=== PATIENT | male | born 1945 | race Caucasian/White ===

== ENCOUNTER 2023-08-24 12:11 | Inpatient (IN) ==
--- NOTE | 2023-08-24 13:38 | Emergency Department Note ---
Impression & Plan Closed hip fracture ED Provider Note NAME: PETER GUZMAN AGE: 77 SEX: M : 1945 ARRIVES VIA: Walk-In INFORMANT: Patient, ED PROVIDER(S): Shen Moore MD CHIEF COMPLAINT: Right hip fracture HPI: Is a 77-year-old male presenting for right hip fracture. Patient has a history of cancer but states that he recently was cleared and was on his way to his oncologist for this news. He was at physical therapy prior where he got a little vertiginous and fell onto the ground. He noted it with a walker at 5 minutes but then had excruciating pain is unable to walk. He notes severe pain in his right hip at this time. They did an outpatient x-ray at the [facility] which revealed a right hip fracture. ROS: See above HPI for pertinent positives & negatives. A total of 10 systems reviewed and were otherwise negative. PHYSICAL EXAMINATION: General: resting comfortably in no acute distress, chronically ill-appearing Head: Normocephalic and atraumatic Eyes: Normal inspection, extraocular muscles intact Ear, nose, throat: Normal external exam Neck: Normal range of motion Respiratory: lungs clear to auscultation bilaterally Cardiovascular: Regular rate/rhythm, no murmur GI: soft, nontender, no guarding or rebound Extremities: Right lower extremity is shortened, normal pulses Neuro: The patient awake and alert, appropriately conversive, no focal deficits, symmetric faces Skin: Warm, dry, and intact MEDICAL DECISION MAKING: This is a 77-year-old male presenting for right hip fracture. Patient had an outpatient x-ray showing hip fracture. Patient currently expresses pain in this area. Otherwise no other traumatic injury on fall. -Will do screening workup with chest x-ray and EKG with blood work. -ECG independently interpreted by me with atrial fibrillation, rate of 89 normal QRS, normal QTc, no ST segment elevations consistent with STEMI criteria -Chest x-ray independently interpreted by me as right pleural effusion, cardiomegaly -Blood work is reassuring anemia otherwise reassuring blood work. - Differential diagnosis: Hip fracture, intracranial hemorrhage, fracture ER treatment provided: See below Diagnostics interpreted by me: ECG: See above Cardiac Monitoring: An order was placed for continuous cardiac monitoring. The monitor shows a rate of 97 with atrial fibrillation rhythm. Laboratory studies: As stated above and show below. Imaging studies: See below. Past Med/Surg History Problem List (Updated 08/25/23 @ 14:24 by Shen Moore MD) Closed hip fracture (Acute) Closed right hip fracture Advanced care planning/counseling discussion Palliative care by specialist Constipation Severe muscle deconditioning Fatigue Poor sleep pattern Disrupted sleep-wake cycle Weakness generalized Dyspnea and respiratory abnormality Chronic hypoxic respiratory failure, on home oxygen therapy Chronic obstructive pulmonary disease Pleural effusion Encounter for pre-operative examination Bladder tumor Medical History PVD (peripheral vascular disease) Severe protein-calorie malnutrition Pyothorax without fistula Hx per records HLD (hyperlipidemia) CHF (congestive heart failure) Anemia (~04/2023) s/p recent blood transfusions Anxiety Atrial fibrillation Taking Eliquis Follows with [facility] [place] Hx: recurrent pneumonia admitted at [facility], required a chest tube for drainage On home oxygen therapy 3L O2 continuous Familial tremor hand tremors consistently Bladder tumor Esophageal cancer Esophageal adenocarcinoma diagnosed January 2023 status post paclitaxel and carboplatin chemoradiation completed 04/2023 Stage 4 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 Surgical History Other artificial openings of gastrointestinal tract status Hx of aortic aneurysm repair "right leg aneurysm fixed" Social History Smoking Status: Former smoker Tobacco Type: Cigarettes and Pipe Cigarettes Per Day: 1 ppd; Second Hand Exposure: No; Do You Dip or Chew Tobacco: No; Tobacco Cessation Education Requested by Patient: No Hx Alcohol Use: Yes Alcohol type: hard liquor Hx Substance Use: No Preferred Language: Wallisian Communication Ability: Effective Jig Inspector Required: No Beliefs That Will Affect Care: None Current Living Situation: Alone Current Living Situation Comment: home in , 2 sons within 3 hours Other Information That Helps Us Care for You: No Feels Safe at Home: Yes Safety Concerns: Feels Safe At This Time Assistive Devices: Denture - Upper, Denture - Lower, Glasses and Walker Assistive Devices Comment: rollator for last 6 weeks Allergies Allergies Allergy/AdvReac Type Severity Reaction Status Date / Time bupropion [From Wellbutrin] Allergy Mild Confusion Verified 07/02/23 09:55 Chantix Allergy Mild Confusion Uncoded 07/02/23 09:55 Home Meds Home Medications Medication Instructions Recorded Confirmed aspirin 81 mg tablet,delayed 81 mg PO DAILY 05/24/23 08/24/23 release (Adult Low Dose Aspirin) atorvastatin 40 mg tablet 40 mg PO QPM 05/24/23 08/24/23 digoxin 125 mcg (0.125 mg) tablet 125 mcg PO DAILY 05/24/23 08/24/23 (Digox) ferrous sulfate 325 mg (65 mg 325 mg PO DAILY 05/24/23 08/24/23 iron) tablet fluticasone propionate 50 1 spray intranasal BID 05/24/23 08/24/23 mcg/actuation nasal spray,suspension (Allergy Relief (fluticasone)) midodrine 10 mg tablet 10 mg PO TID 05/24/23 08/24/23 montelukast 10 mg tablet 10 mg PO DAILY 05/24/23 08/24/23 multivitamin 1 tab PO DAILY 05/24/23 08/24/23 olanzapine 5 mg tablet 5 mg PO QPM 05/24/23 08/24/23 pantoprazole 40 mg tablet,delayed 40 mg PO BID 05/24/23 08/24/23 release amiodarone 200 mg tablet 200 mg PO BID 06/01/23 08/24/23 ascorbate calcium (vitamin C) 500 500 mg PO QAM 06/01/23 08/24/23 mg tablet loratadine 10 mg tablet 10 mg PO QAM 06/01/23 08/24/23 tamsulosin 0.4 mg capsule 0.4 mg PO DAILY 06/01/23 08/24/23 acetaminophen 325 mg tablet 650 mg PO QID PRN Pain 06/05/23 08/24/23 allopurinol 100 mg tablet 100 mg PO DAILY 06/05/23 08/24/23 docusate sodium 100 mg tablet 100 mg PO BID 06/05/23 08/24/23 sodium chloride 0.65 % nasal spray 1 spray intranasal BID PRN dryness 06/05/23 08/24/23 aerosol (Saline Mist) menthol 0.44 %-zinc oxide 20.6 % 1 applic topical QID PRN Rash 06/13/23 08/24/23 topical ointment (Calmoseptine) dabigatran etexilate 150 mg capsule 150 mg PO BID 08/24/23 08/24/23 duloxetine 30 mg capsule,delayed 30 mg PO DAILY 08/24/23 08/24/23 release mirtazapine 15 mg tablet 15 mg PO HS 08/24/23 08/24/23 oxycodone 5 mg tablet 5 mg PO Q4H PRN Pain 08/24/23 08/24/23 Previous Rx's Medication Instructions Recorded albuterol sulfate 90 mcg/actuation 2 puff inhalation Q6H PRN 07/16/23 aerosol inhaler shortness of breath or wheezing #3 Inhalers fluticasone fur. 200 mcg-umeclid 1 inh inhalation DAILY #180 ea 07/16/23 62.5 mcg-vilant 25 mcg inhalat.powder (Trelegy Ellipta) Results & Data (ED) Vital Signs Vital Signs - 24 hr 08/24/23 15:00 08/24/23 15:00 08/24/23 15:30 Pulse Rate 87 Pulse Rate from SpO2 Sensor 91 H Respiratory Rate 21 Blood Pressure 130/90 128/74 Blood Pressure Mean 110 99 Pulse Oximetry 97 Oxygen Delivery Method Room Air Oxygen Flow Rate 08/24/23 15:30 08/24/23 16:00 08/24/23 16:00 Pulse Rate 83 88 Pulse Rate from SpO2 Sensor 90 92 H Respiratory Rate 14 16 Blood Pressure 135/92 Blood Pressure Mean 100 Pulse Oximetry 100 Oxygen Delivery Method Oxymask Oxygen Flow Rate 5 08/24/23 16:30 08/24/23 16:30 08/24/23 16:45 Pulse Rate 84 85 Pulse Rate from SpO2 Sensor 87 Respiratory Rate 19 Blood Pressure 124/86 Blood Pressure Mean 104 Pulse Oximetry 97 Oxygen Delivery Method Oxymask Oxygen Flow Rate 5 08/24/23 17:00 08/24/23 17:00 08/24/23 17:30 Pulse Rate 85 87 Pulse Rate from SpO2 Sensor 93 H 84 Respiratory Rate 18 23 Blood Pressure 121/82 Blood Pressure Mean 91 Pulse Oximetry 100 Oxygen Delivery Method Oxymask Oxygen Flow Rate 5 08/24/23 17:31 08/24/23 17:31 Pulse Rate 76 Pulse Rate from SpO2 Sensor 77 Respiratory Rate 19 Blood Pressure 112/77 Blood Pressure Mean 85 Pulse Oximetry 100 Oxygen Delivery Method Oxymask Oxygen Flow Rate 5 Laboratory Data 08/25/23 05:28 08/25/23 05:28 Lab Results 08/24/23 Range/Units 13:25 WBC 8.86 (4.8-10.8) K/ul RBC 3.03 L (4.70-6.10) M/uL Hgb 9.5 L (14.0-18.0) g/dl Hct 30.0 L (42.0-52.0) % MCV 99.0 (80.0-100.0) fL MCH 31.4 (25.0-34.0) pg MCHC 31.7 L (32.0-36.0) g/dL RDW Std Deviation 58.1 H (36.4-46.3) fL RDW Coeff of Lenore 15.9 H (11.5-14.5) % Plt Count 132 (130-400) K/uL MPV 10.4 (9.4-12.4) fL Immature Gran % (Auto) 0.5 % Neut % (Auto) 82.1 % Lymph % (Auto) 10.8 % Lanier % (Auto) 4.9 % Eos % (Auto) 1.2 % Baso % (Auto) 0.5 % Neut # (Auto) 7.28 H (1.40-6.50) K/uL Lymph # (Auto) 0.96 L (1.20-3.40) K/uL Lanier # (Auto) 0.43 (0.11-0.59) K/uL Eos # (Auto) 0.11 (0.00-0.50) K/uL Baso # (Auto) 0.04 (0.00-0.20) K/uL Immature Gran # (Auto) 0.04 (0.01-0.20) K/uL Sodium 140 (136-145) mmol/L Potassium 3.9 (3.5-5.1) mmol/L Chloride 107 (98-107) mmol/L Carbon Dioxide 29 (21-32) mmol/L Anion Gap 4 (3-11) BUN 24 H (6-23) mg/dl Creatinine 0.68 (0.6-1.4) mg/dl Est Cr Clr Drug Dosing Not Reportable Est GFR ( Amer) 106.8 ml/min Est GFR (Non-Af Amer) 92.1 ml/min BUN/Creatinine Ratio 35.3 H (10-20) Glucose 104 H (70-99(Fasting)) mg/dl Calcium 8.6 (8.6-10.3) mg/dl Administered Medications Allopurinol (Allopurinol 100 Mg Tab) 100 mg PO DAILY DAMION Stop: 09/24/23 08:59 Last Admin: 08/25/23 08:20 Dose: 100 mg Documented By: LAURA Amiodarone HCl (Amiodarone 200 Mg Tab) 200 mg PO BID DAMION Stop: 09/23/23 20:59 Last Admin: 08/25/23 08:21 Dose: 200 mg Documented By: Admin: 08/24/23 22:21 Dose: 200 mg Documented By: KATARINA Digoxin (Digoxin 0.125 Mg Tab) 0.125 mg PO DAILY DAMION Stop: 09/24/23 08:59 Last Admin: 08/25/23 08:21 Dose: 0.125 mg Documented By: LAURA Docusate Sodium (Docusate Sodium 100 Mg Cap) 100 mg PO BID DAMION Stop: 09/23/23 20:59 Last Admin: 08/25/23 08:20 Dose: 100 mg Documented By: Admin: 08/24/23 22:23 Dose: 100 mg Documented By: KATARINA Duloxetine HCl (Duloxetine Hcl 30 Mg Cap) 30 mg PO DAILY DAMION Stop: 09/24/23 08:59 Last Admin: 08/25/23 08:21 Dose: 30 mg Documented By: LAURA Ferrous Sulfate (Ferrous Sulfate 325 Mg Tab) 325 mg PO DAILY DAMION Stop: 09/24/23 08:59 Last Admin: 08/25/23 08:21 Dose: 325 mg Documented By: LAURA Fluticasone Furoate (Fluticasone Furoate 200mcg 14 Puffs/Inhaler) 1 puffs INH DAILY DAMION Stop: 09/24/23 08:59 Last Admin: 08/25/23 08:20 Dose: 1 puffs Documented By: LAURA Hydromorphone HCl (Hydromorphone Inj 1 Mg/Ml Syringe) 1 mg IV Q4H PRN PRN Reason: Severe Pain (7,8,9,10) on NRS Stop: 09/07/23 20:24 Last Admin: 08/25/23 09:25 Dose: 1 mg Documented By: Admin: 08/25/23 05:01 Dose: 1 mg Documented By: Admin: 08/25/23 00:44 Dose: 1 mg Documented By: Admin: 08/24/23 20:44 Dose: 1 mg Documented By: KATARINA Acetaminophen (Ofirmev) 1,000 mg in 100 mls @ 400 mls/hr IV Q8H DAMION Stop: 08/28/23 09:59 Last Infusion: 08/25/23 10:13 Dose: Infused Documented By: Admin: 08/25/23 09:24 Dose: 400 mls/hr Documented By: LAURA Loratadine (Loratadine 10 Mg Tab) 10 mg PO QAM DAMION Stop: 09/24/23 08:59 Last Admin: 08/25/23 08:21 Dose: 10 mg Documented By: LAURA Midodrine (Midodrine Hcl 10 Mg Tab) 10 mg PO TID@0700,1200,1700 DAMION Stop: 09/24/23 06:59 Last Admin: 08/25/23 11:32 Dose: 10 mg Documented By: Admin: 08/25/23 05:01 Dose: 10 mg Documented By: KATARINA Mirtazapine (Mirtazapine Tab 15 Mg Tab) 15 mg PO HS DAMION Stop: 09/23/23 20:59 Last Admin: 08/24/23 22:22 Dose: 15 mg Documented By: KATARINA Montelukast Sodium (Montelukast Sodium 10 Mg Tablet) 10 mg PO DAILY DAMION Stop: 09/24/23 08:59 Last Admin: 08/25/23 08:20 Dose: 10 mg Documented By: LAURA Multivitamins (Multivitamin Tab) 1 tab PO DAILY DAMION Stop: 09/24/23 08:59 Last Admin: 08/25/23 08:20 Dose: 1 tab Documented By: LAURA Olanzapine (Olanzapine 5 Mg Tablet) 5 mg PO QPM DAMION Stop: 09/23/23 20:59 Last Admin: 08/24/23 22:22 Dose: 5 mg Documented By: KATARINA Pantoprazole Sodium (Pantoprazole 40 Mg Tab) 40 mg PO BID DAMION Stop: 09/23/23 20:59 Last Admin: 08/25/23 08:20 Dose: 40 mg Documented By: Admin: 08/24/23 22:23 Dose: 40 mg Documented By: KATARINA Umeclidinium/Vilanterol (Umeclidinium/Vilanterol 62.5/25mcg 7 Puffs/Inhaler) 1 puffs INH DAILY DAMION Stop: 09/24/23 08:59 Last Admin: 08/25/23 08:20 Dose: 1 puffs Documented By: LAURA Discontinued Medications Acetaminophen (Acetaminophen 325 Mg Tab) 650 mg PO QID PRN PRN Reason: Pain Stop: 09/23/23 20:24 Last Admin: 08/25/23 04:34 Dose: 650 mg Documented By: Admin: 08/24/23 20:46 Dose: 650 mg Documented By: KATARINA Furosemide (Furosemide 20 Mg Tab) 20 mg PO NOW STA Stop: 08/24/23 20:26 Last Admin: 08/24/23 22:21 Dose: 20 mg Documented By: KATARINA Hydromorphone HCl (Hydromorphone Inj 0.5 Mg/0.5 Ml Syr) 0.5 mg IV NOW STA Stop: 08/24/23 13:39 Last Admin: 08/24/23 13:49 Dose: 0.5 mg Documented By: ALBA Hydromorphone HCl (Hydromorphone Inj 0.5 Mg/0.5 Ml Syr) 0.5 mg IV NOW STA Stop: 08/24/23 15:15 Last Admin: 08/24/23 15:23 Dose: 0.5 mg Documented By: LINDSEY Ketorolac Tromethamine (Ketorolac Tromethamine 15 Mg/Ml Vial) 15 mg IV NOW ONE Stop: 08/24/23 15:15 Last Admin: 08/24/23 15:23 Dose: 15 mg Documented By: LINDSEY Ketorolac Tromethamine (Ketorolac Tromethamine 15 Mg/Ml Vial) 15 mg IV NOW ONE Stop: 08/24/23 22:03 Last Admin: 08/24/23 22:20 Dose: 15 mg Documented By: KATARINA Potassium Chloride (Potassium Chloride Crtab 20 Meq Tabcr) 20 meq PO NOW STA Stop: 08/24/23 17:53 Last Admin: 08/24/23 18:02 Dose: 20 meq Documented By: LINDSEY Imaging Data Radiologist's Impression: Chest X-Ray 08/24/23 13:29 XR chest 1V portable HISTORY: 77 years-old Male screening COMPARISON: PET CT 07/24/2023, chest radiograph 06/15/2023 TECHNIQUE: AP view of the chest FINDINGS: Cardiac silhouette is enlarged. Severe pulmonary emphysema with chronic interstitial coarsening. Pulmonary vascular congestion. Small right pleural effusion with right greater than left bibasilar densities redemonstrated. Bones appear grossly intact. Right IJ W[place]on-b-Nrte catheter distal tip is noted in the expected location of the right brachiocephalic vein. IMPRESSION: 1. Right pleural effusion redemonstrated along with right greater than left bibasilar consolidation. 2. Emphysema. 3. Cardiomegaly with pulmonary vascular congestion. ACT 112: Negative or not required by law. The above report was generated using voice recognition software. It may contain grammatical, syntax or spelling errors. Electronically signed by: Dimas Wong M.D. 08/24/2023 2:29 PM Discharge Plan Visit Data Chief Complaint: Leg Injury/Pain Stated Complaint: BROKEN FEMUR ED Provider: Shen Moore Discharge Problem: Closed hip fracture Patient Disposition: Admitted As Inpatient Discharge Instructions Interventions: ED Discharge Assessment Last Done: 08/24/23 19:50
[2023-08-24] MEDS: HYDROmorphone INJ 0.5 MG/0.5 ML SYR IV STA ×2 (13:49→15:23)
[2023-08-24 13:59] LABS: Basophils # (auto) 0.04 K/uL (0.00-0.20); Basophils % (auto) 0.5 %; Eosinophils # (auto) 0.11 K/uL (0.00-0.50); Eosinophils % (auto) 1.2 %; Hemoglobin 9.5 g/dl (14.0-18.0); Immature Granulocytes # (auto) 0.04 K/uL (0.01-0.20); Immature Granulocytes % (auto) 0.5 %; Lymphocytes # (auto) 0.96 K/uL (1.20-3.40); Lymphocytes % (auto) 10.8 %; Mean Corpuscular Hemoglobin 31.4 pg (25.0-34.0); Mean Corpuscular Hgb Conc 31.7 g/dL (32.0-36.0); Mean Platelet Volume 10.4 fL (9.4-12.4); Monocytes # (auto) 0.43 K/uL (0.11-0.59); Monocytes % (auto) 4.9 %; Neutrophils # (auto) 7.28 K/uL (1.40-6.50); Neutrophils % (auto) 82.1 %; Platelet Count 132 K/uL (130-400); RDW Coefficient of Variation 15.9 % (11.5-14.5); RDW Standard Deviation 58.1 fL (36.4-46.3); Red Blood Count 3.03 M/uL (4.70-6.10); White Blood Count 8.86 K/ul (4.8-10.8)
[2023-08-24 14:04] LABS: Anion Gap 4 (3-11); BUN Creatinine Ratio 35.3 (10-20); Blood Urea Nitrogen 24 mg/dl (6-23); Calcium 8.6 mg/dl (8.6-10.3); Carbon Dioxide 29 mmol/L (21-32); Chloride 107 mmol/L (98-107); Est GFR (African American) 106.8 ml/min; Est GFR (Non-African American) 92.1 ml/min; Glucose 104 mg/dl (70-99(Fasting)); Potassium 3.9 mmol/L (3.5-5.1); Sodium 140 mmol/L (136-145)
--- NOTE | 2023-08-24 14:10 | Electrocardiogram Report ---
Test Reason : Blood Pressure : / mmHG Vent. Rate : 089 BPM Atrial Rate : 000 BPM P-R Int : 000 ms QRS Dur : 098 ms QT Int : 334 ms P-R-T Axes : 000 013 -58 degrees QTc Int : 406 ms Atrial fibrillation with a competing junctional pacemaker Low voltage QRS Nonspecific ST and T wave abnormality Abnormal ECG No previous ECGs available Confirmed by Godwin Anderson ([id number]) on 08/24/2023 2:09:45 PM Referred By: NO PCP Confirmed By:Godwin Anderson
--- NOTE | 2023-08-24 14:31 | XRay Report ---
XR chest 1V portable HISTORY: 77 years-old Male screening COMPARISON: PET CT 07/24/2023, chest radiograph 06/15/2023 TECHNIQUE: AP view of the chest FINDINGS: Cardiac silhouette is enlarged. Severe pulmonary emphysema with chronic interstitial coarsening. Pulm onary vascular congestion. Small right pleural effusion with right greater than left bibasilar densit ies redemonstrated. Bones appear grossly intact. Right IJ Vnoowp-h-Dslr catheter distal tip is noted in the expected location of the right brachiocephalic vein. IMPRESSION: 1. Right pleural effusion redemonstrated along with right greater than left bibasilar consolidation. 2. Emphysema. 3. Cardiomegaly with pulmonary vascular congestion. ACT 112: Negative or not required by law. The above report was generated using voice recognition software. It may contain grammatical, syntax o r spelling errors. Electronically signed by: Dimas Wong M.D. 08/24/2023 2:29 PM
[2023-08-24] MEDS: KETOROLAC TROMETHAMINE 15 MG/ML VIAL IV ONE ×2 (15:23→22:20)
--- NOTE | 2023-08-24 17:07 | History & Physical Report ---
Date of Service August 24, 2023 Assessment & Plan (1) Closed right hip fracture: Plan: Right hip fracture Hip x-ray: Impacted mildly displaced transcervical right femoral fracture Orthopedics consulted Recommend waiting at least 24 hours for last dose of Pradaxa (08/23 9 AM) prior to proceeding with surgery Nonweightbearing [place] ordered N.p.o. at midnight (2) Atrial fibrillation: Plan: Chronic atrial fibrillation On amiodarone 200 mg twice daily, digoxin 125 mcg/day Was on Eliquis/Xarelto due to cost was continued on Pradaxa with eventual intention to switch to Coumadin but is continued on Pradaxa. Last dose of Pradaxa was 08/23 at approximately 9 AM Last echo with EF 60%, diastolic dysfunction of indeterminate grade noted Chest x-ray: Right pleural effusion with right greater than left bibasilar consolidation. Cardiomegaly with pulmonary vascular congestion is noted (3) CHF (congestive heart failure): Plan: Diastolic CHF Preserved EF, patient has had a transudative pleural effusion in the past and she was bilateral right greater than left effusions with some pulmonary vascular congestion Will add Lasix 20 mg x 1 tonight to volume optimize. Effusion is small, and no overt pulmonary edema is present. He has baseline on 3 L of oxygen Right pleural effusion was initially parapneumonic, no fluid characteristic available for review from [place] however suspect exudative based on association with pneumonia; subsequent tap was a transudative Chronic Hypotension On midodrine 10 mg 3 times daily continued (4) Stage 4 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: Plan: Severe pulmonary emphysema Noted on x-ray PFTs 06/2023 with FEV1 1.17, FEV1/FVC ratio 44%, FEV1 62% predicted consistent with severe airflow obstruction On chronic oxygen, continued (5) Esophageal cancer: Plan: History of esophageal adenocarcinoma S/p chemotherapy, radiation, stent placement and patient recently told that he was cancer free Plan DVT prophylaxis: SCDs, on Pradaxa [employer] Disposition: Medical telemetry for A-fib CODE STATUS: DNR/DNI Diet: N.p.o. at midnight History of Present Illness Primary Care Provider: DEMETRIA PCP Peter is a 77-year-old male with a past medical history of bladder cancer s/p TURBT, Esophageal adenocarcinoma s/p chemotherapy with paclitaxel/carboplatin/radiation completed 04/23/2023/stent placement 04/2023, COPD, A-fib, tobacco use, hypertension, hyperlipidemia, PAD who was recently told he was cancer free and was at physical therapy when he had some dizziness which caused him to fall. He was unable to bear weight at his right hip following this fall and was found to have a hip fracture. Ports using physical therapy exercises and rotating his neck when he had an episode of spinning and lightheadedness which caused him to fall with immediate pain in his right hip and inability to bear weight. Denies chest pain or chest pressure. He reports that he is on oxygen at baseline and has easy fatigue, but has had no change in his usual dyspnea. He has not had syncope and has not hit his head. Denies nausea/vomiting/diarrhea/constipation. No recent fever/chills. He is on Pradaxa and bruises easily, denies recent GI bleeding. Former tobacco use in remission, no recent alcohol use. He is on pradaxa for afib. Takes pradaxa this morning ~7am. No history of stents outside of the esophageal stent which was removed takes aspirin for primary prevention Esophageal cancer free. Had chemoradiation. Stent was removed a few weeks ago. Otherwise was feeling well. No chest pain or chest pressure Had a pleural effusion which was drained with Dr. Negrete 3.15, transudative at the time Had been on lasix in the last year, but not rcently and was on an as needed basis No kidney problems DNR/DNI Allergies Allergy/AdvReac Type Severity Reaction Status Date / Time bupropion [From Wellbutrin] Allergy Mild Confusion Verified 07/02/23 09:55 Chantix Allergy Mild Confusion Uncoded 07/02/23 09:55 Home Medications Medication Instructions Recorded Confirmed Type aspirin 81 mg tablet,delayed 81 mg PO DAILY 05/24/23 08/24/23 History release (Adult Low Dose Aspirin) atorvastatin 40 mg tablet 40 mg PO QPM 05/24/23 08/24/23 History digoxin 125 mcg (0.125 mg) tablet 125 mcg PO DAILY 05/24/23 08/24/23 History (Digox) ferrous sulfate 325 mg (65 mg 325 mg PO DAILY 05/24/23 08/24/23 History iron) tablet fluticasone propionate 50 1 spray intranasal BID 05/24/23 08/24/23 History mcg/actuation nasal spray,suspension (Allergy Relief (fluticasone)) midodrine 10 mg tablet 10 mg PO TID 05/24/23 08/24/23 History montelukast 10 mg tablet 10 mg PO DAILY 05/24/23 08/24/23 History multivitamin 1 tab PO DAILY 05/24/23 08/24/23 History olanzapine 5 mg tablet 5 mg PO QPM 05/24/23 08/24/23 History pantoprazole 40 mg tablet,delayed 40 mg PO BID 05/24/23 08/24/23 History release amiodarone 200 mg tablet 200 mg PO BID 06/01/23 08/24/23 History ascorbate calcium (vitamin C) 500 500 mg PO QAM 06/01/23 08/24/23 History mg tablet loratadine 10 mg tablet 10 mg PO QAM 06/01/23 08/24/23 History tamsulosin 0.4 mg capsule 0.4 mg PO DAILY 06/01/23 08/24/23 History acetaminophen 325 mg tablet 650 mg PO QID PRN Pain 06/05/23 08/24/23 History allopurinol 100 mg tablet 100 mg PO DAILY 06/05/23 08/24/23 History docusate sodium 100 mg tablet 100 mg PO BID 06/05/23 08/24/23 History sodium chloride 0.65 % nasal spray 1 spray intranasal BID PRN dryness 06/05/23 08/24/23 History aerosol (Saline Mist) menthol 0.44 %-zinc oxide 20.6 % 1 applic topical QID PRN Rash 06/13/23 08/24/23 History topical ointment (Calmoseptine) albuterol sulfate 90 mcg/actuation 2 puff inhalation Q6H PRN 07/16/23 08/24/23 Rx aerosol inhaler shortness of breath or wheezing #3 Inhalers fluticasone fur. 200 mcg-umeclid 1 inh inhalation DAILY #180 ea 07/16/23 08/24/23 Rx 62.5 mcg-vilant 25 mcg inhalat.powder (Trelegy Ellipta) dabigatran etexilate 150 mg capsule 150 mg PO BID 08/24/23 08/24/23 History duloxetine 30 mg capsule,delayed 30 mg PO DAILY 08/24/23 08/24/23 History release mirtazapine 15 mg tablet 15 mg PO HS 08/24/23 08/24/23 History oxycodone 5 mg tablet 5 mg PO Q4H PRN Pain 08/24/23 08/24/23 History Past Med/Surg History Problem List Closed right hip fracture Advanced care planning/counseling discussion Palliative care by specialist Constipation Severe muscle deconditioning Fatigue Poor sleep pattern Disrupted sleep-wake cycle Weakness generalized Dyspnea and respiratory abnormality Chronic hypoxic respiratory failure, on home oxygen therapy Chronic obstructive pulmonary disease Pleural effusion Encounter for pre-operative examination Bladder tumor Medical History PVD (peripheral vascular disease) Severe protein-calorie malnutrition Pyothorax without fistula Hx per records HLD (hyperlipidemia) CHF (congestive heart failure) Anemia (~04/2023) s/p recent blood transfusions Anxiety Atrial fibrillation Taking Eliquis Follows with [facility] in [place] Hx: recurrent pneumonia admitted at [facility], required a chest tube for drainage On home oxygen therapy 3L O2 continuous Familial tremor hand tremors consistently Bladder tumor Esophageal cancer Esophageal adenocarcinoma diagnosed January 2023 status post paclitaxel and carboplatin chemoradiation completed 04/2023 Stage 4 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 Surgical History Other artificial openings of gastrointestinal tract status Hx of aortic aneurysm repair "right leg aneurysm fixed" Social History Smoking Status: Former smoker Tobacco Type: Cigarettes Cigarettes Per Day: 1/2 to 1 PPD; Second Hand Exposure: No; Do You Dip or Chew Tobacco: No; Hx Alcohol Use: No Hx Substance Use: No Preferred Language: Czech Communication Ability: Effective Meat Processor Required: No Beliefs That Will Affect Care: None Current Living Situation: Personal Care Facility Feels Safe at Home: Yes Assistive Devices: Denture - Upper, Denture - Lower, Glasses and Oxygen - Continuous Physical Exam Physical Exam: General: A&Ox3. NAD. Cooperative. HEENT: Atraumatic, normocephalic. Vision/hearing intact Pulm: No expiratory wheezing. Diminished in the right lower lobes without rales/crackles. Symmetrical chest rise. No increased work of breathing. No respiratory distress. Cardiac: irir, soft sm. Radial pulses intact and symmetrical. Abdominal: Nontender, nondistended, soft. BS present. ext: Right hip tender to palpation. Ankle dorsiflexion/plantarflexion 5/5 bilaterally and intact sensation of soft touch in the feet bilaterally. PT pulse is intact bilaterally, cap refill in the feet is intact bilaterally Results & Data Results & Data Vital Signs (Past 12 Hours) Vital Signs Temp Pulse Pulse Resp BP BP Pulse Ox 08/24/23 16:45 85 08/24/23 16:30 124/86 08/24/23 16:30 84 19 97 08/24/23 16:00 88 16 100 08/24/23 16:00 135/92 08/24/23 15:30 83 14 08/24/23 15:30 128/74 08/24/23 15:00 87 21 97 08/24/23 15:00 130/90 08/24/23 13:53 83 18 128/77 98 08/24/23 12:41 88 08/24/23 12:21 36.3 C L 94 H 20 107/65 87 L O2 Del Method O2 Flow Rate 08/24/23 16:45 08/24/23 16:30 08/24/23 16:30 Oxymask 5 08/24/23 16:00 Oxymask 5 08/24/23 16:00 08/24/23 15:30 08/24/23 15:30 08/24/23 15:00 Room Air 08/24/23 15:00 08/24/23 13:53 Nasal Cannula 3 08/24/23 12:41 08/24/23 12:21 Room Air PG Care Time/CCT Total # of Minutes Spent Total Time Spent with Patient: Total time spent is greater than 50% in coordination of care (as documented) at patient's floor/unit and/or counseling patient: Coding Level of Care Code 93750 INT INP/OBS CARE 3/75MIN Diagnoses Closed right hip fracture S72.001A Atrial fibrillation I48.91 CHF (congestive heart failure) I50.9 Stage 4 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
[2023-08-24] MEDS: POTASSIUM CHLORIDE CRTAB 20 MEQ TABCR PO STA (18:02)
--- NOTE | 2023-08-24 18:17 | Orthopedic Consultation ---
Date of Consultation August 24, 2023 Assessment & Plan (1) Closed right hip fracture: Discussed the diagnosis and treatment options with the patient and his 2 sons. These include nonsurgical treatment with bedrest then likely inability to ambulate versus surgical treatment. Risks and benefits of surgery were discussed in detail. Clearly he has some medical problems that make him at high risk for morbidity from surgery. However the alternative is also high risk of morbidity. Because of his Pradaxa he is going to need to have his surgery delayed until Sunday to minimize the risk of bleeding. Still has a risk of a blood transfusion even with waiting until Sunday but I think diminished compared to doing it tomorrow. He will be n.p.o. after midnight on Sunday. Surgical site was marked. Informed consent will be obtained prior to surgery. Bedrest until the time of surgery. History of Present Illness History of Present Illness Peter is a 77-year-old male with a past medical history of bladder cancer s/p TURBT, Esophageal adenocarcinoma s/p chemotherapy with paclitaxel/carboplatin/radiation completed 04/23/2023/stent placement 04/2023, COPD, A-fib, tobacco use, hypertension, hyperlipidemia, PAD who was recently told he was cancer free and was at physical therapy when he had some dizziness which caused him to fall. He was unable to bear weight at his right hip following this fall and was found to have a hip fracture. Ports using physical therapy exercises and rotating his neck when he had an episode of spinning and lightheadedness which caused him to fall with immediate pain in his right hip and inability to bear weight. Denies chest pain or chest pressure. He reports that he is on oxygen at baseline and has easy fatigue, but has had no change in his usual dyspnea. He has not had syncope and has not hit his head. Denies nausea/vomiting/diarrhea/constipation. No recent fever/chills. He is on Pradaxa and bruises easily, denies recent GI bleeding. Former tobacco use in remission, no recent alcohol use. He is on pradaxa for afib. Takes pradaxa this morning ~7am. No history of stents outside of the esophageal stent which was removed takes aspirin for primary prevention Esophageal cancer free. Had chemoradiation. Stent was removed a few weeks ago. Otherwise was feeling well. No chest pain or chest pressure Had a pleural effusion which was drained with Dr. Negrete 3.15, transudative at the time Had been on lasix in the last year, but not rcently and was on an as needed basis No kidney problems Orthopedics was consulted for evaluation of his right hip fracture. Patient seen and examined the emergency room. Points to the lateral aspect of the hip where he feels the pain. Denies any back pain knee pain or lower leg pain. Denies numbness or tingling down the leg. Allergies Allergy/AdvReac Type Severity Reaction Status Date / Time bupropion [From Wellbutrin] Allergy Mild Confusion Verified 07/02/23 09:55 Chantix Allergy Mild Confusion Uncoded 07/02/23 09:55 Home Medications Medication Instructions Recorded Confirmed Type aspirin 81 mg tablet,delayed 81 mg PO DAILY 05/24/23 08/24/23 History release (Adult Low Dose Aspirin) atorvastatin 40 mg tablet 40 mg PO QPM 05/24/23 08/24/23 History digoxin 125 mcg (0.125 mg) tablet 125 mcg PO DAILY 05/24/23 08/24/23 History (Digox) ferrous sulfate 325 mg (65 mg 325 mg PO DAILY 05/24/23 08/24/23 History iron) tablet fluticasone propionate 50 1 spray intranasal BID 05/24/23 08/24/23 History mcg/actuation nasal spray,suspension (Allergy Relief (fluticasone)) midodrine 10 mg tablet 10 mg PO TID 05/24/23 08/24/23 History montelukast 10 mg tablet 10 mg PO DAILY 05/24/23 08/24/23 History multivitamin 1 tab PO DAILY 05/24/23 08/24/23 History olanzapine 5 mg tablet 5 mg PO QPM 05/24/23 08/24/23 History pantoprazole 40 mg tablet,delayed 40 mg PO BID 05/24/23 08/24/23 History release amiodarone 200 mg tablet 200 mg PO BID 06/01/23 08/24/23 History ascorbate calcium (vitamin C) 500 500 mg PO QAM 06/01/23 08/24/23 History mg tablet loratadine 10 mg tablet 10 mg PO QAM 06/01/23 08/24/23 History tamsulosin 0.4 mg capsule 0.4 mg PO DAILY 06/01/23 08/24/23 History acetaminophen 325 mg tablet 650 mg PO QID PRN Pain 06/05/23 08/24/23 History allopurinol 100 mg tablet 100 mg PO DAILY 06/05/23 08/24/23 History docusate sodium 100 mg tablet 100 mg PO BID 06/05/23 08/24/23 History sodium chloride 0.65 % nasal spray 1 spray intranasal BID PRN dryness 06/05/23 08/24/23 History aerosol (Saline Mist) menthol 0.44 %-zinc oxide 20.6 % 1 applic topical QID PRN Rash 06/13/23 08/24/23 History topical ointment (Calmoseptine) albuterol sulfate 90 mcg/actuation 2 puff inhalation Q6H PRN 07/16/23 08/24/23 Rx aerosol inhaler shortness of breath or wheezing #3 Inhalers fluticasone fur. 200 mcg-umeclid 1 inh inhalation DAILY #180 ea 07/16/23 08/24/23 Rx 62.5 mcg-vilant 25 mcg inhalat.powder (Trelegy Ellipta) dabigatran etexilate 150 mg capsule 150 mg PO BID 08/24/23 08/24/23 History duloxetine 30 mg capsule,delayed 30 mg PO DAILY 08/24/23 08/24/23 History release mirtazapine 15 mg tablet 15 mg PO HS 08/24/23 08/24/23 History oxycodone 5 mg tablet 5 mg PO Q4H PRN Pain 08/24/23 08/24/23 History Patient History Medical History PVD (peripheral vascular disease) Severe protein-calorie malnutrition Pyothorax without fistula Hx per records HLD (hyperlipidemia) CHF (congestive heart failure) Anemia (~04/2023) s/p recent blood transfusions Anxiety Atrial fibrillation Taking Eliquis Follows with [facility] in [place] Hx: recurrent pneumonia admitted at [facility], required a chest tube for drainage On home oxygen therapy 3L O2 continuous Familial tremor hand tremors consistently Bladder tumor Esophageal cancer Esophageal adenocarcinoma diagnosed January 2023 status post paclitaxel and carboplatin chemoradiation completed 04/2023 Stage 4 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 Surgical History Other artificial openings of gastrointestinal tract status Hx of aortic aneurysm repair "right leg aneurysm fixed" Social History Smoking Status: Former smoker Tobacco Type: Cigarettes Cigarettes Per Day: 1/2 to 1 PPD; Second Hand Exposure: No; Do You Dip or Chew Tobacco: No; Hx Alcohol Use: No Hx Substance Use: No Preferred Language: Swedish Communication Ability: Effective Credit Risk Management Director Required: No Beliefs That Will Affect Care: None Current Living Situation: Personal Care Facility Feels Safe at Home: Yes Assistive Devices: Denture - Upper, Denture - Lower, Glasses and Oxygen - Continuous Physical Exam Physical Exam: Right lower extremity exam reveals the patient to have a shortened and externally rotated leg. He is tender to palpation over the lateral aspect of the hip. Skin is intact. Fires ankle dorsiflexors and plantar flexors and toe flexors and extensors. Reports sensation intact to moving light touch L3-S1 dermatomes. Toes warm and well-perfused. Results & Data Vital Signs (Past 12 Hours) Vital Signs Temp Pulse Pulse Resp BP BP Pulse Ox 08/24/23 17:31 76 19 100 08/24/23 17:31 112/77 08/24/23 17:30 87 23 08/24/23 17:00 121/82 08/24/23 17:00 85 18 100 08/24/23 16:45 85 08/24/23 16:30 124/86 08/24/23 16:30 84 19 97 08/24/23 16:00 88 16 100 08/24/23 16:00 135/92 08/24/23 15:30 83 14 08/24/23 15:30 128/74 08/24/23 15:00 87 21 97 08/24/23 15:00 130/90 08/24/23 13:53 83 18 128/77 98 08/24/23 12:41 88 08/24/23 12:21 36.3 C L 94 H 20 107/65 87 L O2 Del Method O2 Flow Rate 08/24/23 17:31 Oxymask 5 08/24/23 17:31 08/24/23 17:30 08/24/23 17:00 08/24/23 17:00 Oxymask 5 08/24/23 16:45 08/24/23 16:30 05/24/24 16:30 Oxymask 5 08/24/23 16:00 Oxymask 5 08/24/23 16:00 08/24/23 15:30 08/24/23 15:30 08/24/23 15:00 Room Air 08/24/23 15:00 08/24/23 13:53 Nasal Cannula 3 08/24/23 12:41 08/24/23 12:21 Room Air Diagnostic Findings X-rays done of the right hip in the emergency room are reviewed. These show displaced femoral neck fracture on the right hip. No evidence of metastatic disease.
[2023-08-24] MEDS ORDERED: NALOXONE HCL 0.4 MG/1 ML VIAL/CARP IV PRN (20:25)
[2023-08-24] MEDS ORDERED: ALBUTEROL HFA 8 GM INHALER INH PRN (20:25)
[2023-08-24] MEDS ORDERED: bisacodyL 10 MG SUPP PR PRN (20:25)
[2023-08-24] MEDS: HYDROmorphone INJ 1 MG/ML SYRINGE IV PRN (20:44)
[2023-08-24] MEDS: ACETAMINOPHEN 325 MG TAB PO PRN (20:46)
[2023-08-24] MEDS: AMIODARONE 200 MG TAB PO SCH (22:21)
[2023-08-24] MEDS: FUROSEMIDE 20 MG TAB PO STA (22:21)
[2023-08-24] MEDS: OLANZapine 5 MG TABLET PO SCH (22:22)
[2023-08-24] MEDS: MIRTAZAPINE TAB 15 MG TAB PO SCH (22:22)
[2023-08-24] MEDS: PANTOprazole 40 MG TAB PO SCH (22:23)
[2023-08-24] MEDS: DOCUSATE SODIUM 100 MG CAP PO SCH (22:23)
[2023-08-25] MEDS ORDERED: ACETAMINOPHEN 1,000 MG/100 ML VIAL IV PRN (00:01)
[2023-08-25] MEDS: MIDODRINE HCL 10 MG TAB PO SCH (05:01)
[2023-08-25 06:24] LABS: Basophils # (auto) 0.06 K/uL (0.00-0.20); Basophils % (auto) 1.2 %; Eosinophils # (auto) 0.23 K/uL (0.00-0.50); Eosinophils % (auto) 4.6 %; Hematocrit (blood only) 28.4 % (42.0-52.0); Hemoglobin 8.8 g/dl (14.0-18.0); Immature Granulocytes # (auto) 0.01 K/uL (0.01-0.20); Immature Granulocytes % (auto) 0.2 %; Lymphocytes # (auto) 0.72 K/uL (1.20-3.40); Lymphocytes % (auto) 14.3 %; Mean Corpuscular Hemoglobin 30.7 pg (25.0-34.0); Mean Platelet Volume 10.6 fL (9.4-12.4); Monocytes # (auto) 0.39 K/uL (0.11-0.59); Monocytes % (auto) 7.8 %; Neutrophils # (auto) 3.62 K/uL (1.40-6.50); Neutrophils % (auto) 71.9 %; Platelet Count 114 K/uL (130-400); RDW Coefficient of Variation 15.9 % (11.5-14.5); RDW Standard Deviation 58.2 fL (36.4-46.3); Red Blood Count 2.87 M/uL (4.70-6.10); White Blood Count 5.03 K/ul (4.8-10.8)
[2023-08-25 06:38] LABS: Calcium 8.4 mg/dl (8.6-10.3); Est GFR (African American) 102.6 ml/min; Est GFR (Non-African American) 88.5 ml/min; Potassium 4.2 mmol/L (3.5-5.1)
[2023-08-25] MEDS: MONTELUKAST SODIUM 10 MG TABLET PO SCH (08:20)
[2023-08-25] MEDS: MULTIVITAMIN TAB PO SCH (08:20)
[2023-08-25] MEDS: FLUTICASONE FUROATE 200MCG 14 PUFFS/INHALER INH SCH (08:20)
[2023-08-25] MEDS: UMECLIDINIUM/VILANTEROL 62.5/25MCG 7 PUFFS/INHALER INH SCH (08:20)
[2023-08-25] MEDS: allopurinoL 100 MG TAB PO SCH (08:20)
[2023-08-25] MEDS: FERROUS SULFATE 325 MG TAB PO SCH (08:21)
[2023-08-25] MEDS: LORATADINE 10 MG TAB PO SCH (08:21)
[2023-08-25] MEDS: DULoxetine HCL 30 MG CAP PO SCH (08:21)
[2023-08-25] MEDS: DIGOXIN 0.125 MG TAB PO SCH (08:21)
[2023-08-25] MEDS ORDERED: NON-FORMULARY MEDICATION (Fluticasone-Umeclidin-Vilanter [Trelegy Ellipta] 200-62.5-25 mcg INH SCH (09:00)
[2023-08-25] MEDS: ACETAMINOPHEN 1,000 MG/100 ML VIAL IV SCH (09:24)
--- NOTE | 2023-08-25 10:06 | Orthopedic Progress Note ---
Date of Service August 25, 2023 Assessment & Plan (1) Closed right hip fracture: Plan: The patient and his son were educated regarding today's findings. Conservative care measures were discussed. He understands that he will need to be n.p.o. after midnight. Anticipate surgery tomorrow morning. He understands the risks. The procedure was described to him in the presence of his son. Continue nonweightbearing status with bedrest. Admission and Anticipated Discharge Date Admission Date: August 24, 2023 Subjective This 77-year-old male is seen today in his room. He has a known right hip fracture. He is scheduled for surgery tomorrow morning. He states there is some pain in the hip, but he was just given pain medication by the nursing staff to help. His son is at bedside. The patient denies any numbness or tingling. No other complaints at this point. He denies any chest pain, shortness of breath, nausea, vomiting, or abdominal pain. Physical Exam Physical Exam: General: Well-developed, well-nourished, elderly male, in no acute distress. Laying in bed. Alert and oriented. Conversive. Skin: Warm and dry with fair turgor. No rashes. He has no peripheral edema. No erythema or open wounds. Musculoskeletal: The patient has intact motor function of his right ankle and toes. Right hip motion was not attempted due to the known hip fracture. He is able to tighten his quad. No knee motion was attempted. Neurologic: Gross sensation is intact across the right leg by soft touch. Peripheral pulses are 2+. Results & Data Vital Signs (Past 12 Hours) Vital Signs Temp Pulse Pulse Resp BP Pulse Ox O2 Del Method 08/25/23 09:45 85 08/25/23 09:16 68 08/25/23 08:21 89 08/25/23 07:59 36.8 C 89 18 103/75 96 Room Air 08/25/23 07:52 Nasal Cannula 08/25/23 04:31 101/70 08/25/23 03:00 36.4 C L 77 18 95/63 L 98 Nasal Cannula 08/24/23 23:11 36.4 C L 85 20 121/80 94 Nasal Cannula 08/24/23 22:18 89 O2 Flow Rate 08/25/23 09:45 08/25/23 09:16 08/25/23 08:21 08/25/23 07:59 08/25/23 07:52 4 08/25/23 04:31 08/25/23 03:00 5 08/24/23 23:11 5 08/24/23 22:18 Laboratory Results CBC obtained this morning shows a white count of 5.03. H&H of 8.8 and 28.4. Platelets are low at 114,000. Renal function and electrolytes are unremarkable. Glucose this morning was 82.
--- NOTE | 2023-08-25 10:49 | Hospitalist Progress Note ---
Date of Service August 25, 2023 Assessment & Plan (1) Closed right hip fracture: Plan: Patient was at physical therapy when he experienced dizziness resulting in a fall. He was unable to bear weight on his right hip following this fall. -Hip x-ray 08/24/2023 revealed impacted mildly displaced transcervical right femoral fracture -Last dose of Pradaxa in a.m. of 08/24/2023 -Pradaxa held with plan for surgical intervention with Ortho. Continue to hold. -Patient is nonweightbearing with bed rest at this time -Haywood ordered. Patient has been refusing Haywood so far. -Right bipolar hip prosthesis surgery scheduled for tomorrow, 08/26/[address] Novak. -Type/cross and type and screen: Blood type AB+, antibody screen negative - N.p.o. at midnight -Dilaudid as needed for pain (2) Atrial fibrillation: Plan: Chronic atrial fibrillation On amiodarone 200 mg twice daily, digoxin 125 mcg/day Was on Eliquis/Xarelto due to cost was continued on Pradaxa with eventual intention to switch to Coumadin but is continued on Pradaxa. Last dose of Pradaxa was 08/23 at approximately 9 AM Last echo with EF 60%, diastolic dysfunction of indeterminate grade noted Chest x-ray: Right pleural effusion with right greater than left bibasilar consolidation. Cardiomegaly with pulmonary vascular congestion is noted (3) CHF (congestive heart failure): Plan: Diastolic congestive heart failure with preserved EF, patient has had a transudative pleural effusion in the past and bilateral right greater than left effusions with some pulmonary vascular congestion Effusion is small, and no overt pulmonary edema is present. He has baseline on 3 L of oxygen Right pleural effusion was initially parapneumonic, no fluid characteristic available for review from [place] however suspect exudative based on association with pneumonia; subsequent tap was a transudative Chronic Hypotension On midodrine 10 mg 3 times daily continued (4) Stage 4 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: Plan: Severe pulmonary emphysema Noted on x-ray PFTs 06/2023 with FEV1 1.17, FEV1/FVC ratio 44%, FEV1 62% predicted consistent with severe airflow obstruction On chronic oxygen, continued (5) Esophageal cancer: Plan: History of esophageal adenocarcinoma S/p chemotherapy, radiation, stent placement and patient recently told that he was cancer free Plan Resumed diet for today with n.p.o. status at midnight for scheduled surgery tomorrow morning, 08/26/2023 Blood type and screened Monitored A-fib on telemetry DVT prophylaxis: SCDs, Pradaxa on hold due to pending surgical intervention CODE STATUS: DNR/DNI Admission and Anticipated Discharge Date Admission Date: August 24, 2023 Subjective Patient seen and evaluated at bedside. He reports that he was just given some pain medication and his pain is currently well-controlled. We discussed the plan for surgery tomorrow morning, NPO status at midnight, and possible need for a blood transfusion postoperatively depending on his hemoglobin. Patient is understanding and agreeable. He reports that he did not sleep too well last night and would just like to rest today. Patient denies back pain, knee pain, lower leg pain, numbness, or tingling down his right leg. He has no additional complaints at this time. Physical Exam Physical Exam: General: No acute distress, nondiaphoretic, well-developed, well-nourished. Skin: The skin was without rashes, erythema, edema, or bruising. Cardiac: Irregularly irregular without murmurs gallops or rubs. Pulm: Diminished breath sounds at bases. Otherwise clear to auscultation. Prolonged phase of exhalation. No wheezing. Abdominal: Positive bowel sounds x 4. Soft, nontender, without masses or organomegaly. No guarding or rebound tenderness. Neuro: A&O x3. No focal neurological deficits. Gross sensation is intact across the right leg by soft touch. Peripheral pulses are 2+. MSK: The patient has intact motor function of his right ankle and toes. Right hip motion was not attempted due to the known hip fracture. He is able to tighten his quad. No knee motion was attempted. Results & Data Results & Data Vital Signs (Past 12 Hours) Vital Signs Temp Pulse Pulse Resp BP Pulse Ox O2 Del Method 08/25/23 09:45 85 08/25/23 09:16 68 08/25/23 08:21 89 08/25/23 07:59 36.8 C 89 18 103/75 96 Room Air 08/25/23 07:52 Nasal Cannula 08/25/23 04:31 101/70 08/25/23 03:00 36.4 C L 77 18 95/63 L 98 Nasal Cannula 08/24/23 23:11 36.4 C L 85 20 121/80 94 Nasal Cannula O2 Flow Rate 08/25/23 09:45 08/25/23 09:16 08/25/23 08:21 08/25/23 07:59 08/25/23 07:52 4 08/25/23 04:31 08/25/23 03:00 5 08/24/23 23:11 5 Laboratory Results Reviewed CBC Reviewed BMP Reviewed chemistry Diagnostic Findings Reviewed hip x-ray 08/24/2023 FINDINGS: [id number] osteoarthritis of the hips. Degenerative changes of the pelvis and imaged lower lumbar spine. No avascular necrosis or destructive bone lesions identified. There is an acute transcervical right femoral fracture with impaction and superolateral displacement of approximately 1.5 cm. Mild adjacent soft tissue swelling. Surgical clips of the right medial thigh. IMPRESSION: Acute impacted and mildly displaced transcervical right femoral fracture. Reviewed CXR 08/24/2023 FINDINGS: Cardiac silhouette is enlarged. Severe pulmonary emphysema with chronic interstitial coarsening. Pulmonary vascular congestion. Small right pleural effusion with right greater than left bibasilar densities redemonstrated. Bones appear grossly intact. Right IJ Sefdlk-v-Hfjt catheter distal tip is noted in the expected location of the right brachiocephalic vein. IMPRESSION: 1. Right pleural effusion redemonstrated along with right greater than left bibasilar consolidation. 2. Emphysema. 3. Cardiomegaly with pulmonary vascular congestion. 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
--- NOTE | 2023-08-25 11:11 | Anesthesiology Consultation ---
Date of Service August 25, 2023 Assessment & Plan (1) Encounter for pre-operative examination: needs type and cross due to preop anemia and potential blood loss Chart Review Chart Review: Acceptable Risk for Surgery (High risk of pulmonary complications) Spinal anesthesia would only be an option after being off pradaxa for 5 days History Surgery Operation Date: 08/26/23 10:00 Proposed Procedures p Bipolar Hip Prosthesis(Right) - Rafi Novak MD Height/Weight Height: 6 ft Weight: 77.111 kg Allergies Allergy/AdvReac Type Severity Reaction Status Date / Time bupropion [From Wellbutrin] Allergy Mild Confusion Verified 07/02/23 09:55 Chantix Allergy Mild Confusion Uncoded 07/02/23 09:55 Medications Home Medications Medication Instructions Recorded Confirmed Last Taken aspirin 81 mg tablet,delayed 81 mg PO DAILY 05/24/23 08/24/23 08/24/23 release (Adult Low Dose Aspirin) atorvastatin 40 mg tablet 40 mg PO QPM 05/24/23 08/24/23 06/18/23 20:00 digoxin 125 mcg (0.125 mg) tablet 125 mcg PO DAILY 05/24/23 08/24/23 08/24/23 (Digox) ferrous sulfate 325 mg (65 mg 325 mg PO DAILY 05/24/23 08/24/23 08/24/23 iron) tablet fluticasone propionate 50 1 spray intranasal BID 05/24/23 08/24/23 08/24/23 mcg/actuation nasal spray,suspension (Allergy Relief (fluticasone)) midodrine 10 mg tablet 10 mg PO TID 05/24/23 08/24/23 08/24/23 montelukast 10 mg tablet 10 mg PO DAILY 05/24/23 08/24/23 06/18/23 16:00 multivitamin 1 tab PO DAILY 05/24/23 08/24/23 08/24/23 olanzapine 5 mg tablet 5 mg PO QPM 05/24/23 08/24/23 06/18/23 20:00 pantoprazole 40 mg tablet,delayed 40 mg PO BID 05/24/23 08/24/23 08/24/23 release amiodarone 200 mg tablet 200 mg PO BID 06/01/23 08/24/23 08/24/23 ascorbate calcium (vitamin C) 500 500 mg PO QAM 06/01/23 08/24/23 08/24/23 mg tablet loratadine 10 mg tablet 10 mg PO QAM 06/01/23 08/24/23 08/24/23 tamsulosin 0.4 mg capsule 0.4 mg PO DAILY 06/01/23 08/24/23 06/18/23 16:00 acetaminophen 325 mg tablet 650 mg PO QID PRN Pain 06/05/23 08/24/23 Unknown allopurinol 100 mg tablet 100 mg PO DAILY 06/05/23 08/24/23 08/24/23 docusate sodium 100 mg tablet 100 mg PO BID 06/05/23 08/24/23 08/24/23 sodium chloride 0.65 % nasal spray 1 spray intranasal BID PRN dryness 06/05/23 08/24/23 Unknown aerosol (Saline Mist) menthol 0.44 %-zinc oxide 20.6 % 1 applic topical QID PRN Rash 06/13/23 08/24/23 Unknown topical ointment (Calmoseptine) albuterol sulfate 90 mcg/actuation 2 puff inhalation Q6H PRN 07/16/23 08/24/23 Unknown aerosol inhaler shortness of breath or wheezing #3 Inhalers fluticasone fur. 200 mcg-umeclid 1 inh inhalation DAILY #180 ea 07/16/23 08/24/23 08/24/23 62.5 mcg-vilant 25 mcg inhalat.powder (Trelegy Ellipta) dabigatran etexilate 150 mg capsule 150 mg PO BID 08/24/23 08/24/23 08/24/23 duloxetine 30 mg capsule,delayed 30 mg PO DAILY 08/24/23 08/24/23 08/24/23 release mirtazapine 15 mg tablet 15 mg PO HS 08/24/23 08/24/23 Unknown oxycodone 5 mg tablet 5 mg PO Q4H PRN Pain 08/24/23 08/24/23 Unknown Active Medications Generic Name Dose Route Start Last Admin Trade Name Freq PRN Reason Stop Dose Admin Allopurinol 100 mg 08/25/23 09:00 08/25/23 08:20 Allopurinol 100 Mg Tab PO 09/24/23 08:59 100 mg DAILY DAMION Administration Amiodarone HCl 200 mg 08/24/23 21:00 08/25/23 08:21 Amiodarone 200 Mg Tab PO 09/23/23 20:59 200 mg BID DAMION Administration Digoxin 0.125 mg 08/25/23 09:00 08/25/23 08:21 Digoxin 0.125 Mg Tab PO 09/24/23 08:59 0.125 mg DAILY DAMION Administration Docusate Sodium 100 mg 08/24/23 21:00 08/25/23 08:20 Docusate Sodium 100 Mg Cap PO 09/23/23 20:59 100 mg BID DAMION Administration Duloxetine HCl 30 mg 08/25/23 09:00 08/25/23 08:21 Duloxetine Hcl 30 Mg Cap PO 09/24/23 08:59 30 mg DAILY DAMION Administration Ferrous Sulfate 325 mg 08/25/23 09:00 08/25/23 08:21 Ferrous Sulfate 325 Mg Tab PO 09/24/23 08:59 325 mg DAILY DAMION Administration Fluticasone Furoate 1 puffs 08/25/23 09:00 08/25/23 08:20 Fluticasone Furoate 200mcg 14 Puffs/Inhaler INH 09/24/23 08:59 1 puffs DAILY DAMION Administration Hydromorphone HCl 1 mg 08/24/23 20:25 08/25/23 09:25 Hydromorphone Inj 1 Mg/Ml Syringe IV 09/07/23 20:24 1 mg Q4H PRN Administration Severe Pain (7,8,9,10) on NRS Acetaminophen 1,000 mg in 100 mls @ 400 mls/hr 08/25/23 10:00 08/25/23 10:13 Ofirmev IV 08/28/23 09:59 Infused Q8H DAMION Infusion Loratadine 10 mg 08/25/23 09:00 08/25/23 08:21 Loratadine 10 Mg Tab PO 09/24/23 08:59 10 mg QAM DAMION Administration Midodrine 10 mg 08/25/23 07:00 08/25/23 05:01 Midodrine Hcl 10 Mg Tab PO 09/24/23 06:59 10 mg TID@0700,1200,1700 DAMION Administration Mirtazapine 15 mg 08/24/23 21:00 08/24/23 22:22 Mirtazapine Tab 15 Mg Tab PO 09/23/23 20:59 15 mg HS DAMION Administration Montelukast Sodium 10 mg 08/25/23 09:00 08/25/23 08:20 Montelukast Sodium 10 Mg Tablet PO 09/24/23 08:59 10 mg DAILY DAMION Administration Multivitamins 1 tab 08/25/23 09:00 08/25/23 08:20 Multivitamin Tab PO 09/24/23 08:59 1 tab DAILY DAMION Administration Olanzapine 5 mg 08/24/23 21:00 08/24/23 22:22 Olanzapine 5 Mg Tablet PO 09/23/23 20:59 5 mg QPM DAMION Administration Pantoprazole Sodium 40 mg 08/24/23 21:00 08/25/23 08:20 Pantoprazole 40 Mg Tab PO 09/23/23 20:59 40 mg BID DAMION Administration Umeclidinium/Vilanterol 1 puffs 08/25/23 09:00 08/25/23 08:20 Umeclidinium/Vilanterol 62.5/25mcg 7 Puffs/Inhaler INH 09/24/23 08:59 1 puffs DAILY DAMION Administration Past Medical History Medical History PVD (peripheral vascular disease) Severe protein-calorie malnutrition Pyothorax without fistula Hx per records HLD (hyperlipidemia) CHF (congestive heart failure) Anemia (~04/2023) s/p recent blood transfusions Anxiety Atrial fibrillation Taking Eliquis Follows with [facility] [place] Hx: recurrent pneumonia admitted at [facility], required a chest tube for drainage On home oxygen therapy 3L O2 continuous Familial tremor hand tremors consistently Bladder tumor Esophageal cancer Esophageal adenocarcinoma diagnosed January 2023 status post paclitaxel and carboplatin chemoradiation completed 04/2023 Stage 4 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 Past Surgical History Surgical History Other artificial openings of gastrointestinal tract status Hx of aortic aneurysm repair "right leg aneurysm fixed" Social History Smoking Status: Former smoker Smoking cigarettes per day: 1 ppd Do You Dip or Chew Tobacco: No Hx Alcohol Use: Yes Alcohol type: hard liquor alcohol intake frequency: holidays/special occasions only Alcohol Intake Frequency Comment: 3 drinks since Hx Substance Use: No substance use type: does not use Physical Exam Vital Signs Last Vital Signs Temp 36.8 C 05/25/24 07:59 Pulse 85 08/25/23 09:45 Resp 18 08/25/23 07:59 BP 103/75 08/25/23 07:59 Pulse Ox 96 08/25/23 07:59 O2 Del Method Room Air 08/25/23 07:59 O2 Flow Rate 4 08/25/23 07:52 Testing Laboratory Results 08/25/23 05:28 08/25/23 05:28 Electrocardiogram Date: 08/24/23 Findings: + AFIB @ (89) Echocardiogram Date: 03/28/23 EF: 60% LV Function: normal RWMA: + none Other Findings: + diastolic dysfunction RV normal function no pulmonary hypertension
[2023-08-25] MEDS ORDERED: SODIUM CHLORIDE 0.9% 250 ML IV PRN (11:12)
[2023-08-26] MEDS: HYDROmorphone INJ 0.5 MG/0.5 ML SYR IV PRN (00:35)
[2023-08-26 06:35] LABS: Basophils # (auto) 0.03 K/uL (0.00-0.20); Basophils % (auto) 0.5 %; Eosinophils # (auto) 0.22 K/uL (0.00-0.50); Eosinophils % (auto) 3.6 %; Hematocrit (blood only) 27.3 % (42.0-52.0); Hemoglobin 8.5 g/dl (14.0-18.0); Immature Granulocytes # (auto) 0.02 K/uL (0.01-0.20); Immature Granulocytes % (auto) 0.3 %; Lymphocytes # (auto) 0.89 K/uL (1.20-3.40); Lymphocytes % (auto) 14.5 %; Mean Corpuscular Hemoglobin 30.5 pg (25.0-34.0); Mean Corpuscular Hgb Conc 31.1 g/dL (32.0-36.0); Mean Corpuscular Volume 97.8 fL (80.0-100.0); Mean Platelet Volume 10.9 fL (9.4-12.4); Monocytes # (auto) 0.35 K/uL (0.11-0.59); Monocytes % (auto) 5.7 %; Neutrophils # (auto) 4.63 K/uL (1.40-6.50); Neutrophils % (auto) 75.4 %; Platelet Count 118 K/uL (130-400); RDW Coefficient of Variation 15.9 % (11.5-14.5); RDW Standard Deviation 57.3 fL (36.4-46.3); Red Blood Count 2.79 M/uL (4.70-6.10); White Blood Count 6.14 K/ul (4.8-10.8)
[2023-08-26 06:45] LABS: BUN Creatinine Ratio 36.9 (10-20); Creatinine Clr Calc Pharmacy 103.9 ml/min; Est GFR (African American) 108.8 ml/min; Est GFR (Non-African American) 93.8 ml/min; Potassium 4.2 mmol/L (3.5-5.1)
[2023-08-26] MEDS ORDERED: PROPOFOL IV EMULSION 10 MG/ML 20 ML VIAL IV ONE (07:04)
[2023-08-26] MEDS ORDERED: DexMEDEtomidine HCL IV 100 MCG/ML VIAL IV ONE (07:04)
[2023-08-26] MEDS ORDERED: KETAMINE HCL 10MG/ML SYR ONE (07:05)
[2023-08-26] MEDS ORDERED: MIDAZOLAM HCL 1 MG/ML 2ML VIAL ONE (07:05)
[2023-08-26] MEDS ORDERED: Nursing to Pharmacy Communication SCH (07:15)
[2023-08-26] MEDS ORDERED: SODIUM CHLORIDE 0.9% PF INJ 10 ML VIAL ONE (07:16)
[2023-08-26] MEDS ORDERED: fentaNYL citrate PF 100 MCG/2 ML VIAL ONE (07:18)
--- NOTE | 2023-08-26 07:21 | Orthopedic Progress Note ---
Date of Service August 26, 2023 Assessment & Plan (1) Closed hip fracture: Plan Proceed to OR this morning for cemented hemiarthroplasty of right hip. Informed consent signed and placed on chart. Surgical site marked. Re-admit to internal medicine after surgery. High likelihood he will need a blood transfusion given his low H&H. He has been typed and crossed. Admission and Anticipated Discharge Date Admission Date: August 24, 2023 Subjective Patient seen and examined on AM rounds. He has been NPO since midnight last night. He reports he is ready for surgery today. Physical Exam Physical Exam: Right lower extremity exam reveals the patient to have a shortened and externally rotated leg. He is tender to palpation over the lateral aspect of the hip. Skin is intact. Fires ankle dorsiflexors and plantar flexors and toe flexors and extensors. Reports sensation intact to moving light touch L3-S1 dermatomes. Toes warm and well-perfused. Results & Data Vital Signs (Past 12 Hours) Vital Signs Temp Pulse Pulse Resp BP Pulse Ox O2 Del Method 08/26/23 06:58 Nasal Cannula 08/26/23 02:57 36.8 C 92 H 18 105/74 95 Nasal Cannula 08/25/23 23:36 84 08/25/23 23:00 36.8 C 96 H 18 117/79 95 Nasal Cannula 08/25/23 19:40 36.4 C L 76 20 99/65 L 95 Nasal Cannula 08/25/23 19:20 Nasal Cannula O2 Flow Rate 08/26/23 06:58 4 08/26/23 02:57 4 08/25/23 23:36 08/25/23 23:00 3.5 08/25/23 19:40 3.5 08/25/23 19:20 4 Laboratory Results Hg 8.5 this morning
[2023-08-26] MEDS ORDERED: KETOROLAC 30 MG/ML VIAL IV PRN (07:36)
[2023-08-26] MEDS ORDERED: HYDROmorphone INJ 1 MG/ML SYRINGE IV PRN (07:36)
[2023-08-26] MEDS ORDERED: PROMETHAZINE HCL 6.25 MG in SODIUM CHLORIDE 0.9% 50 ML IV PRN (07:36)
[2023-08-26] MEDS ORDERED: ePHEDrine sulfate 50 MG/ML AMP IV PRN (07:36)
[2023-08-26] MEDS ORDERED: ATROPINE SULFATE 0.1 MG/ML 10ML SYR IV PRN (07:36)
[2023-08-26] MEDS ORDERED: ONDANSETRON INJ 2 MG/ML 2 ML VIAL IV PRN ×2 (07:36→10:28)
[2023-08-26] MEDS: ceFAZolin 2000MG 2,000 MG/15 ML SYR IV ONE (08:08)
[2023-08-26] MEDS ORDERED: DEXAMETHASONE SOD INJ 4 MG/ML VIAL ONE (08:51)
[2023-08-26] MEDS ORDERED: PHENYLEPHRINE 100MCG/ML 10ML SYR IV ONE (08:51)
[2023-08-26] MEDS ORDERED: ONDANSETRON INJ 2 MG/ML 2 ML VIAL ONE (08:51)
[2023-08-26] MEDS ORDERED: PHENYLEPHRINE HCL 10 MG/ML VIAL ONE (08:51)
[2023-08-26] MEDS ORDERED: ALBUTEROL HFA 8 GM INHALER INH ONE (08:51)
[2023-08-26] MEDS ORDERED: ceFAZolin 330 MG/ML 1 GM VIAL ONE (08:51)
[2023-08-26] MEDS: TRANEXAMIC ACID / 0.7% NACL 1000MG/100ML BAG IV ONE (08:59)
[2023-08-26] MEDS: ROPIVACAINE 0.5% HCL/PF 246 MG, Ketorolac (*for OR use only*) 30 MG, EPINEPHrine 30MG/3... INFIL SCH (08:59)
[2023-08-26] MEDS ORDERED: ROCURONIUM BROMIDE 10 MG/ML 5 ML VIAL IV ONE (09:06)
[2023-08-26] MEDS ORDERED: SUGAMMADEX SODIUM 200 MG/2 ML VIAL IV ONE (09:07)
[2023-08-26] MEDS ORDERED: LARYING-O-JET KIT (LTA) ONE (09:17)
--- NOTE | 2023-08-26 09:50 | Operative Report ---
Post Operative Report Pre & Post Diagnosis Operation Date: 08/26/23 10:00 preoperative diagnosis: Right displaced femoral neck fracture Postoperative diagnosis: Right displaced femoral neck fracture I identified the patient and participated in the time-out.: Yes Procedure Operation Date: 08/26/23 10:00 cemented hemiarthroplasty right hip Surgeon Rafi Novak MD Project Manager Eric Carreno PA-C. No resident or fellow was available to assist. Estimated Blood Loss 100 Findings Consistent with Post-Op Diagnosis Fluids 600 cc crystalloid and 1 unit (300 cc) of packed red blood cells Specimens right femoral head Anesthesia Type General Complications none Disposition Disposition: Recovery Room Indications 77-year-old male, fell 2 days ago sustaining a displaced right femoral neck fracture. He had pain and inability to ambulate afterwards. Presented to the emergency room on Sunday night. He is on a blood thinner Pradaxa. I had a long discussion with the patient and his family members about his diagnosis. Surgi ryne and nonsurgical treatment options were reviewed. Patient and the family elected to proceed with surgery. All questions were answered. Informed consent was signed. We did elect to delay the surgery until Sunday and in order to decrease his risk of bleeding because of the long-lasting flap effects of the Pradaxa. Description of Procedure Patient was identified in the preoperative holding area where his surgical site was marked. He was brought back to the operating room where general anesthesia was administered on the hospital bed. Of note, he did have low blood pressure Prior to incision, so anesthesia had to start a norepinephrine drip. Therefore, the decision was made to give him a unit of packed red blood cells. He was then carefully moved onto the operating room table. Then he was carefully moved into the lateral decubitus position. Axillary roll was placed. He was stabilized with the stuhlberg. All bony prominences were padded. Perioperative antibiotics and 1 g of IV tranexamic acid were administered. He was prepped and draped in the usual sterile fashion. Prior to incision a multidisciplinary timeout was called. All in the room were in agreement. I began by making a 10 cm long incision for posterior approach to the hip. I dissected down through subcutaneous tissues. There was some bruising in the subcutaneous tissues. The fascial layer was identified. Fascia was incised in line with the incision splitting the fibers of the gluteus michael. Charnley retractor was placed. Inspection of the subfascial tissue revealed hematoma sitting in the posterior aspect of the hip distal to the short external rotators. Large chunks of hematoma were removed by hand. We tried to evacuate as much of the hematoma as possible without causing more bleeding. This was then irrigated out and dried. Next, the trochanteric bursa was reflected off the short external rotators and piriformis which were exposed. Fascia overlying the piriformis and gluteus minimus was split just above the piriformis and the gluteus minimus was retracted off the capsule. An L-shaped capsulotomy was then performed removing the piriformis and short external rotators and 1 sleeve subperiosteally off the posterior aspect of the femur. Internal rotation revealed the femoral neck fracture. A saw was used to freshen up the femoral neck. Bony fragments were removed. Acetabular retractors were then placed and the femoral head was removed using a corkscrew. This was sized on the back table to a size 50. I removed a small remnant of the ligamentum teres and irrigated out the acetabulum. We then used a size 50 trial which gave us an excellent suction seal within the acetabulum. Next, we turned our attention towards the femur. The lateral neck was removed with a box osteotome. The canal finder was used followed by the lateralizing reamer. I then broached him up to a size 3 [place]. We trialed with a +5 head. This gave us excellent stability and catholic of leg lengths. At 90 degrees of hip flexion he could be internally rotated 55 degrees easily. Stable in the sleeper position. Shuck test was within normal limits. He was stable in extension and external rotation. I was very happy with the stability exam. Therefore the hip was atraumatically dislocated and the femoral trial was remov ed. Femoral canal was irrigated out and dried. The cement restrictor was placed distally. Cement was mixed on the back table. [place] cement was then injected into the femoral canal and pressurized using my thumbs. I then inserted the size 3 standard offset [place] cemented femoral stem with a collar down into the cement. Excess cement was removed. The femoral component was held in approximately 20 degrees of femoral neck anteversion while the cement cured. Once the cement had completely cured after approximately 12 minutes we then cleaned and dried the tongue trunnion. The bipolar head was assembled on the back table using a +5 offset to match our trial. This was gently impacted onto the trunnion. The hip was atraumatically reduced. We then began to close. Wound was irrigated out with copious amounts of sterile Betadine solution. The injection cocktail of ropivacaine epinephrine and ketorolac was injected in the subcutaneous tissues. Betadine was irrigated out and the wound was irrigated out with copious amounts normal saline. The piriformis short external rotators and capsule were closed using 2-0 Vicryl sutures through 1 bone tunnel and the a split in the hip abductor tendon. These were tied down over a bony bridge. Fascia was closed with a running looped #1 PDS. Subcutaneous layer was closed with #1 PDS. Deep dermal layer was closed with 2-0 Vicryl in running fashion. The skin was closed with a Zipline and Dermabond. Silverlon dressing was placed. Compressive dressing of 4 x 4's ABD and foam tape was placed. Patient was then awoken from general anesthesia, carefully rolled supine and transferred to the hospital bed. He was then transferred to the recovery room in stable condition. Postoperative course: patient will be readmitted to the internal medicine service. He will be weightbearing as tolerated with posterior hip precautions. The abduction pillow is to be worn for the next 6 weeks while he is in bed. Restart his Pradaxa tomorrow for DVT prophylaxis. X-rays pending in the recovery room. I attest to the content of the Intraoperative Record and any orders documented therein. Any exceptions are noted below.
--- NOTE | 2023-08-26 09:59 | Operative Report ---
Post Operative Report Pre & Post Diagnosis Operation Date: 08/26/23 10:00 Pre-Op Diagnosis: Closed hip fracture Post-Op Diagnosis: Closed hip fracture I identified the patient and participated in the time-out.: Yes Procedure Operation Date: 08/26/23 10:00 Actual Procedures p Bipolar Hip Prosthesis(Right) - Rafi Novak MD Surgeon GIGI Novak MD Boat Worker Eric Carreno PA-C. No resident or fellow was available to assist. Estimated Blood Loss 100 Findings Consistent with Post-Op Diagnosis see operative report Specimens see operative report Drains none Complications none Disposition Accompanied Patient To Recovery: Yes Indications This 77 year old male was seen in consultation for a right hip fracture. He and his family elected to proceed with surgical intervention after being educated about potential risks and outcomes. Preoperative imaging was obtained. Description of Procedure The patient was taken to the operating room where he was given general anesthesia. He was prepped and draped in the usual sterile fashion. Please see Dr. Novak's operative report for specifics of the procedure. I was present for the entire case from initial patient positioning through final wound closure. Assistance was provided in tissue retraction, hemostasis, trial implant placement, final implant placement, and final wound closure. The patient was taken to the recovery room in satisfactory condition. I attest to the content of the Intraoperative Record and any orders documented therein. Any exceptions are noted below.
[2023-08-26] MEDS ORDERED: METOCLOPRAMIDE HCL INJ 5 MG/ML 2 ML VIAL IV PRN (10:28)
[2023-08-26] MEDS ORDERED: diphenhydrAMINE 50 MG/ML VIAL IV PRN (10:28)
[2023-08-26] MEDS ORDERED: ALUMINUM/MAGNESIUM SUSP 30 ML UDC PO PRN (10:28)
[2023-08-26] MEDS: SODIUM CHLORIDE 0.9% 1,000 ML IV SCH (10:39)
--- NOTE | 2023-08-26 10:41 | Anesthesiology Progress Note ---
Date of Service August 26, 2023 Anesthesia Post Procedure Vital Signs Vital Signs: Temp Pulse Pulse Pulse Resp BP Pulse Ox 08/26/23 10:28 36.7 C 96 H 18 94/69 L 90 08/26/23 10:20 90 14 99/73 L 92 08/26/23 10:10 37.0 C 97 H 14 103/61 93 08/26/23 10:00 88 14 108/77 94 08/26/23 09:50 86 14 113/75 92 08/26/23 09:43 36.3 C L 95 H 20 137/84 94 08/26/23 07:25 90 08/26/23 07:22 36.9 C 112 H 18 123/79 93 08/26/23 06:58 08/26/23 02:57 36.8 C 92 H 18 105/74 95 08/25/23 23:36 84 08/25/23 23:00 36.8 C 96 H 18 117/79 95 08/25/23 19:40 36.4 C L 76 20 99/65 L 95 08/25/23 19:20 08/25/23 15:15 36.8 C 98 H 18 99/67 L 97 08/25/23 14:58 94 H 08/25/23 11:10 36.6 C 102 H 18 111/72 91 O2 Del Method O2 Flow Rate 08/26/23 10:28 Nasal Cannula 3 08/26/23 10:20 Oxymask 3 08/26/23 10:10 Oxymask 3 08/26/23 10:00 Oxymask 3 08/26/23 09:50 Oxymask 3 08/26/23 09:43 Oxymask 3 08/26/23 07:25 08/26/23 07:22 Nasal Cannula 4 08/26/23 06:58 Nasal Cannula 4 08/26/23 02:57 Nasal Cannula 4 08/25/23 23:36 08/25/23 23:00 Nasal Cannula 3.5 08/25/23 19:40 Nasal Cannula 3.5 08/25/23 19:20 Nasal Cannula 4 08/25/23 15:15 Nasal Cannula 4 08/25/23 14:58 08/25/23 11:10 Nasal Cannula 4 Pain Intensity Right Hip: Pain Intensity: 3 Transfer of Care Handoff Completed per policy Notes Mental Status: alert / awake / arousable Patient Amnestic to Procedure: Yes Nausea / Vomiting: adequately controlled Pain: adequately controlled Airway Patency, RR, SpO2: stable & adequate BP & HR: stable & adequate Hydration State: stable & adequate Anesthetic Complications: no major complications apparent
--- NOTE | 2023-08-26 11:58 | Hospitalist Progress Note ---
Date of Service August 26, 2023 Assessment & Plan (1) Closed right hip fracture: Plan: Patient was at physical therapy when he experienced dizziness resulting in a fall. He was unable to bear weight on his right hip following this fall. -Hip x-ray 08/24/2023 revealed impacted mildly displaced transcervical right femoral fracture. -Last dose of Pradaxa in a.m. of 08/24/2023. -Patient had hemiarthroplasty of his right hip with Dr. Novak on 08/26/23. -- 1 unit of blood transfused postoperatively. -- 2-hour posttransfusion H&H check revealed hemoglobin of 9.1. Continue to monitor in AM. -Weightbearing as tolerated with posterior hip precautions. Continue using abduction pillow for the next 6 weeks while in bed. -Resume Pradaxa tomorrow, 08/27/2023 for DVT prophylaxis. (2) Atrial fibrillation: Plan: Chronic atrial fibrillation On amiodarone 200 mg twice daily, digoxin 125 mcg/day. Was on Eliquis/Xarelto due to cost was continued on Pradaxa with eventual intention to switch to Coumadin but is continued on Pradaxa. Last dose of Pradaxa was 08/23 at approximately 9 AM Last echo with EF 60%, diastolic dysfunction of indeterminate grade noted Chest x-ray: Right pleural effusion with right greater than left bibasilar consolidation. Cardiomegaly with pulmonary vascular congestion is noted. -Can resume Pradaxa 08/27/2023 for both DVT prophylaxis and chronic A-fib. (3) CHF (congestive heart failure): Plan: Diastolic congestive heart failure with preserved EF, patient has had a transudative pleural effusion in the past and bilateral right greater than left effusions with some pulmonary vascular congestion Effusion is small, and no overt pulmonary edema is present. He has baseline on 3 L of oxygen Right pleural effusion was initially parapneumonic, no fluid characteristic available for review from [place] however suspect exudative based on association with pneumonia; subsequent tap was a transudative Chronic Hypotension On midodrine 10 mg 3 times daily continued (4) Stage 4 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: Plan: Severe pulmonary emphysema Noted on x-ray PFTs 06/2023 with FEV1 1.17, FEV1/FVC ratio 44%, FEV1 62% predicted consistent with severe airflow obstruction On chronic oxygen, continued (5) Esophageal cancer: Plan: History of esophageal adenocarcinoma S/p chemotherapy, radiation, stent placement and patient recently told that he was cancer free Plan Updated patient's sons at bedside. Ordered and reviewed H&H in afternoon. Reviewed operative note. Resumed Pradaxa to start 08/27/23 AM. DVT prophylaxis: SCDs, Pradaxa on hold due to recent surgical intervention CODE STATUS: DNR/DNI Admission and Anticipated Discharge Date Admission Date: August 24, 2023 Subjective Patient seen and evaluated at bedside postoperatively with his sons. He reports that his pain is well-controlled. Denies nausea, vomiting, lightheadedness, dizziness, chest pain, shortness of breath. Patient requires 3L O2 at baseline. Saturating well at 4L currently. Patient's right leg is warm to touch, sensation in tact, able to wiggle toes. Dressing placed, clean, dry, and intact. Patient did have 1 unit of blood transfused postoperatively. H&H posttransfusion reviewed and hemoglobin has responded appropriately. Denies any complaints at this time. Physical Exam Physical Exam: General: No acute distress, nondiaphoretic, well-developed, well-nourished. Skin: The skin was without rashes, erythema, edema, or bruising. Cardiac: Irregularly irregular without murmurs gallops or rubs. Pulm: Clear to auscultation with diminished breath sounds at bases bilaterally. Prolonged phase of exhalation. No wheezing. 95% on 4 L NC. Abdominal: Positive bowel sounds x 4. Soft, nontender, without masses or organomegaly. No guarding or rebound tenderness. Neuro: A&O x3. No focal neurological deficits. Gross sensation is intact across the right leg by soft touch. Peripheral pulses are 2+. Extremities: Right leg dressing clean, dry, intact. 2+ pedal pulses and sensation intact RLE. Able to wiggle toes. Ice pack currently placed on right hip. Results & Data Results & Data Vital Signs (Past 12 Hours) Vital Signs Temp Pulse Pulse Pulse Resp BP Pulse Ox 08/26/23 11:52 36.3 C L 85 18 116/52 L 95 08/26/23 11:17 36.7 C 100 H 16 105/71 95 08/26/23 10:46 36.7 C 93 H 18 98/68 L 88 L 08/26/23 10:41 93 H 08/26/23 10:28 36.7 C 96 H 18 94/69 L 90 08/26/23 10:20 90 14 99/73 L 92 08/26/23 10:10 37.0 C 97 H 14 103/61 93 08/26/23 10:00 88 14 108/77 94 08/26/23 09:50 86 14 113/75 92 08/26/23 09:43 36.3 C L 95 H 20 137/84 94 08/26/23 07:25 90 08/26/23 07:22 36.9 C 112 H 18 123/79 93 08/26/23 06:58 08/26/23 02:57 36.8 C 92 H 18 105/74 95 O2 Del Method O2 Flow Rate 08/26/23 11:52 Nasal Cannula 4 08/26/23 11:17 Nasal Cannula 5 08/26/23 10:46 Nasal Cannula 4 08/26/23 10:41 08/26/23 10:28 Nasal Cannula 3 08/26/23 10:20 Oxymask 3 08/26/23 10:10 Oxymask 3 08/26/23 10:00 Oxymask 3 08/26/23 09:50 Oxymask 3 08/26/23 09:43 Oxymask 3 08/26/23 07:25 08/26/23 07:22 Nasal Cannula 4 08/26/23 06:58 Nasal Cannula 4 08/26/23 02:57 Nasal Cannula 4 Laboratory Results Reviewed CBC Reviewed BMP Diagnostic Findings Reviewed pelvis x-ray 08/26/23 FINDINGS: Patient is status post total hip arthroplasty with expected postsurgical changes including soft tissue swelling, and subcutaneous emphysema. No periarticular lucency or hardware fracture is seen. IMPRESSION: Expected postoperative appearance status post placement of total hip arthroplasty. PG Care Time/CCT Total # of Minutes Spent Total Time Spent with Patient: Total time spent is greater than 50% in coordination of care (as documented) at patient's floor/unit and/or counseling patient: Coding Level of Care Code 80956 SUB INP/OBS CARE 3/50MIN Diagnoses Closed right hip fracture S72.001A Atrial fibrillation I48.91 CHF (congestive heart failure) I50.9 Stage 4 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
--- NOTE | 2023-08-26 11:58 | XRay Report ---
XR pelvis 1-2V routine CLINICAL HISTORY: In PACU - Post Surgical TECHNIQUE: A single frontal view of the pelvis was obtained. Comparison: Comparison is made to hip radiograph 08/24/2023 FINDINGS: Patient is status post total hip arthroplasty with expected postsurgical changes including soft tissu e swelling, and subcutaneous emphysema. No periarticular lucency or hardware fracture is seen. IMPRESSION: Expected postoperative appearance status post placement of total hip arthroplasty. ACT 112: Negative or not required by law. Electronically signed by: Jhonatan Enciso M.D. 08/26/2023 11:57 AM
[2023-08-26 14:31] LABS: Hematocrit (blood only) 29.1 % (42.0-52.0); Hemoglobin 9.1 g/dl (14.0-18.0)
[2023-08-26] MEDS: ceFAZolin 2000MG 2,000 MG/15 ML SYR IV SCH (15:02)
[2023-08-26] MEDS: SENNA 8.6 MG TAB PO SCH (21:02)
[2023-08-27 07:12] LABS: Basophils # (auto) 0.01 K/uL (0.00-0.20); Basophils % (auto) 0.1 %; Hematocrit (blood only) 26.6 % (42.0-52.0); Hemoglobin 8.3 g/dl (14.0-18.0); Immature Granulocytes # (auto) 0.02 K/uL (0.01-0.20); Immature Granulocytes % (auto) 0.3 %; Lymphocytes # (auto) 0.54 K/uL (1.20-3.40); Lymphocytes % (auto) 7.6 %; Mean Corpuscular Hgb Conc 31.2 g/dL (32.0-36.0); Mean Platelet Volume 10.5 fL (9.4-12.4); Monocytes # (auto) 0.39 K/uL (0.11-0.59); Monocytes % (auto) 5.5 %; Neutrophils # (auto) 6.11 K/uL (1.40-6.50); Neutrophils % (auto) 86.5 %; Platelet Count 112 K/uL (130-400); RDW Standard Deviation 57.2 fL (36.4-46.3); Red Blood Count 2.77 M/uL (4.70-6.10); White Blood Count 7.07 K/ul (4.8-10.8)
[2023-08-27 07:20] LABS: BUN Creatinine Ratio 43.3 (10-20); Creatinine Clr Calc Pharmacy 113.2 ml/min; Est GFR (African American) 112.4 ml/min; Potassium 4.8 mmol/L (3.5-5.1)
--- NOTE | 2023-08-27 07:43 | Orthopedic Progress Note ---
Date of Service August 27, 2023 Assessment & Plan (1) Status post hip hemiarthroplasty: Plan: Patient is doing well this morning. I discontinued his IV Dilaudid and will try oral tramadol for pain not responding to Tylenol. Continue to ice the hip with EZ wrap. PT OT today. Weight-bear as tolerated with posterior hip precautions and a walker with max assist. Abduction pillow to be worn while he is in bed. High fall risk due to tremor, age, balance and deconditioning. Pradaxa to start today for DVT prophylaxis. Silverlon dressing to be left in place until his 2-week follow-up appointment. He is okay to shower with the Silverlon dressing in place. Case management to see patient today for discharge planning. Likely going to need a senior living facility. Follow-up with orthopedics 2 weeks after surgery. Admission and Anticipated Discharge Date Admission Date: August 24, 2023 Subjective patient seen and examined on a.m. rounds. He reports his hip is feeling better today than it was yesterday prior to surgery. Denies fevers chills chest pain and shortness of breath. He is anxious to get out of bed today and walk. For pain medication has been receiving IV Tylenol and Dilaudid. Nurse reports he has had to go on oxygen when he takes the Dilaudid. Physical Exam Physical Exam: Exam he is alert and oriented x 3. Resting comfortably in bed in no acute distress. Right hip exam: Outer dressing was removed today. Silverlon dressing is left in place. There is no active drainage through the window. Distally neurovascularly intact. Results & Data Vital Signs (Past 12 Hours) Vital Signs Temp Pulse Pulse Resp BP Pulse Ox O2 Del Method 08/27/23 07:34 Nasal Cannula 08/27/23 04:07 36.7 C 88 18 129/76 97 Nasal Cannula 08/26/23 23:49 36.7 C 83 20 103/71 95 Nasal Cannula 08/26/23 23:37 76 08/26/23 20:00 Nasal Cannula 08/26/23 19:57 36.9 C 87 20 93/59 L 96 Nasal Cannula O2 Flow Rate 08/27/23 07:34 4 08/27/23 04:07 4 08/26/23 23:49 2 08/26/23 23:37 08/26/23 20:00 4 08/26/23 19:57 2 Laboratory Results H&H this morning 8.3 and 26.6 after receiving 1 unit of packed red blood cells yesterday during surgery. Diagnostic Findings Postoperative x-rays show hardware in good position, no evidence of complication.
[2023-08-27] MEDS: HEPARIN 100 UNIT/ML 5ML FLUSH FLUSH PRN (07:49)
[2023-08-27] MEDS: traMADol HCL 50 MG TABLET PO PRN (08:26)
[2023-08-27] MEDS: dexAMETHasone 4 MG TAB PO SCH (08:27)
[2023-08-27] MEDS: DABIGATRAN ETEXILATE 75 MG CAP PO SCH (08:27)
[2023-08-27] MEDS ORDERED: DABIGATRAN ETEXILATE 150 MG PO SCH (09:00)
--- NOTE | 2023-08-27 10:21 | Hospitalist Progress Note ---
Date of Service August 27, 2023 Assessment & Plan (1) Closed right hip fracture: Plan: Patient was at physical therapy when he experienced dizziness resulting in a fall. He was unable to bear weight on his right hip following this fall. -Hip x-ray 08/24/2023 revealed impacted mildly displaced transcervical right femoral fracture. -Last dose of Pradaxa in a.m. of 08/24/2023. -Patient had hemiarthroplasty of his right hip with Dr. Novak on 08/26/23. -- 1 unit of blood transfused postoperatively. -- 2-hour posttransfusion H&H check revealed hemoglobin of 9.1. -- Hgb 8.3 in AM 08/27/23. Afternoon H&H recheck Hgb 8.2 -- Hgb remaining stable. Continue Pradaxa. - Weightbearing as tolerated with posterior hip precautions. Continue using abduction pillow for the next 6 weeks while in bed. - PT/OT recommending rehab upon discharge. (2) Atrial fibrillation: Plan: Chronic atrial fibrillation On amiodarone 200 mg twice daily, digoxin 125 mcg/day. Was on Eliquis/Xarelto due to cost was continued on Pradaxa with eventual intention to switch to Coumadin but is continued on Pradaxa. Last dose of Pradaxa was 08/23 at approximately 9 AM Last echo with EF 60%, diastolic dysfunction of indeterminate grade noted Chest x-ray: Right pleural effusion with right greater than left bibasilar consolidation. Cardiomegaly with pulmonary vascular congestion is noted. - Resumed Pradaxa 08/27/2023 for both DVT prophylaxis and chronic A-fib. (3) CHF (congestive heart failure): Plan: Diastolic congestive heart failure with preserved EF, patient has had a transudative pleural effusion in the past and bilateral right greater than left effusions with some pulmonary vascular congestion Effusion is small, and no overt pulmonary edema is present. He has baseline on 3 L of oxygen Right pleural effusion was initially parapneumonic, no fluid characteristic available for review from [place] however suspect exudative based on association with pneumonia; subsequent tap was a transudative Chronic Hypotension On midodrine 10 mg 3 times daily continued (4) Stage 4 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: Plan: Severe pulmonary emphysema Noted on x-ray PFTs 06/2023 with FEV1 1.17, FEV1/FVC ratio 44%, FEV1 62% predicted consistent with severe airflow obstruction On chronic oxygen, continued (5) Esophageal cancer: Plan: History of esophageal adenocarcinoma S/p chemotherapy, radiation, stent placement and patient recently told that he was cancer free Plan Ordered and reviewed afternoon H&H. Hemoglobin remaining stable. Continue Pradaxa. Reviewed PT note Reviewed OT note DVT prophylaxis: SCDs, Pradaxa on hold due to recent surgical intervention CODE STATUS: DNR/DNI Admission and Anticipated Discharge Date Admission Date: August 24, 2023 Subjective Patient seen and evaluated in bedside chair. He reports that he is happy to be out of bed for the first time since his surgery. However, he notes that his pain is worse since his pain regimen was adjusted/downgraded. He was about to get a dose of oxycodone after my evaluation so hopefully this will help with his pain. He denies any urinary problems, shortness of breath, chest pain, dizziness, or lightheadedness. His appetite is normal. He has not had a bowel movement yet. Patient received one unit of blood transfusion yesterday, 08/26/23. Recheck H&H at 1400 today, 08/27/23. Consider holding Pradaxa if hgb is low. Physical Exam Physical Exam: General: No acute distress, nondiaphoretic, well-developed, well-nourished. Skin: The skin was without rashes, erythema, edema, or bruising. Cardiac: Irregularly irregular without murmurs gallops or rubs. Pulm: Clear to auscultation with diminished breath sounds at bases bilaterally. Prolonged phase of exhalation. No wheezing. 97% on 4 L NC. Abdominal: Positive bowel sounds x 4. Soft, nontender, without masses or organomegaly. No guarding or rebound tenderness. Neuro: A&O x3. No focal neurological deficits. Gross sensation is intact across the right leg by soft touch. Peripheral pulses are 2+. Extremities: Right leg dressing clean, dry, intact. 2+ pedal pulses and sensation intact RLE. Able to wiggle toes. Results & Data Results & Data Vital Signs (Past 12 Hours) Vital Signs Temp Pulse Pulse Resp BP Pulse Ox O2 Del Method 08/27/23 08:40 100 H 08/27/23 08:28 93 H 08/27/23 07:44 36.4 C L 93 H 18 128/82 93 Nasal Cannula 08/27/23 07:34 Nasal Cannula 08/27/23 04:07 36.7 C 88 18 129/76 97 Nasal Cannula 08/26/23 23:49 36.7 C 83 20 103/71 95 Nasal Cannula 08/26/23 23:37 76 O2 Flow Rate 08/27/23 08:40 08/27/23 08:28 08/27/23 07:44 4 08/27/23 07:34 4 08/27/23 04:07 4 08/26/23 23:49 2 08/26/23 23:37 Laboratory Results Reviewed CBC Reviewed BMP PG Care Time/CCT Total # of Minutes Spent Total Time Spent with Patient: Total time spent is greater than 50% in coordination of care (as documented) at patient's floor/unit and/or counseling patient: Coding Level of Care Code 63639 SUB INP/OBS CARE 3/50MIN Diagnoses Closed right hip fracture S72.001A Atrial fibrillation I48.91 CHF (congestive heart failure) I50.9 Stage 4 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
[2023-08-27] MEDS: oxyCODONE HCL IR 5 MG TAB (IMMEDIATE RELEASE) PO PRN (10:32)
[2023-08-27 14:14] LABS: Hematocrit (blood only) 26.3 % (42.0-52.0); Hemoglobin 8.2 g/dl (14.0-18.0)
[2023-08-28 06:44] LABS: Hematocrit (blood only) 25.5 % (42.0-52.0); Hemoglobin 8.1 g/dl (14.0-18.0); Mean Corpuscular Hemoglobin 30.3 pg (25.0-34.0); Mean Corpuscular Hgb Conc 31.8 g/dL (32.0-36.0); Mean Corpuscular Volume 95.5 fL (80.0-100.0); Mean Platelet Volume 10.3 fL (9.4-12.4); Platelet Count 125 K/uL (130-400); RDW Coefficient of Variation 15.9 % (11.5-14.5); RDW Standard Deviation 56.3 fL (36.4-46.3); Red Blood Count 2.67 M/uL (4.70-6.10); White Blood Count 6.91 K/ul (4.8-10.8)
[2023-08-28 07:07] LABS: BUN Creatinine Ratio 49.2 (10-20); Calcium 8.2 mg/dl (8.6-10.3); Creatinine Clr Calc Pharmacy 115.1 ml/min; Est GFR (African American) 113.2 ml/min; Est GFR (Non-African American) 97.7 ml/min; Potassium 4.6 mmol/L (3.5-5.1)
[2023-08-28] MEDS: MAGNESIUM HYDROXIDE SUSP 30 ML UDC PO PRN (07:33)
--- NOTE | 2023-08-28 09:26 | Hospitalist Progress Note ---
<Statement entered by Myriam Dugan MD - 08/28/23 18:04> I personally reviewed chart including studies labs vital signs notes, noted he had episode of confusion this morning. Urinalysis looks negative for UTI. I note that he did have 50 mg of tramadol followed by 10 mg of oxycodone around 9 AM which likely accounts for the confusion episode. Will decrease oxycodone to 5 mg. all previous doses given this admission were 5 mg doses. Otherwise agree with documentation below by Myriam lawler PA-C Date of Service August 28, 2023 Assessment & Plan (1) Closed right hip fracture: Plan: Patient was at physical therapy when he experienced dizziness resulting in a fall. He was unable to bear weight on his right hip following this fall. -Hip x-ray 08/24/2023 revealed impacted mildly displaced transcervical right femoral fracture. -Last dose of Pradaxa in a.m. of 08/24/2023. -Patient had hemiarthroplasty of his right hip with Dr. Novak on 08/26/23. -- Acute blood loss anemia requiring 1 unit of blood transfused postoperatively. -- 2-hour posttransfusion H&H check revealed hemoglobin of 9.1. -- Hgb 8.3 in AM 08/27/23. Afternoon H&H recheck Hgb 8.2 -- Hgb remaining stable. Continue Pradaxa. - Weightbearing as tolerated with posterior hip precautions. Continue using abduction pillow for the next 6 weeks while in bed. - PT/OT recommending rehab upon discharge. - Patient and son report confusion / delirium in AM on 08/28/23. This had resolved and patient was fully oriented at time of my evaluation. -- UA ordered, pending. (2) Atrial fibrillation: Plan: Chronic atrial fibrillation On amiodarone 200 mg twice daily, digoxin 125 mcg/day. Was on Eliquis/Xarelto due to cost was continued on Pradaxa with eventual intention to switch to Coumadin but is continued on Pradaxa. Last dose of Pradaxa was 08/23 at approximately 9 AM Last echo with EF 60%, diastolic dysfunction of indeterminate grade noted Chest x-ray: Right pleural effusion with right greater than left bibasilar consolidation. Cardiomegaly with pulmonary vascular congestion is noted. - Resumed Pradaxa 08/27/2023 for both DVT prophylaxis and chronic A-fib. (3) CHF (congestive heart failure): Plan: Diastolic congestive heart failure with preserved EF, patient has had a transudative pleural effusion in the past and bilateral right greater than left effusions with some pulmonary vascular congestion Effusion is small, and no overt pulmonary edema is present. He has baseline on 3 L of oxygen. Right pleural effusion was initially parapneumonic, no fluid characteristic available for review from [place] however suspect exudative based on association with pneumonia; subsequent tap was a transudative Chronic Hypotension On midodrine 10 mg 3 times daily continued (4) Stage 4 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: Plan: Severe pulmonary emphysema Noted on x-ray PFTs 06/2023 with FEV1 1.17, FEV1/FVC ratio 44%, FEV1 62% predicted consistent with severe airflow obstruction On chronic oxygen due to Chronic hypoxic respiratory failure, continued (5) Esophageal cancer: Plan: History of esophageal adenocarcinoma S/p chemotherapy, radiation, stent placement and patient recently told that he was cancer free Plan Updated son and answered disposition questions at bedside. Monitored vitals and titrated down supplemental O2. Ordered UA. Discussed discharge planning with case management. Reviewed PT and OT notes from today. DVT prophylaxis: SCDs, Pradaxa on hold due to recent surgical intervention CODE STATUS: DNR/DNI Admission and Anticipated Discharge Date Admission Date: August 24, 2023 Subjective Patient seen and evaluated at bedside with son. He reports that he experienced some confusion early this morning. He is fully oriented now, but will check UA to eval for infection. Son also reports that the patient takes Boost as a dietary supplement daily at 1000 and 1500. Communication order was placed to give Boost supplementation UD. Patient and his son had questions about rehab on discharge in regards to insurance. I informed the ed case manager who plans to speak with them and address their questions. Patient reports that his pain is well controlled. He worked with PT and OT today and reports that he fatigues easily. He denies any complaints at this time. Physical Exam Physical Exam: General: No acute distress, nondiaphoretic, well-developed, well-nourished. Skin: The skin was without rashes, erythema, edema, or bruising. Cardiac: Irregularly irregular without murmurs gallops or rubs. Pulm: Clear to auscultation with diminished breath sounds at bases bilaterally. Prolonged phase of exhalation. No wheezing. 93% on 1 L NC. Abdominal: Positive bowel sounds x 4. Soft, nontender, without masses or organomegaly. No guarding or rebound tenderness. Neuro: A&O x3. No focal neurological deficits. Extremities: Right leg dressing clean, dry, intact. 2+ pedal pulses and sensation intact RLE. Able to wiggle toes. Results & Data Results & Data Vital Signs (Past 12 Hours) Vital Signs Temp Pulse Pulse Pulse Resp BP Pulse Ox 08/28/23 07:34 36.5 C 85 20 136/84 98 08/28/23 07:20 08/28/23 07:19 84 08/28/23 07:00 72 08/28/23 02:24 36.4 C L 83 18 124/87 94 08/27/23 23:00 36.8 C 94 H 20 129/78 93 08/27/23 21:40 O2 Del Method O2 Flow Rate 08/28/23 07:34 Nasal Cannula 4 08/28/23 07:20 Nasal Cannula 3 08/28/23 07:19 08/28/23 07:00 08/28/23 02:24 Nasal Cannula 4 08/27/23 23:00 Nasal Cannula 4 08/27/23 21:40 Nasal Cannula 4 Laboratory Results Reviewed CBC Reviewed BMP PG Care Time/CCT Total # of Minutes Spent Total Time Spent with Patient: Total time spent is greater than 50% in coordination of care (as documented) at patient's floor/unit and/or counseling patient: Coding Level of Care Code 97668 SUB INP/OBS CARE 3/50MIN Diagnoses Closed right hip fracture S72.001A Atrial fibrillation I48.91 CHF (congestive heart failure) I50.9 Stage 4 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
--- NOTE | 2023-08-28 10:19 | Orthopedic Progress Note ---
Date of Service August 28, 2023 Assessment & Plan (1) Status post hip hemiarthroplasty: Plan: Patient is doing well this morning. Pain control with po Tramadol and Tylenol. Continue to ice the hip with EZ wrap. PT/OT Weight-bear as tolerated with posterior hip precautions and a walker with max assist. Abduction pillow to be worn while he is in bed. High fall risk due to tremor, age, balance and deconditioning. Pradaxa to start today for DVT prophylaxis. Silverlon dressing to be left in place until his 2-week follow-up appointment. He is okay to shower with the Silverlon dressing in place. Case management to see patient for discharge planning. Likely going to need a custodial facility. Follow-up with orthopedics 2 weeks after surgery. With questions contact our clinic at [phone] Admission and Anticipated Discharge Date Admission Date: August 24, 2023 Subjective This 77-year-old male is day 2 status post right hip hemiarthroplasty. He is currently working with physical therapy. He was able to easily transition from a seated to a standing position with the assistance of his walker. He states that his right lower extremity feels very weak. He also states that while standing he feels some slight dizziness. Patient states that overall his pain is well-controlled with p.o. pain medication he is receiving. He denies chest pain, shortness of breath, fever, chills, sweats or numbness or tingling in his right lower extremity that is out of the ordinary. Review of Systems Review of Systems: All systems reviewed & are unremarkable except as noted in Subjective Physical Exam 2 Physical Exam: Right lower extremity: Silverlon is clean dry and intact and left in place. Patient is able to perform active straight leg raise test. He is able to actively dorsi and plantarflex his foot. He has no pain with logroll testing. She tolerates light passive hip flexion beyond 80 degrees and only feels a slight tugging sensation with light passive internal and external hip rotation. Results & Data Vital Signs (Past 12 Hours) Vital Signs Temp Pulse Pulse Pulse Resp BP Pulse Ox 08/28/23 07:34 36.5 C 85 20 136/84 98 08/28/23 07:20 08/28/23 07:19 84 08/28/23 07:00 72 08/28/23 02:24 36.4 C L 83 18 124/87 94 08/27/23 23:00 36.8 C 94 H 20 129/78 93 O2 Del Method O2 Flow Rate 08/28/23 07:34 Nasal Cannula 4 08/28/23 07:20 Nasal Cannula 3 08/28/23 07:19 08/28/23 07:00 08/28/23 02:24 Nasal Cannula 4 08/27/23 23:00 Nasal Cannula 4 Diagnostic Findings Laboratory Results WBC 6.91 K/ul (4.8-10.8) 08/28/23 06:23 RBC 2.67 M/uL (4.70-6.10) L 08/28/23 06:23 Hgb 8.1 g/dl (14.0-18.0) L 08/28/23 06:23 Hct 25.5 % (42.0-52.0) L 08/28/23 06:23 MCV 95.5 fL (80.0-100.0) 08/28/23 06:23 MCH 30.3 pg (25.0-34.0) 08/28/23 06:23 MCHC 31.8 g/dL (32.0-36.0) L 08/28/23 06:23 RDW Std Deviation 56.3 fL (36.4-46.3) H 08/28/23 06:23 RDW Coeff of Lenore 15.9 % (11.5-14.5) H 08/28/23 06:23 Plt Count 125 K/uL (130-400) L 08/28/23 06:23 MPV 10.3 fL (9.4-12.4) 08/28/23 06:23 Immature Gran % (Auto) 0.3 % 08/27/23 06:13 Neut % (Auto) 86.5 % 08/27/23 06:13 Lymph % (Auto) 7.6 % 08/27/23 06:13 Maverick % (Auto) 5.5 % 08/27/23 06:13 Eos % (Auto) 0.0 % 08/27/23 06:13 Baso % (Auto) 0.1 % 08/27/23 06:13 Neut # (Auto) 6.11 K/uL (1.40-6.50) 08/27/23 06:13 Lymph # (Auto) 0.54 K/uL (1.20-3.40) L 08/27/23 06:13 Maverick # (Auto) 0.39 K/uL (0.11-0.59) 08/27/23 06:13 Eos # (Auto) 0.00 K/uL (0.00-0.50) 08/27/23 06:13 Baso # (Auto) 0.01 K/uL (0.00-0.20) 08/27/23 06:13 Immature Gran # (Auto) 0.02 K/uL (0.01-0.20) 08/27/23 06:13 Sodium 139 mmol/L (136-145) 08/28/23 06:23 Potassium 4.6 mmol/L (3.5-5.1) 08/28/23 06:23 Chloride 105 mmol/L (98-107) 08/28/23 06:23 Carbon Dioxide 31 mmol/L (21-32) 08/28/23 06:23 Anion Gap 3 (3-11) 08/28/23 06:23 BUN 29 mg/dl (6-23) H 08/28/23 06:23 Creatinine 0.59 mg/dl (0.6-1.4) L 08/28/23 06:23 Est Cr Clr Drug Dosing 115.1 ml/min 08/28/23 06:23 Est GFR ( Amer) 113.2 ml/min 08/28/23 06:23 Est GFR (Non-Af Amer) 97.7 ml/min 08/28/23 06:23 BUN/Creatinine Ratio 49.2 (10-20) H 08/28/23 06:23 Glucose 97 mg/dl (70-99(Fasting)) 08/28/23 06:23 Calcium 8.2 mg/dl (8.6-10.3) L 08/28/23 06:23 Blood Type AB Positive 08/25/23 11:55 Blood Type Recheck AB Positive 08/25/23 05:28 Antibody Screen NEGATIVE 08/25/23 11:55 Crossmatch See Detail 08/25/23 11:55 Impressions Chest X-Ray 08/24/23 13:29 XR chest 1V portable HISTORY: 77 years-old Male screening COMPARISON: PET CT 07/24/2023, chest radiograph 06/15/2023 TECHNIQUE: AP view of the chest FINDINGS: Cardiac silhouette is enlarged. Severe pulmonary emphysema with chronic interstitial coarsening. Pulmonary vascular congestion. Small right pleural effusion with right greater than left bibasilar densities redemonstrated. Bones appear grossly intact. Right IJ Sorxdn-e-Pnea catheter distal tip is noted in the expected location of the right brachiocephalic vein. IMPRESSION: 1. Right pleural effusion redemonstrated along with right greater than left bibasilar consolidation. 2. Emphysema. 3. Cardiomegaly with pulmonary vascular congestion. ACT 112: Negative or not required by law. The above report was generated using voice recognition software. It may contain grammatical, syntax or spelling errors. Electronically signed by: Dimas Wong M.D. 08/24/2023 2:29 PM Pelvis X-Ray 08/26/23 09:55 XR pelvis 1-2V routine CLINICAL HISTORY: In PACU - Post Surgical TECHNIQUE: A single frontal view of the pelvis was obtained. Comparison: Comparison is made to hip radiograph 08/24/2023 FINDINGS: Patient is status post total hip arthroplasty with expected postsurgical changes including soft tissue swelling, and subcutaneous emphysema. No periarticular lucency or hardware fracture is seen. IMPRESSION: Expected postoperative appearance status post placement of total hip arthroplasty. ACT 112: Negative or not required by law. Electronically signed by: Jhonatan Enciso M.D. 08/26/2023 11:57 AM
[2023-08-28 17:14] LABS: Appearance Urine Cloudy (Clear); Bacteria Urine Automated None Seen (None Seen); Bilirubin Urine Negative (Negative); Blood Urine 3+ (Negative); Cast Urine Automated 0-2 /lpf (0-2); Color Urine Yellow; Epithelial Cell Urine Auto 0-2 /hpf (0-2); Glucose Urine UA Negative (Negative); Ketones Urine Negative (Negative); Leukocyte Esterase Urine 1+ (Negative); Nitrite Urine Negative (Negative); Protein Urine Trace (Negative); RBC Urine Automated >20 /hpf (0-2); Urobilinogen Urine Negative (Negative); WBC Urine Automated 0-5 /hpf (0-5)
[2023-08-28] MEDS: oxyCODONE HCL IR 5 MG TAB (IMMEDIATE RELEASE) PO PRN (19:35)
[2023-08-29 06:59] LABS: Hematocrit (blood only) 28.4 % (42.0-52.0); Hemoglobin 8.8 g/dl (14.0-18.0); Mean Corpuscular Volume 96.9 fL (80.0-100.0); Mean Platelet Volume 10.7 fL (9.4-12.4); Platelet Count 145 K/uL (130-400); RDW Standard Deviation 57.3 fL (36.4-46.3); Red Blood Count 2.93 M/uL (4.70-6.10); White Blood Count 6.22 K/ul (4.8-10.8)
[2023-08-29 07:43] LABS: BUN Creatinine Ratio 53.2 (10-20); Calcium 8.2 mg/dl (8.6-10.3); Creatinine Clr Calc Pharmacy 108.1 ml/min; Est GFR (African American) 110.9 ml/min; Est GFR (Non-African American) 95.7 ml/min; Potassium 3.9 mmol/L (3.5-5.1)
[2023-08-29 08:00] VITALS: RESP 16
--- NOTE | 2023-08-29 10:14 | Orthopedic Progress Note ---
Date of Service August 29, 2023 Assessment & Plan (1) Status post hip hemiarthroplasty: Plan: POD 3 - right hip hemiarthroplasty by Dr. Novak. Pain control with po Tramadol and Tylenol. Continue to ice the hip with EZ wrap. PT/OT Weight-bear as tolerated with posterior hip precautions and a walker with max assist. Abduction pillow to be worn while he is in bed. High fall risk due to tremor, age, balance and deconditioning. Pradaxa restarted for DVT prophylaxis. Silverlon dressing to be left in place until his 2-week follow-up appointment. New Silverlon applied today. He is okay to shower with the Silverlon dressing in place. Case management to see patient for discharge planning. Likely going to need a retirement facility or [facility] today. Follow-up with orthopedics 2 weeks after surgery as scheduled. With questions contact our clinic at [phone]. Admission and Anticipated Discharge Date Admission Date: August 24, 2023 Subjective Patient sitting up in chair, doing well, mild pain in right hip. States that he has been out of bed with therapy and nursing. Using a walker. Possibly leaving today pending placement. Tolerating a regular diet. No post op nausea, vomiting. Physical Exam Musculoskeletal: Right hip: Incision clean, dry and intact. Zip line in place. Proximal end of silverlon curled up and no longer covering incision. New Silverlon placed over incision today. No active drainage from hip incision. + ecchymosis right hip/thigh. No underlying hematoma or seroma. right buttock mildly tender with palpation. No distal edema. Full knee ROM. + ecchymosis right lateral knee. No knee effusion. No calf discomfort with palpation. Full ankle ROM and normal strength. Pulses 1+ right foot. Results & Data Vital Signs (Past 12 Hours) Vital Signs Temp Pulse Pulse Resp BP Pulse Ox O2 Del Method 08/29/23 09:51 88 08/29/23 07:59 36.7 C 91 H 16 120/77 97 Nasal Cannula 08/29/23 07:29 93 H 08/29/23 04:09 36.7 C 91 H 20 126/76 96 Nasal Cannula 08/28/23 23:33 36.6 C 92 H 20 112/69 96 Nasal Cannula O2 Flow Rate 08/29/23 09:51 08/29/23 07:59 3 08/29/23 07:29 08/29/23 04:09 2 08/28/23 23:33 2 Laboratory Results 08/29/23 08/28/23 08/25/23 Range/Units 05:49 Unknown 11:55 WBC 6.22 (4.8-10.8) K/ul RBC 2.93 L (4.70-6.10) M/uL Hgb 8.8 L (14.0-18.0) g/dl Hct 28.4 L (42.0-52.0) % MCV 96.9 (80.0-100.0) fL MCH 30.0 (25.0-34.0) pg MCHC 31.0 L (32.0-36.0) g/dL RDW Std Deviation 57.3 H (36.4-46.3) fL RDW Coeff of Lenore 16.0 H (11.5-14.5) % Plt Count 145 (130-400) K/uL MPV 10.7 (9.4-12.4) fL Sodium 139 (136-145) mmol/L Potassium 3.9 (3.5-5.1) mmol/L Chloride 102 (98-107) mmol/L Carbon Dioxide 35 H (21-32) mmol/L Anion Gap 2 L (3-11) BUN 33 H (6-23) mg/dl Creatinine 0.62 (0.6-1.4) mg/dl Est Cr Clr Drug Dosing 108.1 ml/min Est GFR ( Amer) 110.9 ml/min Est GFR (Non-Af Amer) 95.7 ml/min BUN/Creatinine Ratio 53.2 H (10-20) Glucose 68 L (70-99(Fasting)) mg/dl Calcium 8.2 L (8.6-10.3) mg/dl Magnesium 2.0 (1.7-2.4) mg/dl Urine Color Yellow Urine Appearance Cloudy A (Clear) Urine pH 5.0 (4.5-7.5) Ur Specific [place] 1.020 (1.000-1.030) Urine Protein Trace H (Negative) Urine Glucose (UA) Negative (Negative) Urine Ketones Negative (Negative) Urine Blood 3+ H (Negative) Urine Nitrite Negative (Negative) Urine Bilirubin Negative (Negative) Urine Urobilinogen Negative (Negative) Ur Leukocyte Esterase 1+ H (Negative) Urine WBC (Auto) 0-5 (0-5) /hpf Urine RBC (Auto) >20 H (0-2) /hpf U Hyaline Cast (Auto) 0-2 (0-2) /lpf U Epithel Cells (Auto) 0-2 (0-2) /hpf Urine Bacteria (Auto) None Seen (None Seen) Blood Type AB Positive Antibody Screen NEGATIVE Crossmatch See Detail
--- NOTE | 2023-08-29 12:03 | Discharge Summary ---
Discharge Summary Date of Service August 29, 2023 Principal Dx & Hospital Course #1 = Principal Diagnosis (1) Closed right hip fracture: Patient was at physical therapy when he experienced dizziness resulting in a fall. He was unable to bear weight on his right hip following this fall. -Hip x-ray 08/24/2023 revealed impacted mildly displaced transcervical right femoral fracture. -Last dose of Pradaxa in a.m. of 08/24/2023. -Patient had hemiarthroplasty of his right hip with Dr. Novak on 08/26/23. -- Acute blood loss anemia requiring 1 unit of blood transfused postoperatively. -- 2-hour posttransfusion H&H check revealed hemoglobin of 9.1. -- Hgb 8.3 in AM 08/27/23. Afternoon H&H recheck Hgb 8.2 -- Hgb remaining stable. Continue Pradaxa. - Weightbearing as tolerated with posterior hip precautions. Continue using abduction pillow for the next 6 weeks while in bed. - PT/OT recommend rehab. - Patient and son report confusion / delirium in AM on 08/28/23. This had resolved and patient was fully oriented at time of my evaluation. -- UA negative. Most likely acute encephalopathy due to medications, resolved. (2) Atrial fibrillation: Chronic atrial fibrillation On amiodarone 200 mg twice daily, digoxin 125 mcg/day. Was on Eliquis/Xarelto due to cost was continued on Pradaxa with eventual intention to switch to Coumadin but is continued on Pradaxa. Last dose of Pradaxa was 08/23 at approximately 9 AM Last echo with EF 60%, diastolic dysfunction of indeterminate grade noted Chest x-ray: Right pleural effusion with right greater than left bibasilar consolidation. Cardiomegaly with pulmonary vascular congestion is noted. - Resumed Pradaxa 08/27/2023 for both DVT prophylaxis and chronic A-fib. (3) CHF (congestive heart failure): Diastolic congestive heart failure with preserved EF, patient has had a transudative pleural effusion in the past and bilateral right greater than left effusions with some pulmonary vascular congestion Effusion is small, and no overt pulmonary edema is present. He has baseline on 3 L of oxygen. Right pleural effusion was initially parapneumonic, no fluid characteristic available for review from MI however suspect exudative based on association with pneumonia; subsequent tap was a transudative Chronic Hypotension On midodrine 10 mg 3 times daily continued (4) Stage 4 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: Severe pulmonary emphysema Noted on x-ray PFTs 06/2023 with FEV1 1.17, FEV1/FVC ratio 44%, FEV1 62% predicted consistent with severe airflow obstruction On chronic oxygen due to Chronic hypoxic respiratory failure, continued (5) Esophageal cancer: History of esophageal adenocarcinoma S/p chemotherapy, radiation, stent placement and patient recently told that he was cancer free Plan CODE STATUS: DNR/DNI Notes For Next Care Provider Patient presented with closed right hip fracture after falling at physical therapy due to dizziness. He had hemiarthroplasty of his right hip with Dr. Novak on 08/26/2023. He had 1 unit of blood transfused postoperatively, and hemoglobin has remained stable since then. Pradaxa resumed 08/27/2023 for c hronic A-fib and DVT prophylaxis. Patient discharged to [facility] for rehab. Admission HPI Per Admitting Provider Peter is a 77-year-old male with a past medical history of bladder cancer s/p TURBT, Esophageal adenocarcinoma s/p chemotherapy with paclitaxel/carboplatin/radiation completed 04/23/2023/stent placement 04/2023, COPD, A-fib, tobacco use, hypertension, hyperlipidemia, PAD who was recently told he was cancer free and was at physical therapy when he had some dizziness which caused him to fall. He was unable to bear weight at his right hip following this fall and was found to have a hip fracture. Ports using physical therapy exercises and rotating his neck when he had an episode of spinning and lightheadedness which caused him to fall with immediate pain in his right hip and inability to bear weight. Denies chest pain or chest pressure. He reports that he is on oxygen at baseline and has easy fatigue, but has had no change in his usual dyspnea. He has not had syncope and has not hit his head. Denies nausea/vomiting/diarrhea/constipation. No recent fever/chills. He is on Pradaxa and bruises easily, denies recent GI bleeding. Former tobacco use in remission, no recent alcohol use. He is on pradaxa for afib. Takes pradaxa this morning ~7am. No history of stents outside of the esophageal stent which was removed takes aspirin for primary prevention Esophageal cancer free. Had chemoradiation. Stent was removed a few weeks ago. Otherwise was feeling well. No chest pain or chest pressure Had a pleural effusion which was drained with Dr. Negrete 3.15, transudative at the time Had been on lasix in the last year, but not rcently and was on an as needed basis No kidney problems DNR/DNI Admission Exam Per Admitting Provider General: A&Ox3. NAD. Cooperative. HEENT: Atraumatic, normocephalic. Vision/hearing intact Pulm: No expiratory wheezing. Diminished in the right lower lobes without rales/crackles. Symmetrical chest rise. No increased work of breathing. No respiratory distress. Cardiac: irir, soft sm. Radial pulses intact and symmetrical. Abdominal: Nontender, nondistended, soft. BS present. ext: Right hip tender to palpation. Ankle dorsiflexion/plantarflexion 5/5 bilaterally and intact sensation of soft touch in the feet bilaterally. PT pulse is intact bilaterally, cap refill in the feet is intact bilaterally Discharge Exam General: No acute distress, nondiaphoretic, well-developed, well-nourished. Skin: The skin was without rashes, erythema, edema, or bruising. Cardiac: Irregularly irregular without murmurs gallops or rubs. Pulm: Clear to auscultation with diminished breath sounds at bases bilaterally. Prolonged phase of exhalation. No wheezing. 93% on 1 L NC. Abdominal: Positive bowel sounds x 4. Soft, nontender, without masses or organomegaly. No guarding or rebound tenderness. Neuro: A&O x3. No focal neurological deficits. Extremities: Right leg dressing clean, dry, intact. 2+ pedal pulses and sensation intact RLE. Able to wiggle toes. Updated Medication List Medication Instructions Recorded Confirmed Type aspirin 81 mg tablet,delayed 81 mg PO DAILY 05/24/23 08/24/23 History release (Adult Low Dose Aspirin) atorvastatin 40 mg tablet 40 mg PO QPM 05/24/23 08/24/23 History digoxin 125 mcg (0.125 mg) tablet 125 mcg PO DAILY 05/24/23 08/24/23 History (Digox) ferrous sulfate 325 mg (65 mg 325 mg PO DAILY 05/24/23 08/24/23 History iron) tablet fluticasone propionate 50 1 spray intranasal BID 05/24/23 08/24/23 History mcg/actuation nasal spray,suspension (Allergy Relief (fluticasone)) midodrine 10 mg tablet 10 mg PO TID 05/24/23 08/24/23 History montelukast 10 mg tablet 10 mg PO DAILY 05/24/23 08/24/23 History multivitamin 1 tab PO DAILY 05/24/23 08/24/23 History olanzapine 5 mg tablet 5 mg PO QPM 05/24/23 08/24/23 History pantoprazole 40 mg tablet,delayed 40 mg PO BID 05/24/23 08/24/23 History release amiodarone 200 mg tablet 200 mg PO BID 06/01/23 08/24/23 History ascorbate calcium (vitamin C) 500 500 mg PO QAM 06/01/23 08/24/23 History mg tablet loratadine 10 mg tablet 10 mg PO QAM 06/01/23 08/24/23 History tamsulosin 0.4 mg capsule 0.4 mg PO DAILY 06/01/23 08/24/23 History acetaminophen 325 mg tablet 650 mg PO QID PRN Pain 06/05/23 08/24/23 History allopurinol 100 mg tablet 100 mg PO DAILY 06/05/23 08/24/23 History docusate sodium 100 mg tablet 100 mg PO BID 06/05/23 08/24/23 History sodium chloride 0.65 % nasal spray 1 spray intranasal BID PRN dryness 06/05/23 08/24/23 History aerosol (Saline Mist) menthol 0.44 %-zinc oxide 20.6 % 1 applic topical QID PRN Rash 06/13/23 08/24/23 History topical ointment (Calmoseptine) albuterol sulfate 90 mcg/actuation 2 puff inhalation Q6H PRN 07/16/23 08/24/23 Rx aerosol inhaler shortness of breath or wheezing #3 Inhalers fluticasone fur. 200 mcg-umeclid 1 inh inhalation DAILY #180 ea 07/16/23 08/24/23 Rx 62.5 mcg-vilant 25 mcg inhalat.powder (Trelegy Ellipta) dabigatran etexilate 150 mg capsule 150 mg PO BID 08/24/23 08/24/23 History duloxetine 30 mg capsule,delayed 30 mg PO DAILY 08/24/23 08/24/23 History release mirtazapine 15 mg tablet 15 mg PO HS 08/24/23 08/24/23 History oxycodone 5 mg tablet 5 mg PO Q4H PRN Pain 08/24/23 08/24/23 History tramadol 50 mg tablet 50 mg PO Q4H PRN pain #30 tabs 08/29/23 Rx Hospital Stay Data Consultations 08/24/23 14:10 ED Decision to Admit Stat 08/24/23 20:25 Consult Orthopedic Surgery Routine Procedures Performed Operation Date: 08/26/23 10:00 Actual Procedures p Bipolar Hip Prosthesis(Right) - Rafi Nvoak MD Pending Results Patient Have Any Pending Studies at Discharge: No Discharge Instructions Given to Patient (Per Discharging Provider) Mr. Matthews, Johnson were admitted to the hospital due to a right hip fracture after falling while at physical therapy. You had a partial right hip replacement (hemiarthroplasty) with Dr. Novak on 08/26/2023. You had 1 unit of blood transfused postoperatively, and your hemoglobin has remained stable since then. Your Pradaxa (blood thinner) was resumed on 08/27/2023 for both your A-fib treatment and DVT (blood clot) prophylaxis. Upon discharge from the hospital: * Take Tylenol 650 mg every 4 hours as needed for pain. Use this as your first- line pain medication. * Take tramadol 50 mg every 4 hours as needed for breakthrough pain. * Weight-bear as tolerated with posterior hip precautions. * Continue using abduction pillow for the next 6 weeks while in bed. * Follow-up with orthopedics 2 weeks after surgery. Your postop appointment is scheduled for 09/12/2023 at 2:00 PM. * Follow orthopedics recommendations as noted below. Please return to the hospital if you experience any of the following: Hip pain that gets worse, pain or swelling in your calf or leg not near your incision, pain or redness in your calf, fever of 100.4 or higher, shaking chills, swelling or redness at the incision site that gets worse, fluid or bad smell from the incision site, shortness of breath, chest pain, lightheadedness, dizziness, or passing out. It was a pleasure taking care of you while you were in the hospital, Myriam Park PA-C Total Time Total Time Spent Total Time Spent (In Minutes): Greater than 30 minutes spent completing this discharge process including direct patient care, medication reconciliation, documentation, review of labs and images, and coordination of care. Coding Level of Care Code 08184 INP/OBS DISCH >30 MIN Diagnoses Closed right hip fracture S72.001A Atrial fibrillation I48.91 CHF (congestive heart failure) I50.9 Stage 4 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
[2023-08-29 12:22] VITALS: BP 102/68; PULSE 101; TEMP 97.7; O2SAT 99
== END 2023-08-29 13:22 | DRG 521 ==
LOC: ED 12:11 → SUATTDRO 17:52 → 2N 17:52

== ENCOUNTER 2024-05-26 08:58 | Inpatient (IN) ==
--- NOTE | 2024-05-26 09:20 | ED Triage Note ---
Date of Service May 26, 2024 Provider in Triage Author: Kaci Multani History of Present Illness This patient was briefly evaluated while in triage. An abbreviated physical exam was performed. This patient is a 78-year-old Male with PMHx of metastatic esophageal cancer. who presents to the ED for evaluation of . He had his infusion a little over a week ago. For the past 5 days he has had decreased appetite, vomiting, and diarrhea. He fell 3 days ago trying to get into his wheelchair and injured his right hip which he previously had replaced. Physical Exam GENERAL: Chronically unwell appearing, cachectic. Sitting upright in wheelchair in triage. HEENT: Pupils equal. No obvious scleral icterus. HEART: Regular rate and rhythm. LUNGS: Clear to auscultation. ABDOMEN: Soft, nontender to palpation. NEURO: Alert and oriented. No obvious neurological deficits on quick neuro exam. MUSCULOSKELETAL: Tenderness in the right lateral hip. Initial orders for labs and / or imaging were placed and patient was placed in the waiting area until a bed is available. Please see further documentation for the full ED course.
[2024-05-26 10:57] LABS: Basophils # (auto) 0.03 K/uL (0.00-0.20); Basophils % (auto) 0.5 %; Eosinophils # (auto) 0.01 K/uL (0.00-0.50); Eosinophils % (auto) 0.2 %; Hematocrit (blood only) 27.6 % (42.0-52.0); Hemoglobin 9.1 g/dl (14.0-18.0); Immature Granulocytes # (auto) 0.03 K/uL (0.01-0.20); Immature Granulocytes % (auto) 0.5 %; Lymphocytes % (auto) 13.2 %; Mean Corpuscular Hemoglobin 33.2 pg (25.0-34.0); Mean Corpuscular Volume 100.7 fL (80.0-100.0); Mean Platelet Volume 9.6 fL (9.4-12.4); Monocytes # (auto) 0.57 K/uL (0.11-0.59); Monocytes % (auto) 9.4 %; Neutrophils % (auto) 76.2 %; Platelet Count 113 K/uL (130-400); RDW Coefficient of Variation 16.7 % (11.5-14.5); RDW Standard Deviation 61.4 fL (36.4-46.3); Red Blood Count 2.74 M/uL (4.70-6.10); White Blood Count 6.04 K/ul (4.8-10.8)
--- OUTSIDE RECORDS SUMMARY | 2024-05-26 10:58 | External Medical Summary | Summary of Care ---
Author Name Unknown Organization [facility] Address [address] [place] [address] Phone [phone] Care Team Providers Care Retail Performance Specialist Name Role Phone Ashleigh Toribio MD Primary Care Provider [phone] Reason for Visit * Reason Onset Date Comments Information 05/07/2024 Encounter Details Date Type Department Care Team (Late st Contact Info) Description 05/07/2024 Telephone Gastroenterology, [address] [id number] Ang Orourke MD [address] [place] [id number] Information Allergies Active Allergy Reactions Criticality Noted Date Comments Bupropion 06/04/2023 insomnia Varenicline 06/04/2023 insomnia documented as of this encounter (statuses as of 05/20/2024) Medications Aspirin 81 MG Oral Tablet Delayed Release Take 1 Tablet by mouth in the morning. Active Docusate Sodium 100 MG Oral Capsule (Colace) Take 1 Capsule by mouth in the morning. Active Ferrous Sulfate 325 (65 Fe) MG Oral Tablet (Feosol) Take 1 Tablet by mouth 2 times a day with morning and evening meals. Active Fluticasone Propionate 50 MCG/ACT Nasal Suspension (Flonase Allergy Relief) Administer 1 Herrick into nostril in the morning. Active Loratadine 10 MG Oral Capsule Take 1 Capsule by mouth in the morning. Active Dabigatran Etexilate Mesylate 150 MG Oral Capsule (Pradaxa) Take 1 Capsule by mouth in the morning and 1 Capsule before bedtime. 60 Capsule 11 07/11/19 24 Active Digoxin 125 MCG Oral Tablet (Lanoxin)Indications :Chronic atrial fibrillation (HCC) Take 1 Tablet by mouth every evening. 31 Tablet 5 07/26/19 24 Active Atorvastatin Calcium 40 MG Oral Tablet (Lipitor)Indications :PVD (peripheral vascular disease) (HCC) Take 1 Tablet by mouth in the morning. 90 Tablet 3 07/27/19 24 Active Ascorbic Acid 500 MG Oral Tablet Take 1 Tablet by mouth in the morning. 08/30/19 24 Active oxyCODONE HCl 5 MG Oral Tablet (Oxy IR)Indications:Close d fracture of neck of right femur with routine healing, subsequent encounter,S/P hip hemiarthroplasty Take 1 Tablet by mouth every 6 hours as needed for Pain, Moderate or Pain, Severe. Ongoing therapy 30 Tablet 09/18/19 24 Active Acetaminophen 325 MG Oral Tablet (Tylenol) Take 2 Tablets by mouth 3 times a day. Active DULoxetine HCl 20 MG Oral Capsule Delayed Release Particles (Cymbalta) Take 1 Capsule by mouth in the morning. Do not cut, crush or chew. 90 Capsule 3 11/07/19 24 Active Amiodarone HCl 200 MG Oral Tablet (Cordarone)Indicatio ns:Chronic atrial fibrillation (HCC) Take 1 Tablet by mouth daily. 90 Tablet 3 11/08/19 24 Active Montelukast Sodium 10 MG Oral Tablet (Singulair)Indicatio ns:COPD, severity to be determined (HCC) Take 1 Tablet by mouth at bedtime. 30 Tablet 5 12/05/19 24 Active Albuterol Sulfate HFA 108 (90 Base) MCG/ACT Inhalation Aerosol SolutionIndications: COPD, severity to be determined (HCC) Inhale 2 Puffs by mouth every 6 hours as needed for Wheezing or Shortness of Breath. 18 g 5 02/06/20 24 Active Trelegy Ellipta 200-62.5-25 MCG/ACT Aerosol Powder Breath ActivatedIndications :COPD, severity to be determined (HCC) Inhale 1 Puff by mouth in the morning. 60 Blister Dosing Unit 5 02/06/20 24 Active ALPRAZolam 0.25 MG Oral Tablet (xaNAX)Indications:O ther insomnia Take 1 Tablet by mouth at bedtime as needed for Anxiety or Sleep. 20 Tablet 11/06/20 24 Active Levothyroxine Sodium 25 MCG Oral Tablet (Levoxyl) Take 1 Tablet by mouth in the morning. (at least 30 min prior to breakfast or other meds). 31 Tablet 5 02/11/20 24 Active Tamsulosin HCl 0.4 MG Oral Capsule (Flomax)Indications: BPH with obstruction/lower urinary tract symptoms Take 1 Capsule by mouth in the morning. 90 Capsule 1 02/22/20 24 Active Midodrine HCl 10 MG Oral Tablet (Proamatine)Indicati ons:Orthostatic hypotension Take first thing in the morning, again and noon, and in the evening but no later than 5 PM 270 Tablet 3 03/11/20 24 Active Mirtazapine 15 MG Oral Tablet (Remeron)Indications :Other insomnia Take 1 Tablet by mouth at bedtime. 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 Anemia due to antineoplastic chemotherapy 2023 Thrombocytopenia 06/05/2023 Bladder mass 06/05/2023 Pleural effusion 06/05/2023 COPD, severity to be determined 06/05/2023 Achalasia 06/05/2023 Chronic atrial fibrillation 06/05/2023 Chronic hypoxemic respiratory failure 06/05/2023 Aneurysm of right popliteal artery 06/05/2023 History of tobacco use 06/05/2023 Dyslipidemia, goal LDL below 70 06/05/2023 PVD (peripheral vascular disease) 06/05/2023 Protein-calorie malnutrition 06/05/2023 Hypertension goal BP (blood pressure) < 140/90 0 06/05/2023 Gouty arthropathy 06/05/2023 documented as of this encounter (statuses as of 05/20/2024) Resolved Problems Problem Noted Date Diagnosed Date Resolved Date Closed fracture of neck of right femur 08/30/2023 02/06/2024 documented as of this encounter (statuses as of 05/20/2024) Immunizations Name Administration Dates Next Due COVID-19, LNP-s, No Preserve , Frank-sucrose, Ages 12+ (Hunite) 12/21/2022,07/02/2020,06/20/2020 COVID-19, MRNA-LNP, PF, 30 M CG/0.3 mL, 12 YRS AND ABOVE, IM (PFIZER-Comirnaty) 01/13/2024 COVID-19, mRNA, LNP-s, PF, B ooster, 100mcg/0.5mg (Moderna) 02/01/2021 Covid-19, Mrna, Lnp-s, Pf, B ivalent, 10 Mcg, IM, 5-11 yrs (Pfizer) 12/12/2021 PPD 06/08/2023,06/03/2023 Pneumococcal Conjugate Vacc, 13 Valent (Prevnar) 12/29/2015 Pneumococcal Polysaccharide PPV23 (Pneumovax) 04/05/2011 RSV Vac., Recomb, Adjuvant, PF,0.5 Ml (Arexvy) 12/21/2022 Respiratory Syncytial Virus (Rsv) Vaccine, Unspecified (Use this ONLY If the brand of RSV MAB is not able to be identified) 12/21/2022 Season Influenza, Quad, PF, Adjuvanted, 65+ Yrs, IM (FLUAD) 01/11/2022,01/12/2021 Seasonal Influenza, High Dos e, Trivalent, PF, IM (Fluzone HD) 01/06/2024 Varicella Zoster Vaccine (Adult) 08/13/2012 Zoster Vaccine Recombinant (Shingrix) 10/24/2019 ,12/28/2018,12/25/2018 documented as of this encounter Social History Tobacco Use Types Packs/Day Years Used Date Smoking Tobacco: Former Cigarettes 0.3 50 1 966 - 2016 Smokeless Tobacco: Never Alcohol Use Standard Drinks/Week Comments Not Currently 0 (1 standard drink = 0.6 oz pur e alcohol) Sex and Gender Information Value Date Recorded Sex Assigned at Male 07/09/2023 4:42 PM EDT Legal Sex Male 7:45 PM EST Gender Identity Male 07/09/2023 4:42 PM EDT Sexual Orientation Straight 07/09/2023 4: 42 PM EDT documented as of this encounter Miscellaneous Notes * Telephone Encounter - Ang Orourke MD - 05/07/2024 4:37 PM EST This is just an FYI. * Telephone Encounter - Gregoria Sparks OSA - 05/07/2024 10:34 AM EST [facility], last visit 05/02/24 . Don't know if pt needs another procedure. Please review. Thank you. documented in this encounter Plan of Treatment Upcoming Encounters Date Type Department Care Team (Late st Contact Info) Description 05/29/2024 10:30 AM EST Office Visit Cardiology, [facility] [address] [place] [id number] Miko Khan PA-C [address] [place] [address] Health Maintenance Due Date Last Done Comments Depression Screening 1957 Albumin/Creatinine Ratio 09/16/1963 Alpha-1 Antitrypsin 09/16/1963 DTap/Tdap Vaccines (1 - Tdap) 1964 Adult Wellness Visit 09/16/2011 *COPD SEVERITY VERIFIED BY PFT 06/08/2023 COVID-19 Vaccine (5 - Pfizer risk 2023- season) 2024 01/13/2024, 12/21/2022, 12/12/2021, Additional history exists O2 ASSESSMENT COMPLETED IN PAST YEAR FOR COPD 08/09/2024 08/10/2023 GFR 10/08/2024 10/09/2023, 08/02, 07/23/2023, Additional history exists DIG LEVEL FOR MEDICATION MONITORING YEARLY 10/09/2024 10/10/2023, 07/09/2023 TSH 10/24/2024 10/25/2023, 07/23/2023 Pneumococcal Vaccine: 50+ Years Completed 12/29/2015, 04/05/2011 Zoster Vaccines Completed 10/24/2019, 12/02, 12/25/2018, Additional history exists Influenza Vaccine (FLU shot) Completed 09/2023, 01/11/2022, 01/12/2021 HPV (Gardasil) Vaccine Aged Out No lo nger eligible based on patient's age to complete this topic Hepatitis B Vaccine Aged Out No longe r eligible based on patient's age to complete this topic MENINGOCOCCAL (MENACTRA/MENVEO) Aged Out No longer eligible based on patient's age to complete this topic Meningitis B Vaccine (Bexsero/Trumemba) Aged Out No longer eligible based on patient's age to complete this topic documented as of this encounter Medical Devices Not on filedocumented as of this encounter Care Teams Retail Performance Specialist Relationship Specialty Start Date End Date Ashleigh Toribio MD [address] [place] [address] PCP - General Internal Medicine 08/10/23 documented as of this encounter
--- NOTE | 2024-05-26 11:09 | XRay Report ---
XR hip RT 2V w pelvis CLINICAL HISTORY: Right hip pain, fall COMPARISON: 09/12/2023 FINDINGS: Right hip prosthesis shows no hardware complication. No fracture or dislocation. IMPRESSION: No fracture seen. ACT 112: Negative or not required by law. Electronically signed by: Fabian York M.D. 05/26/2024 11:08 AM
--- NOTE | 2024-05-26 11:10 | XRay Report ---
XR chest 1V portable CLINICAL HISTORY: Weakness COMPARISON STUDY: 08/24/2023 FINDINGS: Stable right chest port. Heart size and pulmonary vasculature are normal. Stable small righ t pleural effusion and associated consolidation at the right lung base. Otherwise the lungs remain ae rated. IMPRESSION: Stable exam. ACT 112: Negative or not required by law. Electronically signed by: Fabian York M.D. 05/26/2024 11:08 AM
[2024-05-26 11:15] LABS: Alanine Aminotransferase 9 U/L (7-52); Albumin Globulin Ratio 1.1 (0.9-2); Albumin Level 3.4 gm/dl (3.4-5.0); Alkaline Phosphatase 64 U/L (34-104); Anion Gap 6 (3-11); Aspartate Aminotransferase 20 U/L (13-39); BUN Creatinine Ratio 35.8 (10-20); Blood Urea Nitrogen 34 mg/dl (6-23); Calcium 8.7 mg/dl (8.6-10.3); Carbon Dioxide 28 mmol/L (21-32); Chloride 100 mmol/L (98-107); Globulin 3.2 gm/dl (2.5-4.0); Glucose 108 mg/dl (70-99(Fasting)); Magnesium 1.7 mg/dl (1.7-2.4); Potassium 3.4 mmol/L (3.5-5.1); Sodium 134 mmol/L (136-145); Total Protein 6.6 gm/dl (6.0-8.3)
--- NOTE | 2024-05-26 11:15 | Emergency Department Note ---
Impression & Plan Hypotension, Weakness, Vomiting and diarrhea, Acute dehydration, Anemia ED Provider Note NAME: PETER GUZMAN AGE: 78 SEX: M : 1945 ARRIVES VIA: Walk-In INFORMANT: [Patient][family] ED PROVIDER(S): [Jose Light MD] CHIEF COMPLAINT: Weak, possible infection HISTORY OF PRESENT ILLNESS: The patient is a 78-year-old male who is undergoing chemotherapy. His last chemotherapy was 9 days ago. The patient states that 4 days ago, he began to feel unwell. He started having vomiting and diarrhea. No blood in the stool or vomit. No pain. No fever. No increased cough or congestion. No urinary complaints. The patient is feeling weak, his blood pressure is somewhat low. He feels he may be dehydrated. The patient states he has never been this ill from chemotherapy previously. Of note, the patient states that he fell off of his wheelchair onto his right hip a few days ago, this hip is a bit sore, no head injury. There was no loss of conscious. PMHx/PSHx/Social Hx: See Below PHYSICAL EXAM: GENERAL: Patient is in no acute distress. Fairly thin and frail. HEENT: No acute trauma, normocephalic atraumatic, mucous membranes dry, no nasal congestion. NECK: No stridor, no adenopathy, no meningismus, trachea is midline. LUNGS: Clear to auscultation bilaterally when listening anterior, no wheeze, no rhonchi, breath sounds equal. HEART: Rhythm seems regular, heart tones are quite distant. ABDOMEN: Soft, nontender, no peritonitis. EXTREMITIES: No cyanosis, full range of motion of all the joints. No gross deformities to the lower extremities. There is some pain with movement of the right hip. NEUROLOGIC: Oriented x 3, no acute motor or sensory deficits, no focal weakness. SKIN: No jaundice, no diaphoresis. Pale. DIFFERENTIAL DIAGNOSIS: Intracranial bleeding, fracture, contusion, dehydration, electrolyte imbalance, chemotherapy reaction, sepsis or bacteremia, among others. EMERGENCY DEPARTMENT PROCEDURES: MEDICAL DECISION MAKING: There is no leukocytosis. The patient is anemic however, this appears baseline looking back at recent testing. Platelet count slightly low at 113, likely from his recent chemotherapy. INR was mildly elevated at 1.3. PTT was elevated at 82. There was no renal failure or significant electrolyte abnormality. Lactic acid level was not elevated making severe sepsis less likely. No concerning liver enzyme elevation. ECG showed a sinus rhythm, no obvious ST elevation. Cardiac enzyme testing x 1 was not consistent with acute cardiac injury. Chest film showed stable findings, there was no pneumonia or CHF. Brain CT showed no acute bleed or mass effect. Films of the right hip were performed, there were no fractures or dislocations. On exam, the patient was hypotensive and appeared dehydrated. He was not toxic. The patient received IV saline for hydration, he was given 1 L. His blood pressure has improved. The patient appears primarily dehydrated from his vomiting and diarrhea. The cause for the vomiting and diarrhea is unclear but certainly may be viral, foodborne or related to his recent chemotherapy. He appears to have contused the right hip from his fall, no serious injury found by my workup or exam. I do think the patient requires further care in the hospital. He will require further hydration/observation. I did speak with the patient and his family. I did speak with case management. The on-call hospitalist was consulted. Prior/Outside records/notes reviewed: None ECG per my interpretation: Indication was hypotension. The ECG shows a normal sinus rhythm with a rate of 75. There is a significant amount of baseline artifact. There is no obvious ST elevation, no PVCs. There is some nonspecific ST change. The QTc is 439. Continuous Cardiac Monitoring per my interpretation: An order was placed for continuous cardiac monitoring. The monitor shows a rate of 71 with normal sinus rhythm. Imaging/x-ray results per my interpretation: Chest x-ray shows a small right pleural effusion, no focal pneumonia, no CHF. Right hip and pelvis films show a right hip prosthesis, there is no dislocation or fracture. Chronic Medical/Social conditions affecting care: Advanced age, currently undergoing chemotherapy. Care/Management discussed with: Case management, the on-call hospitalist. Level of care consideration(s): After review of the information above and other included data: --I believe the patient requires escalation of care to admission Critical Care Note: I have personally spent 43 minutes of critical care time in the direct management of this patient. This includes bedside care, interpretation of diagnostic studies, and testing, discussion with consultants, patient, and family members, and other required patient management activities. This 43 minutes is in excess of all separately billable procedures. DISPOSITION: Admission Past Med/Surg History Problem List (Updated 05/27/24 @ 12:01 by Jose Light MD) Anemia (Acute) Acute dehydration (Acute) Vomiting and diarrhea (Acute) Weakness (Acute) Hypotension (Acute) Bronchiectasis Abnormal PET of left lung Multiple pulmonary nodules determined by computed tomography of lung Esophageal adenocarcinoma Urothelial carcinoma of bladder Right lower lobe pulmonary nodule Status post hip hemiarthroplasty Closed right hip fracture Advanced care planning/counseling discussion Palliative care by specialist Constipation Severe muscle deconditioning Fatigue Poor sleep pattern Disrupted sleep-wake cycle Weakness generalized Dyspnea and respiratory abnormality Chronic hypoxic respiratory failure, on home oxygen therapy Chronic obstructive pulmonary disease Pleural effusion Bladder tumor Medical History Encounter for pre-operative examination PVD (peripheral vascular disease) Severe protein-calorie malnutrition Pyothorax without fistula Hx per records HLD (hyperlipidemia) CHF (congestive heart failure) Anemia (~04/2023) s/p recent blood transfusions Anxiety Atrial fibrillation Taking Eliquis Follows with [facility] in [place] Hx: recurrent pneumonia admitted at [facility], required a chest tube for drainage On home oxygen therapy 3L O2 continuous Familial tremor hand tremors consistently Bladder tumor Stage 4 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 Surgical History Other artificial openings of gastrointestinal tract status Hx of aortic aneurysm repair "right leg aneurysm fixed" Social History Smoking Status: Unknown if ever smoked Tobacco Type: Cigarettes and Pipe Cigarettes Per Day: 1 ppd; Second Hand Exposure: No; Do You Dip or Chew Tobacco: No; Hx Alcohol Use: No Hx Substance Use: No Preferred Language: Guyanese Communication Ability: Effective Genetic Physician Required: Yes Beliefs That Will Affect Care: None Current Living Situation: Family Current Living Situation Comment: with son Feels Safe at Home: Yes Safety Concerns: Feels Safe At This Time Assistive Devices: Cane and Walker Assistive Devices Comment: walker and wheelchair Allergies Allergies Allergy/AdvReac Type Severity Reaction Status Date / Time bupropion [From Wellbutrin] Allergy Mild Confusion Verified 05/26/24 12:15 varenicline [From Chantix] Allergy Mild Confusion Unverified 05/26/24 12:15 Home Meds Home Medications Medication Instructions Recorded Confirmed aspirin 81 mg tablet,delayed 81 mg PO QAM 05/24/23 05/26/24 release (Adult Low Dose Aspirin) atorvastatin 40 mg tablet 40 mg PO QPM 05/24/23 05/26/24 ferrous sulfate 325 mg (65 mg 325 mg PO DAILY 05/24/23 05/26/24 iron) tablet fluticasone propionate 50 1 spray intranasal BID 05/24/23 05/26/24 mcg/actuation nasal spray,suspension (Allergy Relief (fluticasone)) midodrine 10 mg tablet 10 mg PO TID 05/24/23 05/26/24 montelukast 10 mg tablet 10 mg PO DAILY 05/24/23 05/26/24 multivitamin 1 tab PO DAILY 05/24/23 05/26/24 ascorbate calcium (vitamin C) 500 500 mg PO QAM 06/01/23 05/26/24 mg tablet loratadine 10 mg tablet 10 mg PO QAM 06/01/23 05/26/24 tamsulosin 0.4 mg capsule 0.4 mg PO DAILY 06/01/23 05/26/24 docusate sodium 100 mg tablet 100 mg PO BID 06/05/23 05/26/24 sodium chloride 0.65 % nasal spray 1 spray intranasal BID PRN dryness 06/05/23 05/26/24 aerosol (Saline Mist) menthol 0.44 %-zinc oxide 20.6 % 1 applic topical QID PRN Rash 06/13/23 05/26/24 topical ointment (Calmoseptine) mirtazapine 15 mg tablet 15 mg PO HS 08/24/23 05/26/24 oxycodone 5 mg tablet 5 mg PO Q4H PRN Pain 08/24/23 05/26/24 dabigatran etexilate 150 mg capsule 150 mg PO BID 09/14/23 05/26/24 polyethylene glycol 3350 17 17 g PO DAILY PRN Constipation 09/14/23 05/26/24 gram/dose oral powder (Miralax) amiodarone 200 mg tablet 200 mg PO DAILY 10/26/23 05/26/24 acetaminophen 325 mg tablet 325 mg PO TID PRN Pain 05/26/24 05/26/24 alprazolam 0.25 mg tablet 0.25 mg PO HS PRN Anxiety/Sleep 05/26/24 05/26/24 digoxin 125 mcg (0.125 mg) tablet 125 mcg PO HS 05/26/24 05/26/24 duloxetine 20 mg capsule,delayed 20 mg PO QAM 05/26/24 05/26/24 release fluticasone fur. 200 mcg-umeclid 1 inh inhalation QAM 05/26/24 05/26/24 62.5 mcg-vilant 25 mcg inhalat.powder (Trelegy Ellipta) levothyroxine 25 mcg tablet 25 mcg PO DAILYBB 05/26/24 05/26/24 Previous Rx's Medication Instructions Recorded albuterol sulfate 90 mcg/actuation 2 puff inhalation Q6H PRN 07/16/23 aerosol inhaler shortness of breath or wheezing #3 Inhalers Results & Data (ED) Vital Signs Vital Signs - 24 hr 05/26/24 12:00 05/26/24 12:11 Pulse Rate 66 Pulse Rate [Apical] 65 Respiratory Rate 18 Blood Pressure [Right Arm] 101/63 Blood Pressure Mean [Right Arm] 75 Pulse Oximetry 96 Oxygen Delivery Method Room Air Home Medications Current Medication List: was personally reviewed by me Laboratory Data Attestation: I reviewed the patient's lab results. 05/27/24 09:28 05/27/24 09:28 Lab Results 05/26/24 05/26/24 Range/Units 10:40 11:33 WBC 6.04 (4.8-10.8) K/ul RBC 2.74 L (4.70-6.10) M/uL Hgb 9.1 L (14.0-18.0) g/dl Hct 27.6 L (42.0-52.0) % MCV 100.7 H (80.0-100.0) fL MCH 33.2 (25.0-34.0) pg MCHC 33.0 (32.0-36.0) g/dL RDW Std Deviation 61.4 H (36.4-46.3) fL RDW Coeff of Lenore 16.7 H (11.5-14.5) % Plt Count 113 L (130-400) K/uL MPV 9.6 (9.4-12.4) fL Immature Gran % (Auto) 0.5 % Neut % (Auto) 76.2 % Lymph % (Auto) 13.2 % [place] % (Auto) 9.4 % Eos % (Auto) 0.2 % Baso % (Auto) 0.5 % Neut # (Auto) 4.60 (1.40-6.50) K/uL Lymph # (Auto) 0.80 L (1.20-3.40) K/uL [place] # (Auto) 0.57 (0.11-0.59) K/uL Eos # (Auto) 0.01 (0.00-0.50) K/uL Baso # (Auto) 0.03 (0.00-0.20) K/uL Immature Gran # (Auto) 0.03 (0.01-0.20) K/uL PT 13.9 H (9.0-12.0) Seconds INR 1.3 H (0.9-1.1) APTT 82 H* (21-31) Seconds PTT Ratio 3.0 Sodium 134 L (136-145) mmol/L Potassium 3.4 L (3.5-5.1) mmol/L Chloride 100 (98-107) mmol/L Carbon Dioxide 28 (21-32) mmol/L Anion Gap 6 (3-11) BUN 34 H (6-23) mg/dl Creatinine 0.95 (0.6-1.4) mg/dl Est Cr Clr Drug Dosing Not Reportable eGFR 81.93 BUN/Creatinine Ratio 35.8 H (10-20) Glucose 108 H (70-99(Fasting)) mg/dl Calcium 8.7 (8.6-10.3) mg/dl Magnesium 1.7 (1.7-2.4) mg/dl Total Bilirubin 1.0 (0.2-1.0) mg/dl AST 20 (13-39) U/L ALT 9 (7-52) U/L Alkaline Phosphatase 64 (34-104) U/L Troponin I High Sens 8.2 (0-20) pg/ml Total Protein 6.6 (6.0-8.3) gm/dl Albumin 3.4 (3.4-5.0) gm/dl Globulin 3.2 (2.5-4.0) gm/dl Albumin/Globulin Ratio 1.1 (0.9-2) Administered Medications Alprazolam (Alprazolam 0.25 Mg Tablet) 0.25 mg PO HS PRN PRN Reason: Anxiety/Sleep Stop: 06/25/24 12:38 Last Admin: 05/26/24 19:55 Dose: 0.25 mg Documented By: DILAN Amiodarone HCl (Amiodarone 200 Mg Tab) 200 mg PO DAILY [facility] Stop: 06/26/24 08:59 Last Admin: 05/27/24 08:44 Dose: 200 mg Documented By: CS Ascorbic Acid (Ascorbic Acid 500 Mg Tab) 500 mg PO QAM [facility] Stop: 06/26/24 08:59 Last Admin: 05/27/24 08:39 Dose: 500 mg Documented By: CS Aspirin (Aspirin 81 Mg Ectab) 81 mg PO QAM [facility] Stop: 06/26/24 08:59 Last Admin: 05/27/24 08:39 Dose: 81 mg Documented By: CS Atorvastatin Calcium (Atorvastatin 40 Mg Tab) 40 mg PO QPM [facility] Stop: 06/25/24 20:59 Last Admin: 05/26/24 21:56 Dose: 40 mg Documented By: DILAN Dabigatran (Dabigatran Etexilate 75 Mg Cap) 150 mg PO BID [facility] Stop: 06/25/24 20:59 Last Admin: 05/27/24 08:40 Dose: 150 mg Documented By: Admin: 05/26/24 21:56 Dose: 150 mg Documented By: DILAN Digoxin (Digoxin 0.125 Mg Tab) 0.125 mg PO HS [facility] Stop: 06/25/24 20:59 Last Admin: 05/26/24 21:57 Dose: Not Given Documented By: DILAN Duloxetine HCl (Duloxetine Hcl 20 Mg Cap) 20 mg PO QAM [facility] Stop: 06/26/24 08:59 Last Admin: 05/27/24 08:39 Dose: 20 mg Documented By: JIE Fluticasone Furoate (Fluticasone Furoate 200mcg 14 Puffs/Inhaler) 1 puffs INH DAILY [facility] Stop: 06/26/24 08:59 Last Admin: 05/27/24 08:45 Dose: 1 puffs Documented By: JIE Sodium Chloride (Nss) 1,000 mls @ 80 mls/hr IV .[id number] [facility] Stop: 05/27/24 12:44 Last Admin: 05/27/24 02:51 Dose: 80 mls/hr Documented By: Infusion: 05/27/24 01:28 Dose: Infused Documented By: Admin: 05/26/24 12:58 Dose: 80 mls/hr Documented By: LINDSEY Levothyroxine Sodium (Levothyroxine Sodium 25 Mcg Tablet) 25 mcg PO DAILYBB [facility] Stop: 06/26/24 06:29 Last Admin: 05/27/24 06:11 Dose: 25 mcg Documented By: DILAN Midodrine (Midodrine Hcl 10 Mg Tab) 10 mg PO TID [facility] Stop: 06/25/24 13:59 Last Admin: 05/27/24 08:39 Dose: 10 mg Documented By: Admin: 05/26/24 21:55 Dose: 10 mg Documented By: Admin: 05/26/24 13:37 Dose: 10 mg Documented By: LINDSEY Mirtazapine (Mirtazapine Tab 15 Mg Tab) 15 mg PO HS [facility] Stop: 06/25/24 20:59 Last Admin: 05/26/24 21:56 Dose: 15 mg Documented By: DILAN Montelukast Sodium (Montelukast Sodium 10 Mg Tablet) 10 mg PO DAILY [facility] Stop: 06/26/24 08:59 Last Admin: 05/27/24 08:38 Dose: 10 mg Documented By: JIE Oxycodone HCl (Oxycodone Hcl Ir 5 Mg Tab (Immediate Release)) 5 mg PO Q4H PRN PRN Reason: Pain Stop: 06/09/24 12:38 Last Admin: 05/27/24 02:51 Dose: 5 mg Documented By: Admin: 05/26/24 19:56 Dose: 5 mg Documented By: Admin: 05/26/24 13:41 Dose: 5 mg Documented By: LINDSEY Tamsulosin HCl (Tamsulosin Hcl 0.4 Mg Cap) 0.4 mg PO DAILY [facility] Stop: 06/26/24 08:59 Last Admin: 05/27/24 08:38 Dose: 0.4 mg Documented By: JIE Umeclidinium/Vilanterol (Umeclidinium/Vilanterol 62.5/25mcg 7 Puffs/Inhaler) 1 puffs INH DAILY [facility] Stop: 06/26/24 08:59 Last Admin: 05/27/24 08:45 Dose: 1 puffs Documented By: JIE Discontinued Medications Sodium Chloride (Nss) 1,000 mls @ 999 mls/hr IV .Q1H1M ONE Stop: 05/26/24 12:07 Last Infusion: 05/26/24 12:20 Dose: Infused Documented By: Admin: 05/26/24 11:17 Dose: 999 mls/hr Documented By: LINDSEY Potassium Chloride (K Ousmane / Wtr) 10 meq in 100 mls @ 100 mls/hr IV Q1H [facility] Stop: 05/26/24 15:29 Last Infusion: 05/26/24 16:08 Dose: Infused Documented By: Admin: 05/26/24 15:02 Dose: 100 mls/hr Documented By: Infusion: 05/26/24 15:02 Dose: Infused Documented By: Admin: 05/26/24 14:00 Dose: 100 mls/hr Documented By: LINDSEY Magnesium Sulfate/Dextrose (Magnesium Sulfate / D5w) 1 gm in 100 mls @ 50 mls/hr IV Q2H [facility] Stop: 05/26/24 17:29 Last Infusion: 05/26/24 20:19 Dose: Infused Documented By: Admin: 05/26/24 18:06 Dose: 50 mls/hr Documented By: Infusion: 05/26/24 15:58 Dose: Infused Documented By: Admin: 05/26/24 13:58 Dose: 50 mls/hr Documented By: LINDSEY Sodium Chloride (Nss) 500 mls @ 500 mls/hr IV .Q1H ONE Stop: 05/27/24 00:12 Last Infusion: 05/27/24 01:09 Dose: Infused Documented By: Admin: 05/26/24 23:43 Dose: 500 mls/hr Documented By: DILAN Miscellaneous (Patient's Height &/Or Weight Needed) 1 each N/A NOW STA Stop: 05/26/24 14:53 Last Admin: 05/26/24 16:37 Dose: Not Given Documented By: ALEXANDR Miscellaneous (Patient's Height &/Or Weight Needed) 1 each N/A NOW STA Stop: 05/26/24 16:23 Last Admin: 05/26/24 19:38 Dose: 1 each Documented By: DILAN Ondansetron HCl (Ondansetron Inj 2 Mg/Ml 2 Ml Vial) 4 mg IV NOW STA Stop: 05/26/24 11:08 Last Admin: 05/26/24 11:17 Dose: 4 mg Documented By: LINDSEY Potassium Chloride (Potassium Chloride Crtab 20 Meq Tabcr) 40 meq PO NOW STA Stop: 05/27/24 08:59 Last Admin: 05/27/24 09:36 Dose: 40 meq Documented By: JIE Imaging Data Radiologist's Impression: Chest X-Ray 05/26/24 09:20 XR chest 1V portable CLINICAL HISTORY: Weakness COMPARISON STUDY: 08/24/2023 FINDINGS: Stable right chest port. Heart size and pulmonary vasculature are normal. Stable small right pleural effusion and associated consolidation at the right lung base. Otherwise the lungs remain aerated. IMPRESSION: Stable exam. ACT 112: Negative or not required by law. Electronically signed by: Fabian York M.D. 05/26/2024 11:08 AM Hip/Pelvis X-Ray 05/26/24 09:20 XR hip RT 2V w pelvis CLINICAL HISTORY: Right hip pain, fall COMPARISON: 09/12/2023 FINDINGS: Right hip prosthesis shows no hardware complication. No fracture or dislocation. IMPRESSION: No fracture seen. ACT 112: Negative or not required by law. Electronically signed by: Fabian York M.D. 05/26/2024 11:08 AM Discharge Plan Visit Data Chief Complaint: Infection Stated Complaint: POSSIBLE LUNG INFECTION, CHEMO SIDE EFFECTS ED Provider: Jose Light Discharge Problem: Hypotension, Weakness, Vomiting and diarrhea, Acute dehydration, Anemia Patient Disposition: Admitted As Inpatient Condition: Fair Discharge Instructions Interventions: ED Discharge Assessment Last Done: 05/26/24 14:55 Discharge Problem: Hypotension Qualifiers: Hypotension type: unspecified hypotension type Qualified Code(s): I95.9 - Hypotension, unspecified Anemia Qualifiers: Anemia type: unspecified type Qualified Code(s): D64.9 - Anemia, unspecified
[2024-05-26] MEDS: SODIUM CHLORIDE 0.9% 1,000 ML IV ONE (11:17)
[2024-05-26] MEDS: ONDANSETRON INJ 2 MG/ML 2 ML VIAL IV STA (11:17)
[2024-05-26 11:30] LABS: INR 1.3 (0.9-1.1); Prothrombin Time 13.9 Seconds (9.0-12.0)
--- NOTE | 2024-05-26 11:33 | CT Scan Report ---
CT head/brain wo con CLINICAL HISTORY: fall, pradaxa. TECHNIQUE: Multiple axial CT images of the head were obtained without contrast. A dose lowering tech nique was utilized adhering to the principles of ALARA. CT DOSE: 625.8 mGy.cm COMPARISON: None FINDINGS: No intracranial hemorrhage seen. No mass effect, midline shift, or hydrocephalus. No skull fracture seen. Visualized paranasal sinuses and mastoid air cells are clear. IMPRESSION: No acute findings. ACT 112: Negative or not required by law. The above report was generated using voice recognition software. It may contain grammatical, syntax o r spelling errors. Electronically signed by: Fabian York M.D. 05/26/2024 11:31 AM
[2024-05-26 11:46] LABS: Partial Thromboplastin Time 82 Seconds (21-31)
[2024-05-26] MEDS ORDERED: ONDANSETRON INJ 2 MG/ML 2 ML VIAL IV PRN (12:38)
[2024-05-26] MEDS: SODIUM CHLORIDE 0.9% 1,000 ML IV SCH (12:58)
--- NOTE | 2024-05-26 13:03 | History & Physical Report ---
<Statement entered by David Young, DO - 05/26/24 15:05> I have seen and examined the patient and have discussed the case with the advance practice provider. I have reviewed the advanced practitioner's documentation, and I agree with, and take responsibility for that plan of care. Patient seen while in ED, son at bedside. Patient reports has not had this type of reaction to his chemotherapy prior. Respiratory viral panel negative, ruling out influenza as a potential source for his diarrhea Suspect acute diarrhea may be due to effects of chemotherapy, stool BioFire pending. Continue supportive care Additional plan of care as outlined below I spent a total of 16 minutes coordinating, documenting, and providing care for this patient excluding time spent by another provider/QHP. Date of Service May 26, 2024 Assessment & Plan (1) Esophageal adenocarcinoma: (2) Urothelial carcinoma of bladder: (3) Weakness generalized: (4) Dyspnea and respiratory abnormality: (5) Chronic obstructive pulmonary disease: (6) HLD (hyperlipidemia): (7) CHF (congestive heart failure): Plan Assessment and plan: N/V/D: Suspect viral etiology Check stool sample, rule out C. difficile, check BioFire SBP's improved with IV fluids, continue IV fluids overnight Hx esophageal cancer with lung nodule and hepatic mets: Currently on Opdivo, follows with heme-onc, last infusion 05/17/2024 PTT likely prolonged secondary to liver lesions Hx COPD Hx chronic right lung pleural effusion Managed on Trelegy and montelukast, follows with pulm outpatient Hx diastolic CHF with normal EF: Orthostatic hypotension: Last echo in September 2023 with an EF of 50-55% and mild diastolic dysfunction Continue midodrine Hx hypothyroidism: Continue Synthroid Hx AF on AC: Currently in sinus rhythm, continue digoxin/Pradaxa/amiodarone The patient is a DNR/DNI DVT prophylaxis: Pradaxa A total of 60 minutes was spent on chart review/facilitating plan of care/reviewing diagnostic data/discussion with consultants. History of Present Illness Chief Complaint: Nausea/vomiting/diarrhea Primary Care Provider: Ashleigh Toribio MD The patient is a 78-year-old male with a past medical history of esophageal adenocarcinomawith lung nodules, chronic right pleural effusion liver lesionson Opdivo, atrial fibrillation, HLD, anxiety, COPD on Trelegy, bladder mass s/p TURP June 19, 2023, noninvasive low-grade papillary urothelial carcinoma, diastolic CHF, HTN, PAD s/p bypass for right popliteal artery aneurysm who presents to the ED on 05/22/2024 with complaints of nausea/vomiting/diarrhea for the past 5 days. Patient had his last chemo treatment on 05/17/2024. Patient also reported a mechanical fall on 05/23 secondary to weakness. Patient reports he has been unable to keep his medications down over the past few days. SBP's in the 80s on arrival to the ED, this improved with IV fluids On arrival to the ED, labs are remarkable for hemoglobin 9.1, INR 1.3, APTT 82, sodium 134, potassium 3.4, BUN 34, Chest x-ray negative Hip/pelvis x-ray negative Head CT negative EKG showed normal sinus rhythm in the 70s. The patient was given IV fluids and Zofran in the ED and will be admitted for further management Allergies Allergy/AdvReac Type Severity Reaction Status Date / Time bupropion [From Wellbutrin] Allergy Mild Confusion Verified 05/26/24 12:15 varenicline [From Chantix] Allergy Mild Confusion Unverified 05/26/24 12:15 Home Medications Medication Instructions Recorded Confirmed Type aspirin 81 mg tablet,delayed 81 mg PO QAM 05/24/23 05/26/24 History release (Adult Low Dose Aspirin) atorvastatin 40 mg tablet 40 mg PO QPM 05/24/23 05/26/24 History ferrous sulfate 325 mg (65 mg 325 mg PO DAILY 05/24/23 05/26/24 History iron) tablet fluticasone propionate 50 1 spray intranasal BID 05/24/23 05/26/24 History mcg/actuation nasal spray,suspension (Allergy Relief (fluticasone)) midodrine 10 mg tablet 10 mg PO TID 05/24/23 05/26/24 History montelukast 10 mg tablet 10 mg PO DAILY 05/24/23 05/26/24 History multivitamin 1 tab PO DAILY 05/24/23 05/26/24 History ascorbate calcium (vitamin C) 500 500 mg PO QAM 06/01/23 05/26/24 History mg tablet loratadine 10 mg tablet 10 mg PO QAM 06/01/23 05/26/24 History tamsulosin 0.4 mg capsule 0.4 mg PO DAILY 06/01/23 05/26/24 History docusate sodium 100 mg tablet 100 mg PO BID 06/05/23 05/26/24 History sodium chloride 0.65 % nasal spray 1 spray intranasal BID PRN dryness 06/05/23 05/26/24 History aerosol (Saline Mist) menthol 0.44 %-zinc oxide 20.6 % 1 applic topical QID PRN Rash 06/13/23 05/26/24 History topical ointment (Calmoseptine) albuterol sulfate 90 mcg/actuation 2 puff inhalation Q6H PRN 07/16/23 05/26/24 Rx aerosol inhaler shortness of breath or wheezing #3 Inhalers mirtazapine 15 mg tablet 15 mg PO HS 08/24/23 05/26/24 History oxycodone 5 mg tablet 5 mg PO Q4H PRN Pain 08/24/23 05/26/24 History dabigatran etexilate 150 mg capsule 150 mg PO BID 09/14/23 05/26/24 History polyethylene glycol 3350 17 17 g PO DAILY PRN Constipation 09/14/23 05/26/24 History gram/dose oral powder (Miralax) amiodarone 200 mg tablet 200 mg PO DAILY 10/26/23 05/26/24 History acetaminophen 325 mg tablet 325 mg PO TID PRN Pain 05/26/24 05/26/24 History alprazolam 0.25 mg tablet 0.25 mg PO HS PRN Anxiety/Sleep 05/26/24 05/26/24 History digoxin 125 mcg (0.125 mg) tablet 125 mcg PO HS 05/26/24 05/26/24 History duloxetine 20 mg capsule,delayed 20 mg PO QAM 05/26/24 05/26/24 History release fluticasone fur. 200 mcg-umeclid 1 inh inhalation QAM 05/26/24 05/26/24 History 62.5 mcg-vilant 25 mcg inhalat.powder (Trelegy Ellipta) levothyroxine 25 mcg tablet 25 mcg PO DAILYBB 05/26/24 05/26/24 History Past Med/Surg History Problem List (Updated 03/24/24 @ 17:38 by Fransico Negrete MD) Bronchiectasis Abnormal PET of left lung Multiple pulmonary nodules determined by computed tomography of lung Esophageal adenocarcinoma Urothelial carcinoma of bladder Right lower lobe pulmonary nodule Status post hip hemiarthroplasty Closed right hip fracture Advanced care planning/counseling discussion Palliative care by specialist Constipation Severe muscle deconditioning Fatigue Poor sleep pattern Disrupted sleep-wake cycle Weakness generalized Dyspnea and respiratory abnormality Chronic hypoxic respiratory failure, on home oxygen therapy Chronic obstructive pulmonary disease Pleural effusion Bladder tumor Medical History PVD (peripheral vascular disease) Severe protein-calorie malnutrition Pyothorax without fistula Hx per records HLD (hyperlipidemia) CHF (congestive heart failure) Anemia (~04/2023) s/p recent blood transfusions Anxiety Atrial fibrillation Taking Eliquis Follows with [facility] in [place] Hx: recurrent pneumonia admitted at [facility], required a chest tube for drainage On home oxygen therapy 3L O2 continuous Familial tremor hand tremors consistently Bladder tumor Esophageal cancer Esophageal adenocarcinoma diagnosed January 2023 status post paclitaxel and carboplatin chemoradiation completed 04/2023 Stage 4 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 Surgical History Other artificial openings of gastrointestinal tract status Hx of aortic aneurysm repair "right leg aneurysm fixed" Social History Smoking Status: Former smoker Tobacco Type: Cigarettes and Pipe Cigarettes Per Day: 1 ppd; Second Hand Exposure: No; Do You Dip or Chew Tobacco: No; Hx Alcohol Use: Yes Alcohol type: hard liquor Hx Substance Use: No Preferred Language: Tajik Communication Ability: Effective Medical Registrar Required: No Beliefs That Will Affect Care: None Current Living Situation: Detention Current Living Situation Comment: home in [place], 2 sons within 3 hours Feels Safe at Home: Yes Assistive Devices: Cane and Walker Review of Systems Review of Systems: All systems reviewed & are unremarkable except as noted in HPI & below Physical Exam Constitutional: WD/WN, vitals as above + ill appearing; no acute distress Eyes: PERRL, conjunctivae normal, anicteric sclerae ENMT: external ear and nose normal, oropharynx normal Neck: trachea midline, no thyromegaly Respiratory: normal respiratory effort, lungs clear to auscultation (Diminished in all [place]) Cardiovascular: RRR, no murmur, no edema Chest (Breasts): normal inspection/palpation of breasts Gastrointestinal (Abdomen): normal bowel sounds, soft, nontender, no hepatosplenomegaly Musculoskeletal: no cyanosis or clubbing, extremities motor strength 5/5 Neurologic: PERRL, EOMI, accommodation nl, no face palsy, no dysarthria Psychiatric: A+Ox3, euthymic affect Genitourinary: no testicular masses, no penis abnormality Lymphatic: no cervical or axillary lymphadenopathy Results & Data Results & Data Vital Signs (Past 12 Hours) Vital Signs Temp Pulse Pulse Resp BP BP Pulse Ox 05/26/24 12:11 66 05/26/24 12:00 65 18 101/63 96 05/26/24 11:00 71 18 89/62 L 96 05/26/24 09:15 36.8 C 79 18 88/57 L 91 O2 Del Method 05/26/24 12:11 05/26/24 12:00 Room Air 05/26/24 11:00 Room Air 05/26/24 09:15 Room Air Diagnostic Findings Laboratory Results WBC 6.04 K/ul (4.8-10.8) 05/26/24 10:40 RBC 2.74 M/uL (4.70-6.10) L 05/26/24 10:40 Hgb 9.1 g/dl (14.0-18.0) L 05/26/24 10:40 Hct 27.6 % (42.0-52.0) L 05/26/24 10:40 MCV 100.7 fL (80.0-100.0) H 05/26/24 10:40 MCH 33.2 pg (25.0-34.0) 05/26/24 10:40 MCHC 33.0 g/dL (32.0-36.0) 05/26/24 10:40 RDW Std Deviation 61.4 fL (36.4-46.3) H 05/26/24 10:40 RDW Coeff of Lenore 16.7 % (11.5-14.5) H 05/26/24 10:40 Plt Count 113 K/uL (130-400) L 05/26/24 10:40 MPV 9.6 fL (9.4-12.4) 05/26/24 10:40 Immature Gran % (Auto) 0.5 % 05/26/24 10:40 Neut % (Auto) 76.2 % 05/26/24 10:40 Lymph % (Auto) 13.2 % 05/26/24 10:40 [place] % (Auto) 9.4 % 05/26/24 10:40 Eos % (Auto) 0.2 % 05/26/24 10:40 Baso % (Auto) 0.5 % 05/26/24 10:40 Neut # (Auto) 4.60 K/uL (1.40-6.50) 05/26/24 10:40 Lymph # (Auto) 0.80 K/uL (1.20-3.40) L 05/26/24 10:40 [place] # (Auto) 0.57 K/uL (0.11-0.59) 05/26/24 10:40 Eos # (Auto) 0.01 K/uL (0.00-0.50) 05/26/24 10:40 Baso # (Auto) 0.03 K/uL (0.00-0.20) 05/26/24 10:40 Immature Gran # (Auto) 0.03 K/uL (0.01-0.20) 05/26/24 10:40 PT 13.9 Seconds (9.0-12.0) H 05/26/24 10:40 INR 1.3 (0.9-1.1) H 05/26/24 10:40 APTT 82 Seconds (21-31) H* 05/26/24 10:40 PTT Ratio 3.0 05/26/24 10:40 Sodium 134 mmol/L (136-145) L 05/26/24 10:40 Potassium 3.4 mmol/L (3.5-5.1) L 05/26/24 10:40 Chloride 100 mmol/L (98-107) 05/26/24 10:40 Carbon Dioxide 28 mmol/L (21-32) 05/26/24 10:40 Anion Gap 6 (3-11) 05/26/24 10:40 BUN 34 mg/dl (6-23) H 05/26/24 10:40 Creatinine 0.95 mg/dl (0.6-1.4) 05/26/24 10:40 Est Cr Clr Drug Dosing Not Reportable 05/26/24 10:40 eGFR 81.93 05/26/24 10:40 BUN/Creatinine Ratio 35.8 (10-20) H 05/26/24 10:40 Glucose 108 mg/dl (70-99(Fasting)) H 05/26/24 10:40 Calcium 8.7 mg/dl (8.6-10.3) 05/26/24 10:40 Magnesium 1.7 mg/dl (1.7-2.4) 05/26/24 10:40 Total Bilirubin 1.0 mg/dl (0.2-1.0) 05/26/24 10:40 AST 20 U/L (13-39) 05/26/24 10:40 ALT 9 U/L (7-52) 05/26/24 10:40 Alkaline Phosphatase 64 U/L (34-104) 05/26/24 10:40 Troponin I High Sens 8.2 pg/ml (0-20) 05/26/24 11:33 Total Protein 6.6 gm/dl (6.0-8.3) 05/26/24 10:40 Albumin 3.4 gm/dl (3.4-5.0) 05/26/24 10:40 Globulin 3.2 gm/dl (2.5-4.0) 05/26/24 10:40 Albumin/Globulin Ratio 1.1 (0.9-2) 05/26/24 10:40 Impressions Chest X-Ray 05/26/24 09:20 XR chest 1V portable CLINICAL HISTORY: Weakness COMPARISON STUDY: 08/24/2023 FINDINGS: Stable right chest port. Heart size and pulmonary vasculature are normal. Stable small right pleural effusion and associated consolidation at the right lung base. Otherwise the lungs remain aerated. IMPRESSION: Stable exam. ACT 112: Negative or not required by law. Electronically signed by: Fabian York M.D. 05/26/2024 11:08 AM Hip/Pelvis X-Ray 05/26/24 09:20 XR hip RT 2V w pelvis CLINICAL HISTORY: Right hip pain, fall COMPARISON: 09/12/2023 FINDINGS: Right hip prosthesis shows no hardware complication. No fracture or dislocation. IMPRESSION: No fracture seen. ACT 112: Negative or not required by law. Electronically signed by: Fabian York M.D. 05/26/2024 11:[address] 05/26/24 11:07 CT head/brain wo con CLINICAL HISTORY: fall, pradaxa. TECHNIQUE: Multiple axial CT images of the head were obtained without contrast. A dose lowering technique was utilized adhering to the principles of ALARA. CT DOSE: 625.8 mGy.cm COMPARISON: None FINDINGS: No intracranial hemorrhage seen. No mass effect, midline shift, or hydrocephalus. No skull fracture seen. Visualized paranasal sinuses and mastoid air cells are clear. IMPRESSION: No acute findings. ACT 112: Negative or not required by law. The above report was generated using voice recognition software. It may contain grammatical, syntax or spelling errors. Electronically signed by: Fabian York M.D. 05/26/2024 11:31 AM Code Status & VTE Plan VTE Prophylaxis Plan VTE Prophylaxis will be ordered: No Reason for no VTE drug order: Contraindicated (5) Chronic obstructive pulmonary disease COPD type: emphysema Emphysema type: panlobular Qualified Code(s): J43.1 - Panlobular emphysema
[2024-05-26] MEDS: MIDODRINE HCL 10 MG TAB PO SCH (13:37)
[2024-05-26] MEDS: oxyCODONE HCL IR 5 MG TAB (IMMEDIATE RELEASE) PO PRN (13:41)
[2024-05-26] MEDS: MAGNESIUM SULFATE / D5W 1 GM/100 ML BAG IV SCH (13:58)
[2024-05-26] MEDS: POTASSIUM CHLORIDE / WTR 10 MEQ/100 ML PLCT IV SCH (14:00)
[2024-05-26 14:43] LABS: Adenovirus PCR Not Detected (NotDetected); Bordetella parapertussis PCR Not Detected (NotDetected); Bordetella pertussis PCR Not Detected (NotDetected); Chlamydia pneumoniae PCR Not Detected (NotDetected); Coronavirus 229E PCR Not Detected (NotDetected); Coronavirus CoV-2 (COVID19)PCR Not Detected (NotDetected); Coronavirus HKU1 PCR Not Detected (NotDetected); Coronavirus NL63 PCR Not Detected (NotDetected); Coronavirus OC43PCR Not Detected (NotDetected); Human Metapneumovirus PCR Not Detected (NotDetected); Influenza A PCR Not Detected (NotDetected); Influenza B PCR Not Detected (NotDetected); Mycoplasma pneumoniae PCR Not Detected (NotDetected); Parainfluenza Virus 1 PCR Not Detected (NotDetected); Parainfluenza Virus 2 PCR Not Detected (NotDetected); Parainfluenza Virus 3 PCR Not Detected (NotDetected); Parainfluenza Virus 4 PCR Not Detected (NotDetected); Respiratory Syncytial VirusPCR Not Detected (NotDetected); Rhinovirus/Enterovirus PCR Not Detected (NotDetected)
--- NOTE | 2024-05-26 15:45 | Electrocardiogram Report ---
Test Reason : Blood Pressure : */* mmHG Vent. Rate : 75 BPM Atrial Rate : 75 BPM P-R Int : 172 ms QRS Dur : 80 ms QT Int : 394 ms P-R-T Axes : 90 -26 68 degrees QTcB Int : 439 ms Normal sinus rhythm Low voltage QRS Nonspecific ST and T wave abnormality Abnormal ECG When compared with ECG of 24-Aug-2023 13:40, Sinus rhythm has replaced Atrial fibrillation QRS axis Shifted left Confirmed by Godwin Anderson ([id number]) on 05/26/2024 3:45:19 PM Referred By: Confirmed By: Godwin Anderson
[2024-05-26] MEDS: Patient's HEIGHT &/or WEIGHT Needed STA ×2 (16:37→19:38)
[2024-05-26] MEDS ORDERED: Patient's HEIGHT &/or WEIGHT Needed SCH (17:45)
[2024-05-26] MEDS: ALPRAZolam 0.25 MG TABLET PO PRN (19:55)
[2024-05-26] MEDS: ATORVASTATIN 40 MG TAB PO SCH (21:56)
[2024-05-26] MEDS: MIRTAZAPINE TAB 15 MG TAB PO SCH (21:56)
[2024-05-26] MEDS: DABIGATRAN ETEXILATE 75 MG CAP PO SCH (21:56)
[2024-05-26] MEDS: DIGOXIN 0.125 MG TAB PO SCH (21:57)
[2024-05-26] MEDS: SODIUM CHLORIDE 0.9% 500 ML IV ONE (23:43)
[2024-05-27] MEDS: LEVOTHYROXINE SODIUM 25 MCG TABLET PO SCH (06:11)
[2024-05-27] MEDS: MONTELUKAST SODIUM 10 MG TABLET PO SCH (08:38)
[2024-05-27] MEDS: TAMSULOSIN HCL 0.4 MG CAP PO SCH (08:38)
[2024-05-27] MEDS: ASCORBIC ACID 500 MG TAB PO SCH (08:39)
[2024-05-27] MEDS: ASPIRIN 81 MG ECTAB PO SCH (08:39)
[2024-05-27] MEDS: DULoxetine HCL 20 MG CAP PO SCH (08:39)
[2024-05-27] MEDS: AMIODARONE 200 MG TAB PO SCH (08:44)
[2024-05-27] MEDS: FLUTICASONE FUROATE 200MCG 14 PUFFS/INHALER INH SCH (08:45)
[2024-05-27] MEDS: UMECLIDINIUM/VILANTEROL 62.5/25MCG 7 PUFFS/INHALER INH SCH (08:45)
[2024-05-27] MEDS ORDERED: NON-FORMULARY MEDICATION (Fluticasone-Umeclidin-Vilanter [Trelegy Ellipta] 200-62.5-25 mcg INH SCH (09:00)
[2024-05-27] MEDS: POTASSIUM CHLORIDE CRTAB 20 MEQ TABCR PO STA (09:36)
[2024-05-27 09:58] LABS: Basophils # (auto) 0.02 K/uL (0.00-0.20); Basophils % (auto) 0.5 %; Eosinophils # (auto) 0.05 K/uL (0.00-0.50); Eosinophils % (auto) 1.3 %; Hematocrit (blood only) 23.8 % (42.0-52.0); Hemoglobin 7.7 g/dl (14.0-18.0); Immature Granulocytes # (auto) 0.02 K/uL (0.01-0.20); Immature Granulocytes % (auto) 0.5 %; Lymphocytes # (auto) 0.76 K/uL (1.20-3.40); Lymphocytes % (auto) 19.1 %; Mean Corpuscular Hemoglobin 32.9 pg (25.0-34.0); Mean Corpuscular Hgb Conc 32.4 g/dL (32.0-36.0); Mean Corpuscular Volume 101.7 fL (80.0-100.0); Mean Platelet Volume 9.5 fL (9.4-12.4); Monocytes # (auto) 0.35 K/uL (0.11-0.59); Monocytes % (auto) 8.8 %; Neutrophils # (auto) 2.77 K/uL (1.40-6.50); Neutrophils % (auto) 69.8 %; Platelet Count 91 K/uL (130-400); RDW Coefficient of Variation 16.9 % (11.5-14.5); RDW Standard Deviation 62.3 fL (36.4-46.3); Red Blood Count 2.34 M/uL (4.70-6.10); White Blood Count 3.97 K/ul (4.8-10.8)
[2024-05-27 10:16] LABS: Ovalocytes 1+; Polychromasia 1+
[2024-05-27 10:17] LABS: Albumin Globulin Ratio 1.1 (0.9-2); Albumin Level 2.8 gm/dl (3.4-5.0); BUN Creatinine Ratio 30.4 (10-20); Bilirubin,Total 0.7 mg/dl (0.2-1.0); Calcium 7.5 mg/dl (8.6-10.3); Creatinine Clr Calc Pharmacy 79.7 ml/min; Globulin 2.6 gm/dl (2.5-4.0); Magnesium 1.8 mg/dl (1.7-2.4); Total Protein 5.4 gm/dl (6.0-8.3)
--- NOTE | 2024-05-27 15:35 | Hospitalist Progress Note ---
Date of Service May 27, 2024 Assessment & Plan (1) Esophageal adenocarcinoma: (2) Urothelial carcinoma of bladder: (3) Weakness generalized: (4) Dyspnea and respiratory abnormality: (5) Chronic obstructive pulmonary disease: (6) HLD (hyperlipidemia): (7) CHF (congestive heart failure): Plan Assessment and plan: N/V/D, resolving: Suspect viral etiology -much improved today work with PT/OT, trial solid foods SBP's improved with IV fluids, continue IV fluids overnight Hx esophageal cancer with lung nodule and hepatic mets: Currently on Opdivo, follows with heme-onc, last infusion 05/17/2024 PTT likely prolonged secondary to liver lesions Hx COPD Hx chronic right lung pleural effusion Managed on Trelegy and montelukast, follows with pulm outpatient Hx diastolic CHF with normal EF: Orthostatic hypotension: Last echo in September 2023 with an EF of 50-55% and mild diastolic dysfunction Continue midodrine Hx hypothyroidism: Continue Synthroid Hx AF on AC: Currently in sinus rhythm, continue digoxin/Pradaxa/amiodarone Feeding/fluids: regular Analgesia: tylenol Sedation: na Thromboprophylaxis: pradaxa Head up position: na Ulcer prophylaxis: na Glycemic control: na Spontaneous breathing trial: on room air Bowel care: na Indwelling catheter removal: na Deescalation of antibiotics: na I spent a total of 45 minutes in direct patient care, including [id number] time with the patient and/or family, reviewing medical records, ordering and reviewing diagnostic tests, and coordinating care with other healthcare providers. This time includes: history taking, physical examination, medical decision making, counseling, ECG interpretation, imaging interpretation, lab interpretation, orders, and education, excluding time spent in the performance of separately billed services. Admission and Anticipated Discharge Date Admission Date: May 26, 2024 Subjective Patient seen and examined at bedside. Patient doing much better today. States the diarrhea has essentially resolved. He would like to try eating solid food and working with physical therapy before potential discharge. Review of Systems Review of Systems: CONSTITUTIONAL: fatigue, weakness EYES: Patient denies any visual symptoms. EARS, NOSE, AND THROAT: No difficulties with hearing. No symptoms of rhinitis or sore throat. CARDIOVASCULAR: Patient denies chest pains, palpitations, orthopnea and paroxysmal nocturnal dyspnea. RESPIRATORY: No dyspnea on exertion, no wheezing or cough. GI: No nausea, vomiting, diarrhea, constipation, abdominal pain, hematochezia or melena. : No urinary hesitancy or dribbling. No nocturia or urinary frequency. No abnormal urethral discharge. MUSCULOSKELETAL: No myalgias or arthralgias. NEUROLOGIC: No chronic headaches, no seizures. Patient denies numbness, tingling or weakness. PSYCHIATRIC: Patient denies problems with mood disturbance. No problems with anxiety. ENDOCRINE: No excessive urination or excessive thirst. DERMATOLOGIC: Patient denies any rashes or skin changes. Physical Exam Physical Exam: Gen: A&O 3 NAD HEENT: NCAT, EOMI, not icteric. External ears normal. No rhinorrhea. Moist mucous membranes. Neck: Supple, full range of motion, no observable masses, No meningeal sign. Lungs: No Respiratory distress. CV: RRR, no edema. Abdomen: Soft, nondistended, No rebound tenderness. MSK: No joint swelling, no redness. Skin: No rashes, petechiae, lesions. Normal color per patient. Neuro: Normal Gait, Grossly intact. Psych: Appropriate for situation. Results & Data Results & Data Vital Signs (Past 12 Hours) Vital Signs Temp Pulse Resp BP BP Pulse Ox O2 Del Method 05/27/24 13:26 66 102/63 05/27/24 08:37 64 114/63 94 Room Air 05/27/24 07:10 36.6 C 64 16 106/59 L 90 Room Air Laboratory Results -personally reviewed, potassium of 3.4 consistent with diarrhea Medications Administered Alprazolam (Alprazolam 0.25 Mg Tablet) 0.25 mg PO HS PRN PRN Reason: Anxiety/Sleep Stop: 06/25/24 12:38 Last Admin: 05/26/24 19:55 Dose: 0.25 mg Documented By: ANS Amiodarone HCl (Amiodarone 200 Mg Tab) 200 mg PO DAILY [facility] Stop: 06/26/24 08:59 Last Admin: 05/27/24 08:44 Dose: 200 mg Documented By: CS Ascorbic Acid (Ascorbic Acid 500 Mg Tab) 500 mg PO QAM [facility] Stop: 06/26/24 08:59 Last Admin: 05/27/24 08:39 Dose: 500 mg Documented By: CS Aspirin (Aspirin 81 Mg Ectab) 81 mg PO QAM [facility] Stop: 06/26/24 08:59 Last Admin: 05/27/24 08:39 Dose: 81 mg Documented By: JIE Atorvastatin Calcium (Atorvastatin 40 Mg Tab) 40 mg PO QPM [facility] Stop: 06/25/24 20:59 Last Admin: 05/26/24 21:56 Dose: 40 mg Documented By: ANS Dabigatran (Dabigatran Etexilate 75 Mg Cap) 150 mg PO BID [facility] Stop: 06/25/24 20:59 Last Admin: 05/27/24 08:40 Dose: 150 mg Documented By: Admin: 05/26/24 21:56 Dose: 150 mg Documented By: DILAN Digoxin (Digoxin 0.125 Mg Tab) 0.125 mg PO HS [facility] Stop: 06/25/24 20:59 Last Admin: 05/26/24 21:57 Dose: Not Given Documented By: DILAN Duloxetine HCl (Duloxetine Hcl 20 Mg Cap) 20 mg PO QAM [facility] Stop: 06/26/24 08:59 Last Admin: 05/27/24 08:39 Dose: 20 mg Documented By: JIE Fluticasone Furoate (Fluticasone Furoate 200mcg 14 Puffs/Inhaler) 1 puffs INH DAILY [facility] Stop: 06/26/24 08:59 Last Admin: 05/27/24 08:45 Dose: 1 puffs Documented By: JIE Levothyroxine Sodium (Levothyroxine Sodium 25 Mcg Tablet) 25 mcg PO DAILYBB [facility] Stop: 06/26/24 06:29 Last Admin: 05/27/24 06:11 Dose: 25 mcg Documented By: DILAN Midodrine (Midodrine Hcl 10 Mg Tab) 10 mg PO TID [facility] Stop: 06/25/24 13:59 Last Admin: 05/27/24 13:27 Dose: 10 mg Documented By: Admin: 05/27/24 08:39 Dose: 10 mg Documented By: Admin: 05/26/24 21:55 Dose: 10 mg Documented By: Admin: 05/26/24 13:37 Dose: 10 mg Documented By: LINDSEY Mirtazapine (Mirtazapine Tab 15 Mg Tab) 15 mg PO HS [facility] Stop: 06/25/24 20:59 Last Admin: 05/26/24 21:56 Dose: 15 mg Documented By: DILAN Montelukast Sodium (Montelukast Sodium 10 Mg Tablet) 10 mg PO DAILY [facility] Stop: 06/26/24 08:59 Last Admin: 05/27/24 08:38 Dose: 10 mg Documented By: JIE Oxycodone HCl (Oxycodone Hcl Ir 5 Mg Tab (Immediate Release)) 5 mg PO Q4H PRN PRN Reason: Pain Stop: 06/09/24 12:38 Last Admin: 05/27/24 02:51 Dose: 5 mg Documented By: Admin: 05/26/24 19:56 Dose: 5 mg Documented By: Admin: 05/26/24 13:41 Dose: 5 mg Documented By: LINDSEY Tamsulosin HCl (Tamsulosin Hcl 0.4 Mg Cap) 0.4 mg PO DAILY [facility] Stop: 06/26/24 08:59 Last Admin: 05/27/24 08:38 Dose: 0.4 mg Documented By: JIE Umeclidinium/Vilanterol (Umeclidinium/Vilanterol 62.5/25mcg 7 Puffs/Inhaler) 1 puffs INH DAILY [facility] Stop: 06/26/24 08:59 Last Admin: 05/27/24 08:45 Dose: 1 puffs Documented By: JIE (5) Chronic obstructive pulmonary disease COPD type: emphysema Emphysema type: panlobular Qualified Code(s): J43.1 - Panlobular emphysema
[2024-05-28 07:24] VITALS: PULSE 77; RESP 16; TEMP 97.9; O2SAT 91
[2024-05-28 13:50] VITALS: BP 95/61
--- NOTE | 2024-05-28 18:27 | Discharge Summary ---
Discharge Summary Date of Service May 28, 2024 Principal Dx & Hospital Course #1 = Principal Diagnosis (1) Esophageal adenocarcinoma: (2) Urothelial carcinoma of bladder: (3) Weakness generalized: (4) Dyspnea and respiratory abnormality: (5) Chronic obstructive pulmonary disease: (6) HLD (hyperlipidemia): (7) CHF (congestive heart failure): Plan Assessment and plan: N/V/D, resolving: Suspect viral etiology -much improved today -worked with PT/OT, feels good to go home Hx esophageal cancer with lung nodule and hepatic mets: Currently on Opdivo, follows with heme-onc, last infusion 05/17/2024 PTT likely prolonged secondary to liver lesions Hx COPD Hx chronic right lung pleural effusion Managed on Trelegy and montelukast, follows with pulm outpatient Hx diastolic CHF with normal EF: Orthostatic hypotension: Last echo in September 2023 with an EF of 50-55% and mild diastolic dysfunction Continue midodrine Hx hypothyroidism: Continue Synthroid Hx AF on AC: Currently in sinus rhythm, continue digoxin/Pradaxa/amiodarone Feeding/fluids: regular Analgesia: tylenol Sedation: na Thromboprophylaxis: pradaxa Head up position: na Ulcer prophylaxis: na Glycemic control: na Spontaneous breathing trial: on room air Bowel care: na Indwelling catheter removal: na Deescalation of antibiotics: na I spent a total of 45 minutes in direct patient care, including [id number] time with the patient and/or family, reviewing medical records, ordering and reviewing diagnostic tests, and coordinating care with other healthcare providers. This time includes: history taking, physical examination, medical decision making, counseling, ECG interpretation, imaging interpretation, lab interpretation, orders, and education, excluding time spent in the performance of separately billed services. Notes For Next Care Provider The patient is a 78-year-old male with a past medical history of esophageal adenocarcinomawith lung nodules, chronic right pleural effusion liver lesionson Opdivo, atrial fibrillation, HLD, anxiety, COPD on Trelegy, bladder mass s/p TURP June 19, 2023, noninvasive low-grade papillary urothelial carcinoma, diastolic CHF, HTN, PAD s/p bypass for right popliteal artery aneurysm who presents to the ED on 05/22/2024 with complaints of nausea/vomiting/diarrhea for the past 5 days. Patient had his last chemo treatment on 05/17/2024. On medicine, patient given supportive care with significant improvement, patient tolerating solid foods without difficulty. PT/OT worked with patient and patient feels ready to go home on 05/28/2024. Of note, discussed concern regarding last chemotherapy treatment coming up and that it may cause worse toxicity, advised to discuss with oncologist. Medication Changes From Visit -na Admission HPI Per Admitting Provider The patient is a 78-year-old male with a past medical history of esophageal adenocarcinomawith lung nodules, chronic right pleural effusion liver lesionson Opdivo, atrial fibrillation, HLD, anxiety, COPD on Trelegy, bladder mass s/p TURP June 19, 2023, noninvasive low-grade papillary urothelial carcinoma, diastolic CHF, HTN, PAD s/p bypass for right popliteal artery aneurysm who presents to the ED on 05/22/2024 with complaints of nausea/vomiting/diarrhea for the past 5 days. Patient had his last chemo treatment on 05/17/2024. Patient also reported a mechanical fall on 05/23 secondary to weakness. Patient reports he has been unable to keep his medications down over the past few days. SBP's in the 80s on arrival to the ED, this improved with IV fluids On arrival to the ED, labs are remarkable for hemoglobin 9.1, INR 1.3, APTT 82, sodium 134, potassium 3.4, BUN 34, Chest x-ray negative Hip/pelvis x-ray negative Head CT negative EKG showed normal sinus rhythm in the 70s. The patient was given IV fluids and Zofran in the ED and will be admitted for further management Discharge Exam Gen: A&O 3 NAD HEENT: NCAT, EOMI, not icteric. External ears normal. No rhinorrhea. Moist mucous membranes. Neck: Supple, full range of motion, no observable masses, No meningeal sign. Lungs: No Respiratory distress. CV: RRR, no edema. Abdomen: Soft, nondistended, No rebound tenderness. MSK: No joint swelling, no redness. Skin: No rashes, petechiae, lesions. Normal color per patient. Neuro: Normal Gait, Grossly intact. Psych: Appropriate for situation. Updated Medication List Medication Instructions Recorded Confirmed Type aspirin 81 mg tablet,delayed 81 mg PO QAM 05/24/23 05/26/24 History release (Adult Low Dose Aspirin) atorvastatin 40 mg tablet 40 mg PO QPM 05/24/23 05/26/24 History fluticasone propionate 50 1 spray intranasal BID 05/24/23 05/26/24 History mcg/actuation nasal spray,suspension (Allergy Relief (fluticasone)) midodrine 10 mg tablet 10 mg PO TID 05/24/23 05/26/24 History montelukast 10 mg tablet 10 mg PO DAILY 05/24/23 05/26/24 History multivitamin 1 tab PO DAILY 05/24/23 05/26/24 History ascorbate calcium (vitamin C) 500 500 mg PO QAM 06/01/23 05/26/24 History mg tablet loratadine 10 mg tablet 10 mg PO QAM 06/01/23 05/26/24 History tamsulosin 0.4 mg capsule 0.4 mg PO DAILY 06/01/23 05/26/24 History sodium chloride 0.65 % nasal spray 1 spray intranasal BID PRN dryness 06/05/23 05/26/24 History aerosol (Saline Mist) menthol 0.44 %-zinc oxide 20.6 % 1 applic topical QID PRN Rash 06/13/23 05/26/24 History topical ointment (Calmoseptine) albuterol sulfate 90 mcg/actuation 2 puff inhalation Q6H PRN 07/16/23 05/26/24 Rx aerosol inhaler shortness of breath or wheezing #3 Inhalers mirtazapine 15 mg tablet 15 mg PO HS 08/24/23 05/26/24 History oxycodone 5 mg tablet 5 mg PO Q4H PRN Pain 08/24/23 05/26/24 History dabigatran etexilate 150 mg capsule 150 mg PO BID 09/14/23 05/26/24 History polyethylene glycol 3350 17 17 g PO DAILY PRN Constipation 09/14/23 05/26/24 History gram/dose oral powder (Miralax) amiodarone 200 mg tablet 200 mg PO DAILY 10/26/23 05/26/24 History alprazolam 0.25 mg tablet 0.25 mg PO HS PRN Anxiety/Sleep 05/26/24 05/26/24 History digoxin 125 mcg (0.125 mg) tablet 125 mcg PO HS 05/26/24 05/26/24 History duloxetine 20 mg capsule,delayed 20 mg PO QAM 05/26/24 05/26/24 History release fluticasone fur. 200 mcg-umeclid 1 inh inhalation QAM 05/26/24 05/26/24 History 62.5 mcg-vilant 25 mcg inhalat.powder (Trelegy Ellipta) levothyroxine 25 mcg tablet 25 mcg PO DAILYBB 05/26/24 05/26/24 History Hospital Stay Data Consultations 05/26/24 12:35 ED Decision to Admit Stat Diagnostic Imagining Performed 05/26/24 11:07 CT head/brain wo con Stat Pending Results Patient Have Any Pending Studies at Discharge: No Discharge Instructions Given to Patient (Per Discharging Provider) 1. Please stay hydrated. 2. Increase activity as tolerated. 3. Discuss next chemotherapy dose with oncologist. Total Time Total Time Spent Total Time Spent (In Minutes): I spent a total of 35 minutes in direct patient care, including [id number] time with the patient and/or family, reviewing medical records, ordering and reviewing diagnostic tests, and coordinating care with other healthcare providers. This time includes: history taking, physical examination, medical decision making, counseling, ECG interpretation, imaging interpretation, lab interpretation, orders, and education, excluding time spent in the performance of separately billed services.
== END 2024-05-28 15:36 | disposition home or self-care (01) | DRG 391 ==
LOC: ED 08:58 → SUATTDRO 12:32 → EDINP 14:40 → 3W 14:55